=== PATIENT | female | born 1940 | race Caucasian/White ===

== ENCOUNTER 2016-08-31 11:33 | Emergency (ER) | payer MEDICARE, MEDICAID ==
--- NOTE | 2016-08-31 12:30 | RAD ---
EXAM DESCRIPTION: XR CHEST 1 VIEW CLINICAL HISTORY: SOB COMPARISON: May 19, 2016 IMPRESSION: Single AP portable upright view of the chest shows cardiac silhouette to be enlarged without pulmonary vascular congestion. Large right retrocardiac hiatal hernia is again noted. Chronic appearing increased interstitial changes to lungs are seen without acute appearing infiltrate or consolidation. Nodular densities in the periphery of the right upper lobe have a similar appearance to previous exam given differences in imaging technique and patient positioning. Secondary degenerative changes of the shoulders are seen left greater than right. Electronically signed by: Miles Blanton MD 08/31/2016 12:28
--- NOTE | 2016-08-31 12:42 | ED.PDOC ---
History of Present Illness - General Chief Complaint: Respiratory Problem Stated Complaint: wheezing, difficulty breathing Time Seen by Provider: 08/31/16 12:35 Additional Information: PT C/O CONTINUED SOB AND DIFFICULTY BREATHING. - History of Present Illness Timing/Duration: other - 3-4 WEEKS BUT WORSE PAST WEEK Severity: moderate Improving Factors: nothing Worsening Factors: nothing Associated Symptoms: other - SAW PCP. WAS STARTED ON ABX AND PO STEROIDS WITHOUT RELIEF Allergies/Adverse Reactions: Allergies Amitriptyline Allergy (Intermediate, Verified 08/31/16 11:53) Ciprofloxacin [From Cipro] Allergy (Intermediate, Verified 08/31/16 11:53) Codeine Allergy (Intermediate, Verified 08/31/16 11:53) Enalapril [From Vasotec] Allergy (Intermediate, Verified 08/31/16 11:53) Iodine Allergy (Intermediate, Verified 08/31/16 11:53) Naloxone [From Talwin Nx] Allergy (Intermediate, Verified 08/31/16 11:53) Penicillin G Allergy (Intermediate, Verified 08/31/16 11:53) Pentazocine [From Talwin Nx] Allergy (Intermediate, Verified 08/31/16 11:53) Tetanus Toxoid Allergy (Intermediate, Verified 08/31/16 11:53) Home Medications: Ambulatory Orders Acetaminophen [Tylenol] 650 mg PO Q6H PRN 08/25/15 Atorvastatin Calcium [Lipitor] 20 mg PO BEDTIME 08/25/15 Clonazepam 0.5 mg PO BID PRN 08/25/15 Furosemide [Lasix] 40 mg PO DAILY 08/25/15 Lisinopril [Prinivil] 2.5 mg PO DAILY 08/25/15 Montelukast Sodium [Singulair] 10 mg PO BEDTIME 08/25/15 Potassium Chloride [Micro-K] 10 meq PO BIDFD 08/25/15 Escitalopram Oxalate [Lexapro] 20 mg PO DAILY 12/08/15 Famotidine [Pepcid] 20 mg PO BID 12/08/15 Meclizine HCl 25 mg PO DAILY 12/08/15 Mirtazapine [Remeron] 7.5 mg PO BEDTIME 12/08/15 Tramadol HCl [Ultram] 50 mg PO Q6HRS PRN #20 tab 12/08/15 Fluticasone/Salmeterol 250/50 [Advair 250/50 Diskus] 1 puff INH DAILY 05/19/16 Albuterol Sulfate Nebs [Proventil Nebs] 2.5 mg INH TID #100 vial 05/20/16 Cefdinir [Omnicef] 300 mg PO BID #8 cap 05/20/16 Omeprazole Magnesium [Prilosec Otc] 20 mg PO BID #60 tab 05/20/16 predniSONE [Prednisone] 10 mg PO QAM #15 tab 05/20/16 Doxycycline (Monohydrate) [Doxycycline Monohydrate] 100 mg PO BID #20 cap Prednisone [Deltasone] 20 mg PO BID #10 tab 08/31/16 Review of Systems - Review of Systems Constitutional: Denies: chills, fever EENTM: Denies: blurred vision, ear pain, nose congestion, throat pain Respiratory: States: cough, orthopnea, short of breath, wheezing, other - OBSTETRICIAN Cardiology: Denies: chest pain, edema, palpitations, syncope Gastrointestinal/Abdominal: Denies: abdominal pain, nausea, vomiting Genitourinary: States: no symptoms reported Musculoskeletal: States: no symptoms reported Skin: States: no symptoms reported Neurological: Denies: headache, numbness, weakness Endocrine: States: no symptoms reported Hematologic/Lymphatic: States: no symptoms reported Past Medical History (General) - Patient Medical History Hx Seizures: Yes - per previous medical record Hx Stroke: No Hx Dementia: Yes Hx Asthma: Yes Hx of COPD: Yes Hx Cardiac Disorders: Yes Hx Congestive Heart Failure: Yes Hx Pacemaker: No Hx Hypertension: Yes Hx Thyroid Disease: No Hx Diabetes: Yes Hx Gastroesophageal Reflux: Yes Hx Cancer: No Hx of HIV: No Hx Hepatitis C: No Hx MRSA: Yes MRSA Source:: Blood Surgical History: appendectomy, cholecystectomy, tonsillectomy, Hysterectomy - Vaccination History Hx Tetanus, Diphtheria Vaccination: Yes Hx Influenza Vaccination: No Hx Pneumococcal Vaccination: Yes - 2012 (?) - Social History Hx Tobacco Use: Yes Hx Chewing Tobacco Use: No Hx Alcohol Use: No Hx Substance Use: No Hx Substance Use Treatment: No Hx Depression: No Hx Physical Abuse: No Hx Emotional Abuse: No - Female History Patient is a Female of Child Bearing Age (10 -59 yrs old): No Patient : No Family Medical History - Family History Mother Family History: Unknown Living Status: Physical Exam - Physical Exam General Appearance: Alert, No apparent distress Eye Exam: bilateral normal Ears, Nose, Throat: normal ENT inspection, normal pharynx Neck: non-tender, full range of motion, normal inspection Respiratory: other - INCREASED EXP PHASE, DIMINISHED BREATHSOUNDS, CARLA EXP WHEEZES. NO RALES, NO RHONCHI Cardiovascular/Chest: regular rate, rhythm, no edema, no murmur Gastrointestinal/Abdominal: normal bowel sounds, non tender, soft, no organomegaly Back Exam: normal inspection, no CVA tenderness Extremity: non-tender, normal inspection Neurologic: no motor/sensory deficits, normal mood/affect, oriented x 3 Skin Exam: normal color, warm/dry Lymphatic: no adenopathy Progress - Progress Progress: 08/31/16 15:55 FEELS MUCH BETTER. GETTING NEB 3 NOW. STILL WITH SOME WHEEZES BUT STATES THAT'S NL FOR HER. WANTS TO GO HOME. SATS 95% ON 2L WHICH SHE IS ON AT HOME. 08/31/16 15:58 - EKG/XRAY/CT EKG: Sinus, no ST T wave changes Comments: RATE 88, NL AXIS, NL INTERVALS, NO T WAVE ABN. XRAY: chest - DEVEN, COPD EXACERBATION Departure - Departure Clinical Impression: COPD (chronic obstructive pulmonary disease) with acute bronchitis HTN (hypertension) Qualifiers: Hypertension type: essential hypertension Qualifier Code: (I10) Essential ( primary) hypertension Diabetes Qualifiers: Diabetes mellitus type: type 2 Diabetes mellitus complication status: without complication Qualifier Code: (E11.9) Type 2 diabetes mellitus without complications Time of Disposition: 15:59 Disposition: Discharge to Home or Self Care Condition: Fair Departure Forms: ED Discharge - Pt. Copy, Patient Portal Self Enrollment Prescriptions: Prednisone [Deltasone] 20 mg PO BID #10 tab Doxycycline (Monohydrate) [Doxycycline Monohydrate] 100 mg PO BID #20 cap Home Medications: Ambulatory Orders Acetaminophen [Tylenol] 650 mg PO Q6H PRN 08/25/15 Atorvastatin Calcium [Lipitor] 20 mg PO BEDTIME 08/25/15 Clonazepam 0.5 mg PO BID PRN 08/25/15 Furosemide [Lasix] 40 mg PO DAILY 08/25/15 Lisinopril [Prinivil] 2.5 mg PO DAILY 08/25/15 Montelukast Sodium [Singulair] 10 mg PO BEDTIME 08/25/15 Potassium Chloride [Micro-K] 10 meq PO BIDFD 08/25/15 Escitalopram Oxalate [Lexapro] 20 mg PO DAILY 12/08/15 Famotidine [Pepcid] 20 mg PO BID 12/08/15 Meclizine HCl 25 mg PO DAILY 12/08/15 Mirtazapine [Remeron] 7.5 mg PO BEDTIME 12/08/15 Tramadol HCl [Ultram] 50 mg PO Q6HRS PRN #20 tab 12/08/15 Fluticasone/Salmeterol 250/50 [Advair 250/50 Diskus] 1 puff INH DAILY 05/19/16 Albuterol Sulfate Nebs [Proventil Nebs] 2.5 mg INH TID #100 vial 05/20/16 Cefdinir [Omnicef] 300 mg PO BID #8 cap 05/20/16 Omeprazole Magnesium [Prilosec Otc] 20 mg PO BID #60 tab 05/20/16 predniSONE [Prednisone] 10 mg PO QAM #15 tab 05/20/16 Doxycycline (Monohydrate) [Doxycycline Monohydrate] 100 mg PO BID #20 cap Prednisone [Deltasone] 20 mg PO BID #10 tab 08/31/16
[2016-08-31] MEDS ORDERED: IPRATROPIUM/ALBUTEROL 3 ML VIAL NEB ONE ×2 (12:53→14:58)
[2016-08-31] MEDS ORDERED: methylPREDNISolone SODIUM SUC 125 MG/2 ML VIAL IV ONE (12:55)
[2016-08-31 16:43] VITALS: BP 152/74; TEMP 99.1; O2SAT 95
== END 2016-08-31 16:07 | disposition home or self-care (01) ==
LOC: ER 11:33
DX: J44.0 Chronic obstructive pulmonary disease with (acute) lower respiratory infection (principal); J20.9 Acute bronchitis, unspecified; E11.9 Type 2 diabetes mellitus without complications; Z99.81 Dependence on supplemental oxygen; Z79.899 Other long term (current) drug therapy; Z88.6 Allergy status to analgesic agent; Z88.0 Allergy status to penicillin; Z88.7 Allergy status to serum and vaccine; Z88.8 Allergy status to other drugs, medicaments and biological substances; F03.90 Unspecified dementia, unspecified severity, without behavioral disturbance, psychotic disturbance, mood disturbance, and anxiety; I11.0 Hypertensive heart disease with heart failure; I50.9 Heart failure, unspecified; K21.9 Gastro-esophageal reflux disease without esophagitis; Z86.14 Personal history of Methicillin resistant Staphylococcus aureus infection; Z87.891 Personal history of nicotine dependence
CPT/HCPCS: 36415; 71010; 80048; 82550; 82553; 83880; 84484; 85025; 85610; 85730; 93005; 94640; J2930; J7620

== ENCOUNTER 2016-09-21 11:14 | Inpatient (IN) | payer MEDICARE, MEDICAID ==
[2016-09-21] MEDS ORDERED: IPRATROPIUM/ALBUTEROL 3 ML VIAL NEB ONE ×2 (12:09→12:10)
[2016-09-21] MEDS ORDERED: cefTRIAXone SODIUM 1 GM in SODIUM CHL 0.9% 50ML MIN-BAG+ 50 ML IVPB ONE (12:09)
[2016-09-21] MEDS ORDERED: cefTRIAXone SODIUM 1 GM VIAL ONE (12:22)
[2016-09-21] MEDS ORDERED: SODIUM CHL 0.9% 50ML MIN-BAG+ 50 ML IVPB ONE (12:22)
--- NOTE | 2016-09-21 12:38 | RAD ---
EXAM DESCRIPTION: XR CHEST 2 VIEWS CLINICAL HISTORY: sob COMPARISON: None Available. TECHNIQUE: PA/lateral FINDINGS: Moderate size hiatal hernia. Cardiomegaly. Atherosclerotic disease of the aortic arch. The lungs are clear. No pleural effusion or pneumothorax. Coronaries-. IMPRESSION: No acute findings on today's study. Electronically signed by: Theo Daniels MD 09/21/2016 12:37
--- NOTE | 2016-09-21 12:38 | RAD ---
EXAM DESCRIPTION: Abdomen radiography. CLINICAL HISTORY: Abdominal pain. COMPARISON: None. TECHNIQUE: One view. FINDINGS: Bowel gas pattern is non-obstructed. There is no obvious free intraperitoneal air. Visualized segments of the abdominal organs are unremarkable. No suspicious bone lesion or fracture is seen. Multilevel lumbar fusion and scoliosis. IMPRESSION: Nonspecific small bowel gas pattern. Possible constipation. Electronically signed by: Theo Daniels MD 09/21/2016 12:36
[2016-09-21] MEDS ORDERED: methylPREDNISolone SODIUM SUC 125 MG/2 ML VIAL IV ONE (13:43)
[2016-09-21] MEDS ORDERED: SODIUM CHL 0.9% 50ML VIAL 3 ML, ALBUTEROL SULFATE NEBS 15 MG NEB ONE ×2 (13:43)
[2016-09-21] MEDS ORDERED: AZITHROMYCIN 250 MG TAB PO ONE (13:44)
[2016-09-21] MEDS ORDERED: MONTELUKAST SODIUM 10 MG TAB PO ONE (13:44)
[2016-09-21] MEDS ORDERED: SODIUM CHLORIDE 0.9% 50 ML VIAL ONE (14:10)
[2016-09-21] MEDS ORDERED: ALBUTEROL SULFATE 2.5 MG/3 ML VIAL NEB ONE ×2 (14:10)
--- NOTE | 2016-09-21 16:41 | ED.PDOC ---
History of Present Illness - General Chief Complaint: Respiratory Problem Stated Complaint: shortness of breath Time Seen by Provider: 09/21/16 12:03 Source: patient Exam Limitations: no limitations - History of Present Illness Initial Comments: The patient is a 76-year-old female presenting to the emergency room secondary to progressive shortness of breath. She has a history of significant COPD and asthma in the past and has had multiple admissions due to this. She denies any fevers. She thinks she may have a mildly productive cough. She is having some increased pain in her right chest with the cough. Symptoms have been progressive over the last week. No syncope or near syncope. She does get very short of breath with any movement. She does have home oxygen. She reports that she has been doing her nebulizer treatments but they've apparently only been done twice daily. Timing/Duration: 1 week Severity: severe Improving Factors: nothing Worsening Factors: nothing Associated Symptoms: cough, malaise, shortness of breath, weakness Allergies/Adverse Reactions: Allergies Amitriptyline Allergy (Intermediate, Verified 08/31/16 11:53) Ciprofloxacin [From Cipro] Allergy (Intermediate, Verified 08/31/16 11:53) Codeine Allergy (Intermediate, Verified 08/31/16 11:53) Enalapril [From Vasotec] Allergy (Intermediate, Verified 08/31/16 11:53) Iodine Allergy (Intermediate, Verified 08/31/16 11:53) Naloxone [From Talwin Nx] Allergy (Intermediate, Verified 08/31/16 11:53) Penicillin G Allergy (Intermediate, Verified 08/31/16 11:53) Pentazocine [From Talwin Nx] Allergy (Intermediate, Verified 08/31/16 11:53) Tetanus Toxoid Allergy (Intermediate, Verified 08/31/16 11:53) Home Medications: Ambulatory Orders Acetaminophen [Tylenol] 650 mg PO Q6H PRN 08/25/15 Atorvastatin Calcium [Lipitor] 20 mg PO BEDTIME 08/25/15 Clonazepam 0.5 mg PO BID PRN 08/25/15 Furosemide [Lasix] 40 mg PO DAILY 08/25/15 Lisinopril [Prinivil] 2.5 mg PO DAILY 08/25/15 Montelukast Sodium [Singulair] 10 mg PO BEDTIME 08/25/15 Potassium Chloride [Micro-K] 10 meq PO BIDFD 08/25/15 Escitalopram Oxalate [Lexapro] 20 mg PO DAILY 12/08/15 Famotidine [Pepcid] 20 mg PO BID 12/08/15 Meclizine HCl 25 mg PO DAILY 12/08/15 Mirtazapine [Remeron] 7.5 mg PO BEDTIME 12/08/15 Tramadol HCl [Ultram] 50 mg PO Q6HRS PRN #20 tab 12/08/15 Fluticasone/Salmeterol 250/50 [Advair 250/50 Diskus] 1 puff INH DAILY 05/19/16 Albuterol Sulfate Nebs [Proventil Nebs] 2.5 mg INH TID #100 vial 05/20/16 Cefdinir [Omnicef] 300 mg PO BID #8 cap 05/20/16 Omeprazole Magnesium [Prilosec Otc] 20 mg PO BID #60 tab 05/20/16 predniSONE [Prednisone] 10 mg PO QAM #15 tab 05/20/16 Doxycycline (Monohydrate) [Doxycycline Monohydrate] 100 mg PO BID #20 cap Prednisone [Deltasone] 20 mg PO BID #10 tab 08/31/16 Review of Systems - Review of Systems Constitutional: States: malaise, weakness EENTM: States: nose congestion Respiratory: States: cough, short of breath, wheezing Cardiology: States: no symptoms reported, chest pain - see above Gastrointestinal/Abdominal: States: no symptoms reported Genitourinary: States: no symptoms reported Musculoskeletal: States: no symptoms reported Skin: States: no symptoms reported Neurological: States: no symptoms reported Endocrine: States: no symptoms reported All other Systems: No Change from Baseline Past Medical History (General) - Patient Medical History Hx Seizures: Yes - per previous medical record Hx Stroke: No Hx Dementia: Yes Hx Asthma: Yes Hx of COPD: Yes Hx Cardiac Disorders: Yes Hx Congestive Heart Failure: Yes Hx Pacemaker: No Hx Hypertension: Yes Hx Thyroid Disease: No Hx Diabetes: Yes Hx Gastroesophageal Reflux: Yes Hx Cancer: No Hx of HIV: No Hx Hepatitis C: No Hx MRSA: Yes MRSA Source:: Blood - Vaccination History Hx Tetanus, Diphtheria Vaccination: Yes Hx Influenza Vaccination: No Hx Pneumococcal Vaccination: Yes - 2012 (?) - Social History Hx Tobacco Use: Yes Hx Chewing Tobacco Use: No Hx Alcohol Use: No Hx Substance Use: No Hx Substance Use Treatment: No Hx Depression: No Hx Physical Abuse: No Hx Emotional Abuse: No - Female History Patient : No Family Medical History - Family History Mother Family History: Unknown Living Status: Physical Exam - Physical Exam General Appearance: Alert, Obvious distress Eye Exam: bilateral normal Ears, Nose, Throat: normal pharynx, nasal congestion Neck: full range of motion, supple Respiratory: other - the patient does have some right lower rib cage discomfort palpation. No bruising. No crepitus. She has severely decreased air movement bilaterally. Breath sounds are actually very quiet initially due to this. Mild scattered wheezes. No rhonchi and no rales are obvious. She does have significant accessory muscle use and is in some reported distress upon arrival. Cardiovascular/Chest: normal peripheral pulses, no edema Peripheral Pulses: radial,right: 2+, radial,left: 2+, dorsalis pedis,right: 2+, dorsalis pedis,left: 2+ Gastrointestinal/Abdominal: non tender, soft Rectal Exam: deferred Back Exam: normal inspection, no CVA tenderness, no vertebral tenderness Extremity: normal range of motion, non-tender, normal inspection, no pedal edema , normal capillary refill Neurologic: no motor/sensory deficits, alert, normal mood/affect, oriented x 3 - she does have some mild dementia Skin Exam: normal color Comments: Vital Signs - 24 hr 09/21/16 09/21/16 11:15 12:20 Temperature 99.3 F Pulse Rate 92 H Pulse Rate [ 88 monitor] Respiratory 22 20 Rate Blood Pressure 174/71 [Left Arm] O2 Sat by Pulse 93 L 94 L Oximetry Progress - Progress Progress: 09/21/16 16:43 the patient is a 76-year-old female presenting with an acute COPD or asthma exacerbation. She does have very little air movement initially. She does have better air movement after an hour-long nebulizer treatment. She has also received IV steroids and some oral Singulair. The patient actually sounds much worse now but that simply because she is actually moving some air. Work of breathing has decreased. The patient will be admitted for COPD exacerbation. She has received her first dose of antibiotics. No obvious pneumonia on x- ray or exam at this time. - Results/Orders Results/Orders: 09/21/16 12:10 Telemetry .CONTINUOUS 09/21/16 12:11 Oxygen Delivery Assessment: QSHIFT UA [URINALYSIS] Stat pending at this time 09/22/16 09:00 Oxygen Daily Laboratory Results - last 24 hr 09/21/16 13:00 WBC 16.0 H RBC 3.58 L Hgb 10.6 L Hct 33.3 L MCV 93.0 MCH 29.6 MCHC 31.8 L RDW 14.0 Plt Count 113 L MPV 8.3 Absolute Neuts (auto) 12.90 H Absolute Lymphs (auto) 1.90 Absolute Monos (auto) 0.90 H Absolute Eos (auto) 0.20 Absolute Basos (auto) 0.10 Neutrophils % 80.8 H Lymphocytes % 12.0 L Monocytes % 5.6 Eosinophils % 1.2 Basophils % 0.4 PT 10.7 INR 0.940 PTT (SP) 23.7 L Sodium 139 Potassium 4.1 Chloride 103 Carbon Dioxide 30 Anion Gap 10.1 L BUN 33 H Creatinine 1.23 BUN/Creatinine Ratio 26.8 H Random Glucose 178 H Serum Osmolality 289.2 Calcium 9.1 Total Bilirubin 0.6 AST 16 ALT 17 Alkaline Phosphatase 73 Creatine Kinase 29 CK-MB (CK-2) 4.0 CK-MB (CK-2) % Not Reportable Troponin I 0.02 B-Natriuretic Peptide 114.0 H Serum Total Protein 6.5 Albumin 3.6 Globulin 2.9 Albumin/Globulin Ratio 1.2 chest x-ray shows emphysematous type changes. No obvious pneumonia. Departure - Departure Clinical Impression: COPD (chronic obstructive pulmonary disease) with acute bronchitis Disposition: Admit Patient Home Medications: Ambulatory Orders Acetaminophen [Tylenol] 650 mg PO Q6H PRN 08/25/15 Atorvastatin Calcium [Lipitor] 20 mg PO BEDTIME 08/25/15 Clonazepam 0.5 mg PO BID PRN 08/25/15 Furosemide [Lasix] 40 mg PO DAILY 08/25/15 Lisinopril [Prinivil] 2.5 mg PO DAILY 08/25/15 Montelukast Sodium [Singulair] 10 mg PO BEDTIME 08/25/15 Potassium Chloride [Micro-K] 10 meq PO BIDFD 08/25/15 Escitalopram Oxalate [Lexapro] 20 mg PO DAILY 12/08/15 Famotidine [Pepcid] 20 mg PO BID 12/08/15 Meclizine HCl 25 mg PO DAILY 12/08/15 Mirtazapine [Remeron] 7.5 mg PO BEDTIME 12/08/15 Tramadol HCl [Ultram] 50 mg PO Q6HRS PRN #20 tab 12/08/15 Fluticasone/Salmeterol 250/50 [Advair 250/50 Diskus] 1 puff INH DAILY 05/19/16 Albuterol Sulfate Nebs [Proventil Nebs] 2.5 mg INH TID #100 vial 05/20/16 Cefdinir [Omnicef] 300 mg PO BID #8 cap 05/20/16 Omeprazole Magnesium [Prilosec Otc] 20 mg PO BID #60 tab 05/20/16 predniSONE [Prednisone] 10 mg PO QAM #15 tab 05/20/16 Doxycycline (Monohydrate) [Doxycycline Monohydrate] 100 mg PO BID #20 cap Prednisone [Deltasone] 20 mg PO BID #10 tab 08/31/16 Decision To Admit - Decistion To Admit Decision to Admit Reason: Medical Nature Decision to Admit Date: 09/21/16 Decision to Admit Time: 16:44
--- NOTE | 2016-09-21 17:07 | HP ---
SUPERVISING PHYSICIAN: Jarod Tapia MD CHIEF COMPLAINT: Shortness of breath. HISTORY OF PRESENT ILLNESS: Ms. Ramirez is a 76 year-old female who presented to the Emergency Department secondary to worsening shortness of breath. She does have a significant history of chronic obstructive pulmonary disease, asthma and has had multiple admissions in the past for exacerbations. Today, she denies a fever but she thinks she has a worsening cough with some noted chest discomfort with coughing spells on the right side. She notes that her symptoms have been worsening over the last 7 days and that she gets very short of breath with any exertion. She does wear oxygen at home and has been utilizing her breathing treatments but only as prescribed and not using any additional treatments for worsening of her wheezing or shortness of breath. Laboratory studies performed in the Emergency Department showed her to have a leukocytosis with a 16.0 white count with a left shift. Chemistries were fairly unremarkable except for a low magnesium of 1.3 and her BNP was 114. Radiographic studies included abdominal x-ray that showed just nonspecific bowel gas pattern with some possible constipation and chest x-ray indicated per radiology interpretation a moderate sized hiatal hernia. The lungs were essentially clear with no pleural effusions or pneumothorax noted. Initially on her presentation to the Emergency Department, she was in significant shortness of breath at 20 to 24, saturation 93% on nasal cannula at rest and was afebrile. She was given a Duoneb continuous in attempts to lessen her exacerbation of asthma as it was noted she had very little movement of air on admission. She was also given steroids and some Singulair. It was noted that after the breathing treatment, the patient was actually moving some air but her lungs sounded much worse than they did on presentation but her work of breathing had decreased. With the symptoms that she presented with, significantly dyspneic with some mild respiratory distress and having minimally responded to a continuous Duoneb treatment, the patient is now going to be admitted for exacerbation of her chronic obstructive pulmonary disease. She was started on antibiotics and steroids prior to admission. She was admitted in stable condition. PAST MEDICAL HISTORY: 1. Chronic obstructive pulmonary disease with history of asthma and reactive airways disease. 2. Diabetes mellitus, type 2, on no oral or insulin therapy. 3. Hypertension. 4. Degenerative joint disease. 5. History of osteoporosis. 6. 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 7. Rheumatoid arthritis. 8. Gastroesophageal reflux disease. 9. Chronic congestive heart failure with unknown etiology with last echocardiogram in 01/2013 with a notable ejection fraction of 65%. 10. Depression. 11. History of iron deficiency anemia. 12. History of diverticulosis by colonoscopy in [address] Lai. 13. History of restless leg syndrome. PAST SURGICAL HISTORY: 1. Bilateral hip replacement. 2. Left knee replacement. 3. Hysterectomy. 4. Bladder suspension. 5. Breast reduction. 6. Hernia repair. 7. Back surgery. 8. Tonsils and adenoids. 9. Appendectomy. 10. Cholecystectomy. 11. Right cataract removal. HOME MEDICATIONS: 1. Prednisone 10 mg daily. 2. Ultram 50 mg every 6 hours as needed for pain. 3. Prednisone 20 mg b.i.d. 4. Potassium chloride 20 mEq twice a day. 5. Prilosec 20 mg twice a day. 6. Singulair 10 mg at bedtime. 7. Remeron 7.5 mg at bedtime. 8. Meclizine 25 mg daily. 9. Lisinopril 2.5 mg daily. 10. Lasix 40 mg daily. 11. Advair 250/50 Diskus one puff inhaled daily. 12. Pepcid 20 mg twice daily. 13. Lexapro 20 mg daily. 14. Clonazepam 0.5 mg twice daily. 15. Lipitor 20 mg daily. 16. Proventil nebs 2.5 mg 3 times a day. 17. Tylenol 650 mg every 6 hours for pain. ALLERGIES: AMITRIPTYLINE, CIPROFLOXACIN, CODEINE, VASOTEC, IODINE, NALOXONE, PENICILLIN G, PENTAZOCINE, TETANUS TOXOID, MORPHINE. FAMILY HISTORY: Asthma, congestive heart failure, diabetes, coronary artery disease. SOCIAL HISTORY: The patient is . She lives at home with her 2 brothers. 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 She denies ever smoking, but has been around a significant amount of second hand smoke over her lifetime. She denies drinking any alcohol or any illicit drug use. REVIEW OF SYSTEMS: She does note some fevers and chills but no significant weight change. HEENT: No report of hearing or visual changes. CARDIOVASCULAR: Denies any chest pain other than chest pains on the right side with deep inspiration and coughing, no palpitations or syncopal episodes. RESPIRATORY: Significant shortness of breath on exertion as noted in history of present illness with a worsening productive cough. GASTROINTESTINAL: Negative for any vomiting, diarrhea, nausea but does some have some issues with constipation but denies any abdominal pain. GENITOURINARY: Denies dysuria, increased frequency or other urinary symptoms. EXTREMITIES; Reports that she does have periodic lower extremity edema that she takes Lasix for as needed. NEUROLOGICAL: Denies any significant headaches, focal weaknesses but reports that she has had some syncopal episodes in the distant past but none recently. PHYSICAL EXAMINATION: VITAL SIGNS: Temperature 99.3, pulse 88, blood pressure 174/71, respirations 22, 02 saturation 92% on nasal cannula at rest at 2 liters. GENERAL: The patient is alert, resting upon admission to the medical/surgical floor, appears to be in no acute distress. HEENT: Tympanic membranes bilaterally are clear. Oropharynx is pink and moist without any lesions. There is some notable nasal congestion but no drainage. NECK: No jugular venous distention. CHEST: Lungs are notable for severely decreased air movement bilaterally with some wheezing heard throughout, more expiratory than inspiratory. No rhonchi or rales. CARDIOVASCULAR: Regular rate and rhythm without any appreciable murmurs, rubs, or gallops. ABDOMEN: Soft, non-tender, positive bowel sounds. EXTREMITIES: No cyanosis, clubbing, or edema. NEUROLOGIC: She is alert and oriented x 3. Facial features are symmetrical. Extraocular movements are within normal limits. Cranial nerves II through XII are grossly intact. There is no notable focalizing or lateralizing neuromotor deficits. LABORATORY White count 16.0, hemoglobin 10.6, hematocrit 33.3, platelet count 113,000, differential does show a left shift. Coagulation studies show a PT of 10.7, PTT of 23.7. Chemistries show normal electrolytes with a potassium of 4.1 , BUN 32, creatinine 1.23, glucose 178, calcium 9.8, magnesium low at 1.3. Liver functions showed to be within normal limits. BNP was only slightly elevated at 114. Blood cultures pending. Influenza A and B negative. Sputum cultures pending. RADIOLOGY: Abdominal x-ray per radiology interpretation was nonspecific bowel gas pattern with possible constipation. Chest x-ray per radiology interpretation prior to admission to the medical/surgical floor 2 view chest showed no acute findings. ASSESSMENT: 1. Exacerbation of chronic obstructive pulmonary disease with concerns for pneumonia community acquired, with the patient having significant leukocytosis and history of frequent hospitalizations secondary to exacerbation of her chronic obstructive pulmonary disease with patient being in mild respiratory distress upon admission to the Emergency Department. 2. Right-sided chest wall discomfort with deep inspiration without any obvious crepitus in a patient with acute exacerbation of chronic obstructive pulmonary disease with sputum cultures pending. 3. Macrocytic hyperchromic anemia with the patient having a history of iron-deficiency anemia. 4. Gastroesophageal reflux disease. 5. Leukocytosis, moderate with concerns for a developing pneumonia in a patient with severe chronic obstructive pulmonary disease and exacerbation. 6. History of diverticulosis. 7. History of hypertension. 8. Type 2 diabetes mellitus currently on no oral or insulin regimen. 9. Chronic congestive heart failure, undetermined etiology with last echocardiogram in January 2013 with an ejection fraction of 65%. 10. Electrolyte imbalance with a moderate hypomagnesemia. 11. Mild renal insufficiency with slightly elevated BNP possibly secondary to some mild dehydration. 12. History of seizure disorder with no recent mention of any seizures. 13. 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 14. History of osteoporosis. 15. History of depression. 16. History of restless leg syndrome with the patient being on Klonopin and Remeron. 17. Chronic constipation. PLAN: The patient is admitted to the medical/surgical floor for continued treatment and evaluation secondary to her exacerbation of chronic obstructive pulmonary disease. She was given an initial continuous neb treatment in the Emergency Department showing improvements in aeration and stabilization. She was started on antibiotics to include azithromycin, Ceftriaxone which will be continued awaiting a sputum culture. She will be started on q.i.d. Duoneb treatments and albuterol p.r.n. with aggressive pulmonary hygiene and pulmonary toiletry. She will be given 2 grams of magnesium IV tonight and we will recheck the magnesium in the morning. We will plan to recheck additional laboratory to include CBC and BNP as well as a repeat chest x-ray. We will restart her medications once they have been updated and verified. Will anticipate length of stay to be 2 to 3 days. Until the, we will continue to monitor the patient closely and treat appropriately. #[id number] [facility]
[2016-09-21] MEDS ORDERED: ALBUTEROL SULFATE 2.5 MG/3 ML VIAL NEB PRN (17:32)
[2016-09-21] MEDS ORDERED: ONDANSETRON INJ 4 MG/2 ML VIAL IV PRN (17:32)
[2016-09-21] MEDS ORDERED: SODIUM CHLORIDE 0.9% (FLUSH) 10 ML SYG IV PRN (17:32)
[2016-09-21] MEDS ORDERED: ACETAMINOPHEN 325 MG TAB PO PRN (17:32)
[2016-09-21] MEDS ORDERED: IV SET AND CAP CHANGE INJ INJ SCH (18:00)
--- NOTE | 2016-09-21 18:11 | PCM.CORE ---
Physician DVT/VTE - Nurse DVT Assessment & Total Each Risk Factor Represents 3 Points: Age over 75 years, Medical PT with Hx of ND, CHF, Severe infection/sepsis Each Risk Factor is 1 Point: Obesity (BMI >25), Serious Lung disease (pnemonia < 1month, COPD, emphysema,etc) DVT Assessment Score: 8 - 5 or more Very High Risk Treatments: Early Ambulation *, Sequential Compression Device Pharmacological: Enoxaparin 40mg SQ Daily
[2016-09-21] MEDS: ENOXAPARIN SODIUM 40 MG/0.4 ML SYG SUBCU SCH (18:45)
[2016-09-21] MEDS: IPRATROPIUM/ALBUTEROL 3 ML VIAL NEB SCH ×2 (20:45→20:46)
[2016-09-21] MEDS ORDERED: SODIUM CHLORIDE 0.9% (FLUSH) 10 ML SYG IV SCH (21:00)
[2016-09-21] MEDS ORDERED: MAGNESIUM SULFATE PREMIX 2GM 2 GM in PREMIX BAG 1 BAG IVPB ONE (22:33)
[2016-09-21] MEDS ORDERED: MAGNESIUM SULFATE PREMIX 2GM 50 ML IVPB ONE (23:23)
[2016-09-22] MEDS: PANTOPRAZOLE SODIUM IV 40 MG VIAL IV SCH (06:14)
[2016-09-22] MEDS ORDERED: GLUCAGON INJ 1 MG VIAL SUBCU PRN (06:35)
[2016-09-22] MEDS ORDERED: DEXTROSE 50% 25 GM/50 ML SYG IV PRN (06:35)
[2016-09-22] MEDS: INSULIN LISPRO 100 UNITS/ML PEN SUBCU SCH ×4 (06:41→21:18)
[2016-09-22] MEDS ORDERED: AZITHROMYCIN IV 500 MG VIAL IVPB ONE (07:37)
[2016-09-22] MEDS ORDERED: SODIUM CHLORIDE 0.9% 250ML 250 ML ONE (07:37)
[2016-09-22] MEDS ORDERED: SODIUM CHL 0.9% 50ML MIN-BAG+ 50 ML IVPB ONE (07:37)
[2016-09-22] MEDS ORDERED: cefTRIAXone SODIUM 1 GM VIAL ONE (07:37)
--- NOTE | 2016-09-22 07:38 | RAD ---
EXAM DESCRIPTION: XR CHEST 2 VIEWS CLINICAL HISTORY: Pneumonia COMPARISON: 09/21/2016 and 05/19/2016 TECHNIQUE: Two-views of the chest. FINDINGS: Heart size is normal. Large hiatal hernia. No evidence of both hilar adenopathy. Irregular/linear opacity right infrahilar region may relate to perihilar atelectasis or scar. Mild chronic interstitial lung disease right upper lobe laterally. No alveolar consolidation Osteopenia. Compression fracture lower thoracic spine, stable IMPRESSION: Large hiatal hernia Right perihilar/infrahilar linear opacity likely subsegmental atelectasis or scar, not significantly changed Interstitial lung disease in the upper lobe on the right, scar unchanged No acute infiltrate Electronically signed by: Jarod Veloz MD 09/22/2016 07:36
[2016-09-22] MEDS: KCL 20MEQ/0.45% NS 1,000 ML IVS PRN ×2 (07:57→23:38)
[2016-09-22] MEDS: IPRATROPIUM/ALBUTEROL 3 ML VIAL NEB SCH ×4 (08:32→20:28)
[2016-09-22] MEDS ORDERED: CALCIUM CARBONATE-VITAMIN D 500 MG TAB ONE (11:45)
[2016-09-22] MEDS: cefTRIAXone SODIUM 1 GM in SODIUM CHL 0.9% 50ML MIN-BAG+ 50 ML IVPB SCH (12:22)
[2016-09-22] MEDS ORDERED: SODIUM CHLORIDE 0.9% 10 ML VIAL INJ PRN (12:59)
[2016-09-22] MEDS: AZITHROMYCIN IV 500 MG in SODIUM CHLORIDE 0.9% 250ML 250 ML IVPB SCH (14:11)
[2016-09-22] MEDS: ENOXAPARIN SODIUM 40 MG/0.4 ML SYG SUBCU SCH (18:05)
[2016-09-22] MEDS ORDERED: traMADol HCL 50 MG TAB PO PRN (19:38)
[2016-09-22] MEDS ORDERED: NON-FORMULARY MEDICATION 1 EA MIS (Escitalopram Oxalate [Lexapro] 20 MG) PO SCH (19:45)
[2016-09-22] MEDS ORDERED: INSULIN DETEMIR 100 UNITS/ML PEN SUBCU ONE (20:10)
[2016-09-22] MEDS ORDERED: methylPREDNISolone SODIUM SUC 40 MG/ML VIAL IV ONE (20:25)
[2016-09-22] MEDS ORDERED: ESCITALOPRAM 10 MG TAB ONE (20:36)
--- NOTE | 2016-09-22 20:56 | PN ---
DATE: 09/22/16 SUBJECTIVE: The patient is sitting up in the bed having noticeable difficulty in breathing. She is able to talk but her voice is a little hoarse and is having some difficulty in completing full sentences. In some regard, she feels a little better today than yesterday, but needs further improvement. Appetite is fair. After her arrival into the hospital, she had a significant rise in her sugars from the 180s up over 400s probable related to the glucocorticoid administration in the Emergency Room. OBJECTIVE: Afebrile, blood pressure 166/69, pulse oximetry 95% on 2 liters. Weight 77.1 kilos. The patient is fairly alert and communicative. Her voice is somewhat soft, slightly hoarse at times. She is describing some right sided lateral chest wall discomfort upon deep breathing with an occasional cough similar to what she had when she came in, though the pain is a little bit better now that she is more bedfast. Significant back pain is noted after repeat back surgeries and fusion with scoliosis. She is scheduled for Dr. Bonilla to do injections tomorrow to assist her with this back pain. LUNGS: Have diminished breath sounds though slightly improved compared to that reported upon admission. She does have some end expiratory wheezing persistent. She received Solu-Medrol 125 in the Emergency Room as a 1 time dose with a repeat to be given now at a lower dose. HEART: Tones regular. ABDOMEN: Soft. LABORATORY: White count is elevated at 16,200 with 95% neutrophils, hemoglobin 10. INR is 0.94. Chemistry is abnormal with potassium up to 5.1, BUN 38, creatinine 1.25 while sugar was this morning 457 up to 385 at noontime. Magnesium 1.3 and she received some parenteral magnesium supplements. Urinalysis pending. X-RAY: Chest x-ray reveals some evidence of COPD with some old scarring especially in the right lung infrahilar and the right upper lobe. No specific infiltrates evident. ASSESSMENT: 1. Chronic obstructive pulmonary disease, severe with an acute exacerbation requiring pulmonary hygiene, corticosteroid administration and antibiotics to assist with the significant state. 2. Right sided chest wall pain probable pleurisy related to underlying chronic obstructive pulmonary disease with sputum pending. 3. Chronic anemia with normocytic hypochromic presentation. 4. Significant leukocytosis probably aggravated by the corticosteroid administration. 5. Significant hyperglycemia probably secondary to corticosteroid administration. 6. History of gastroesophageal reflux disease. 7. History of diverticulosis. 8. History of hypertension. 9. Diabetes mellitus type 2 currently on no medication program, but having to be started on sliding scale Humalog as well as Levemir to help control. 10. Chronic congestive heart failure of undetermined etiology with the last echocardiogram in January of 2013 with an ejection fraction of 65%. 11. Hyperkalemia with reevaluation. 12. Hypomagnesemia requiring supplementation. 13. Renal insufficiency. 14. History of seizure disorder. 15. Degenerative joint disease of the knees as well as lumbar spine with pain and significant scoliosis. 16. History of osteoporosis. 17. History of depression. 18. History of restless leg syndrome. 19. Chronic constipation. PLAN: Will contact Dr. Bonilla and notify him of the patient's presence in the hospital regarding her scheduled injections for chronic pain with scoliosis and degenerative changes of the spine. This procedure is scheduled for tomorrow. In the meantime, will continue with corticosteroid administration but try to taper quickly and see if there is a way to assist her ongoing breathing. Will followup electrolytes in the morning. Ambulation studies as possible and close followup is necessary with the patient's severe condition being noted. #[id number] [facility] CENTERBrenda
[2016-09-22] MEDS: MONTELUKAST SODIUM 10 MG TAB PO SCH (21:19)
[2016-09-22] MEDS: LISINOPRIL 5 MG TAB PO SCH (21:20)
[2016-09-22] MEDS: MIRTAZAPINE 15 MG TAB PO SCH (21:21)
[2016-09-22] MEDS: predniSONE 10 MG TAB PO SCH (21:22)
[2016-09-23] MEDS: PANTOPRAZOLE SODIUM IV 40 MG VIAL IV SCH (06:15)
[2016-09-23] MEDS ORDERED: SODIUM CHL 0.9% 50ML MIN-BAG+ 50 ML IVPB ONE (07:17)
[2016-09-23] MEDS ORDERED: SODIUM CHLORIDE 0.9% 250ML 250 ML ONE (07:17)
[2016-09-23] MEDS ORDERED: FUROSEMIDE 40 MG TAB ONE (07:17)
[2016-09-23] MEDS ORDERED: AZITHROMYCIN IV 500 MG VIAL IVPB ONE (07:18)
[2016-09-23] MEDS ORDERED: cefTRIAXone SODIUM 1 GM VIAL ONE (07:18)
[2016-09-23] MEDS ORDERED: ESCITALOPRAM 10 MG TAB ONE (07:18)
[2016-09-23] MEDS ORDERED: NON-FORMULARY MEDICATION 1 EA MIS (Potassium Chloride [Micro-K] 10 MEQ) PO SCH (07:30)
[2016-09-23] MEDS: INSULIN LISPRO 100 UNITS/ML PEN SUBCU SCH ×4 (07:33→21:30)
[2016-09-23] MEDS: POTASSIUM CHLORIDE 10 MEQ TAB PO SCH ×2 (07:38→17:04)
[2016-09-23] MEDS: ESCITALOPRAM 10 MG TAB PO SCH (09:07)
[2016-09-23] MEDS: LISINOPRIL 5 MG TAB PO SCH (09:08)
[2016-09-23] MEDS: FUROSEMIDE 40 MG TAB PO SCH (09:08)
[2016-09-23] MEDS: predniSONE 10 MG TAB PO SCH (09:08)
[2016-09-23] MEDS: IPRATROPIUM/ALBUTEROL 3 ML VIAL NEB SCH ×4 (11:23→20:34)
[2016-09-23] MEDS: cefTRIAXone SODIUM 1 GM in SODIUM CHL 0.9% 50ML MIN-BAG+ 50 ML IVPB SCH (12:11)
[2016-09-23] MEDS: FLUTICASONE/SALMETEROL 250/50 14 PUFF/17 GM INH INH SCH (13:08)
[2016-09-23] MEDS: AZITHROMYCIN IV 500 MG in SODIUM CHLORIDE 0.9% 250ML 250 ML IVPB SCH (13:36)
[2016-09-23] MEDS ORDERED: SOD POLYSTYRENE SULFONATE 15 GM/60 ML BTTL PO ONE ×2 (16:39→23:00)
[2016-09-23] MEDS ORDERED: INSULIN DETEMIR 100 UNITS/ML PEN SUBCU ONE (16:39)
[2016-09-23] MEDS ORDERED: BIFIDOBACTERIUM INFANTIS 4 MG CAP ONE (16:50)
[2016-09-23] MEDS ORDERED: SODIUM CHLORIDE 0.9% 1000ML 1,000 ML IVS PRN (17:17)
[2016-09-23] MEDS ORDERED: glipiZIDE 5 MG TAB ONE (17:25)
[2016-09-23] MEDS: BIFIDOBACTERIUM INFANTIS 4 MG CAP PO SCH ×2 (17:27→20:35)
[2016-09-23] MEDS: glipiZIDE EXTENDED REL (XL) 5 MG TAB PO SCH (17:28)
[2016-09-23] MEDS: ENOXAPARIN SODIUM 40 MG/0.4 ML SYG SUBCU SCH (18:01)
--- NOTE | 2016-09-23 18:20 | PN ---
DATE: 09/23/16 SUBJECTIVE: The patient is sitting up in the bed with a much improved appetite. She has less dyspnea, less difficulty ambulating and did quite well on her ambulation study today with Respiratory Therapy. No nausea and vomiting. She states that her breathing is better today. Of note is that her diabetes is still persistent requiring sliding scale and now supplementation with Levemir insulin and the starting of oral therapy. OBJECTIVE: Afebrile, pulse 64, blood pressure 136/57, pulse oximetry 99% on room air. LUNGS: Have some diminished breath sounds bilaterally. HEART: Tones somewhat distant yet regular. ABDOMEN: Soft with no bowel movements today but she did have one yesterday. LABORATORY: White count is 14,200, hemoglobin 9.3. Chemistries show potassium is up to 5.4 with the patient being on both oral and parenteral potassium in the IV which was stopped. BUN of 35, creatinine is down to 0.96 while glucose is elevated at 319 fasting with hemoglobin A1c elevated at 9.4. Blood cultures are still negative. ASSESSMENT: 1. Chronic obstructive pulmonary disease with an acute exacerbation requiring pulmonary hygiene, corticosteroid administration and antibiotics to assist with the significant dyspnea. 2. Right sided chest wall pain showing some improvement, probable pleurisy in etiology. 3. Chronic anemia of normocytic hypochromic presentation. 4. Significant leukocytosis showing some steady improvement. 5. Significant hyperglycemia with an acute exacerbation of diabetes previously noted and currently on no treatment, and requiring sliding scale Levemir usp insulin as well as the addition of an oral antihyperglycemic to assist with ongoing control. 6. History of gastroesophageal reflux disease. 7. History of diverticulosis. 8. History of hypertension. 9. History of chronic congestive heart failure of undetermined etiology with last echocardiogram in January of 2013 with an ejection fraction of 65%. 10. Elevated potassium levels secondary to supplementation with Kayexalate initiated and holding of potassium dosing. 11. Hypomagnesemia receiving supplementation. 12. Chronic renal insufficiency. 13. History of seizure disorder. 14. History of degenerative joint disease of the knees as well as the lumbar spine with pain and significant scoliosis. 15. History of osteoporosis. 16. History of depression. 17. History of restless leg syndrome. 18. Chronic constipation because of chronic analgesics. PLAN: Dr. Bonilla was unable to perform specific injections to assist with chronic pain relief in her back and will be rescheduled with him calling her home tomorrow after her discharge if she is improved. Otherwise they will keep in touch with her until they can reschedule an appointment. Because of her elevated glucose, her corticosteroids have continued to be decreased. The patient seems to be moving air a little better than on admission and will continue with ongoing therapy interventions. Her IVs are changed from normal saline with potassium to normal saline to continue until her sugars are more normal. She was given Levemir 15 mg now today with continued sliding scale with reevaluation tomorrow whether the Glipizide 5 mg as added is enough to begin to assist with sugar control. She no doubt will probably need to go home on Levemir as well as an occasional sliding scale insulin administration. Align is added because of the antibiotic use. Will encourage a local DME to provide a small more portable oxygen delivery system for her home use. Continue with ambulation study in the morning to evaluate if any improvement in her lung functions are noted. Recheck potassium in the morning and close followup of the sugar necessary. #[id number] [facility]
[2016-09-23] MEDS: MONTELUKAST SODIUM 10 MG TAB PO SCH (20:35)
[2016-09-23] MEDS: MIRTAZAPINE 15 MG TAB PO SCH (20:35)
[2016-09-24] MEDS: PANTOPRAZOLE SODIUM IV 40 MG VIAL IV SCH (06:21)
[2016-09-24] MEDS ORDERED: glipiZIDE 5 MG TAB ONE (07:02)
[2016-09-24] MEDS: INSULIN LISPRO 100 UNITS/ML PEN SUBCU SCH ×2 (07:15→11:28)
[2016-09-24] MEDS: glipiZIDE EXTENDED REL (XL) 5 MG TAB PO SCH (07:36)
[2016-09-24] MEDS: IPRATROPIUM/ALBUTEROL 3 ML VIAL NEB SCH (08:35)
[2016-09-24] MEDS: FLUTICASONE/SALMETEROL 250/50 14 PUFF/17 GM INH INH SCH (08:35)
[2016-09-24] MEDS: predniSONE 10 MG TAB PO SCH (08:38)
[2016-09-24] MEDS: ESCITALOPRAM 10 MG TAB PO SCH (08:38)
[2016-09-24] MEDS: LISINOPRIL 5 MG TAB PO SCH (08:38)
[2016-09-24] MEDS: FUROSEMIDE 40 MG TAB PO SCH (08:39)
[2016-09-24] MEDS: BIFIDOBACTERIUM INFANTIS 4 MG CAP PO SCH (08:44)
[2016-09-24] MEDS ORDERED: SODIUM CHLORIDE 0.9% (FLUSH) 10 ML SYG IV SCH (09:00)
--- NOTE | 2016-09-24 09:21 | RAD ---
Clinical History : COPD , MAIN Exam : Portable AP view of the chest 09/24/2016 7:00 AM [facility] Comparisons : PA and lateral views of the chest September 22, 2016 Findings : There is mild diffuse peribronchial thickening throughout the lungs bilaterally.There is no focal consolidation or pleural effusion.. The heart is normal in size. The mediastinal contours are distorted by patient rotation to the right and otherwise grossly normal. There is a stable large hiatal hernia. The thoracic spine is age appropriate. The shoulders are unremarkable. Limited evaluation of the upper abdomen demonstrates no gross abnormalities. Impression: 1. Increasing mild peribronchial thickening without focal consolidation, likely representing pulmonary edema.2. Stable large hiatal hernia. Electronically signed by: Danisha August MD 09/24/2016 6:40 AM [facility]
[2016-09-24 10:21] VITALS: TEMP 97.4; O2SAT 96
[2016-09-24] MEDS: cefTRIAXone SODIUM 1 GM in SODIUM CHL 0.9% 50ML MIN-BAG+ 50 ML IVPB SCH (11:41)
[2016-09-24] MEDS: AZITHROMYCIN IV 500 MG in SODIUM CHLORIDE 0.9% 250ML 250 ML IVPB SCH (14:11)
[2016-09-24 14:27] VITALS: BP 145/74
--- NOTE | 2016-09-24 22:08 | DS ---
SUPERVISING PHYSICIAN: Scott Solorzano M.D. DISCHARGE DIAGNOSIS: 1. Chronic obstructive pulmonary disease with an acute exacerbation requiring aggressive pulmonary hygiene, corticosteroid administration and antibiotics to assist with the significant dyspnea that showed good clinical improvement at time of discharge 2. Right sided chest wall pain likely pleurisy in etiology with pain being reproducible with a cough and deep inspiration. 3. Chronic anemia of normocytic hypochromic presentation. 4. Leukocytosis likely secondary to number 1 and corticosteroid administration showing improvement. 5. Hyperglycemia with an acute exacerbation of diabetes previously noted and currently on treatment requiring sliding scale initially through admission and Levemir with the addition of oral antihyperglycemic to assist with ongoing control. 6. History of gastroesophageal reflux disease. 7. History of diverticulosis. 8. History of hypertension. 9. History of chronic congestive heart failure of undetermined etiology with last echocardiogram in January of 2013 with an ejection fraction of 65%. 10. Elevated potassium levels secondary to supplementation with Kayexalate initiated and holding of potassium dosing with the patient showing good resolution. 11. Hypomagnesemia improved with supplementation. 12. Chronic renal insufficiency. 13. History of seizure disorder. 14. History of degenerative joint disease of the knees as well as the lumbar spine with pain and significant scoliosis. 15. History of osteoporosis. 16. History of depression. 17. History of restless leg syndrome. 18. Chronic constipation because of chronic analgesics. HISTORY OF PRESENT ILLNESS: Ms. Ramirez is a 76 year-old female who presented to the Emergency Department secondary to worsening shortness of breath. She had noted a significant history of chronic obstructive pulmonary disease with asthma and has had multiple admissions in the past for exacerbations. On admission, she denied a fever but thought that she had a worsening cough with some noted chest discomfort with coughing spells on the right side. She noted that her symptoms had been worsening over the last 7 days prior to admission and that she got very short of breath with any exertional effort. She does wear oxygen at home chronically and has been utilizing her breathing treatments but only as prescribed and not using any additional treatments for worsening of her wheezing or shortness of breath. Laboratory studies on date of admission in the Emergency Department showed the patient to have a leukocytosis of 16,000 with a left shift. Radiographic studies included abdominal x-ray that showed nonspecific bowel gas pattern with some possible constipation and chest x-ray indicated per radiology interpretation a moderate sized hiatal hernia, no significant findings. The lungs were essentially clear with no pleural effusions or pneumothoraxes. Initially on her presentation to the Emergency Department, she was found to be significantly short of breath with respirations 20 to 24, saturation 93% on nasal cannula at rest and was afebrile. She was given a DuoNeb continuous treatments for an hour to lessen her exacerbation of asthma and it was noted that she had very little air movement on admission. She was given steroids and some Singulair. It was noted that after the breathing treatment, the patient was actually moving some air but her lungs sounded much worse than they did on presentation but her work of breathing had decreased. With the symptoms that she presented with, significantly dyspneic with some mild respiratory distress and having minimally responded to a continuous DuoNeb treatments, the patient was admitted to the Medical/Surgical floor for exacerbation of chronic obstructive pulmonary disease. She was started on antibiotics and steroids prior to admission. She was admitted in stable condition. LABORATORY: White count on admission was 16,000, at discharge it decreased to 12.3. Hemoglobin and history at time of discharge were 9.1 and 28.2 with platelet count 116,000. Differential did show a left shift through the entire hospitalization stay. Coagulation studies showed a PT of 10.7, PTT 23.7. Chemistries on admission, electrolytes showed potassium 4.1. Potassium did increase to 5.1 to a maximum of 5.4 and at time of discharge was down to 3.4. BUN at discharge was 31, creatinine 0.97. Glucoses had been fairly labile ranging from 61 to greater than 400. Urine showed 500 of glucose on the dipstick with microscopic being within normal limits. MICROBIOLOGY: MRSA surveillance culture showed no growth at 24 hours. Blood cultures no growth at 48 hours. Influenza A and B were negative. RADIOLOGY: Abdominal x-ray in the Emergency Department prior to admission showed nonspecific bowel gas pattern and some possible constipation. She had a chest x-ray initially and on admission per radiology interpretation there were no acute findings. Repeat chest x-ray on 09/22/16 showed a large hiatal hernia and a right perihilar/infrahilar linear opacity likely subsegmental atelectasis or scar but not significant change. Interstitial lung disease in the right upper lobe with a right lung scar was unchanged. No acute infiltrates. Final chest x-ray on date of discharge on 11/05 per radiology interpretation showed increasing mild peribronchial thickening without focal consolidations likely representing pulmonary edema and stable hiatal hernia. HOSPITAL COURSE: Ms. Ramirez is a 76 year-old female that was admitted to the hospital as noted above from the [facility]. [facility] for exacerbation of chronic obstructive pulmonary disease and asthma. She was started on breathing treatments, corticosteroids and antibiotics to include Azithromycin and Rocephin. She did well through the hospitalization. She actually had an ambulatory study prior to discharge that showed the patient satting 96% on 2 liters prior to ambulation with the distance of 214 ambulated showing 99% and 94 % after 3 minute ambulation requiring 1 minute of recovery time with the patient showing no distress or shortness of breath. Currently she does wear oxygen at home 14/03. The patient clinically improved and at discharge again was afebrile at 97.4, pulse 77, blood pressure 145/74, respirations 18. She was satting 96% on nasal cannula at 2 liters at rest. On date of discharge, she was felt clinically well enough to be discharged to continue with outpatient treatment plan. PLAN: The patient was discharged to have close clinical followup with her primary care provider, Dr. Montana. She was to call Dr. Montana's office on Tuesday after discharge to schedule a followup appointment in at least 7 to 10 days. She was instructed to resume a diet that included a diabetic diet, exercise was to increase as tolerated. She was encouraged to continue with pulmonary exercises with incentive spirometry and to monitor blood sugars closely. She was to resume all of her previous medications as instructed and to start new prescriptions on the date of discharge as directed. She was to take a probiotic of choice to help prevent any antibiotic-associated diarrhea and to wear her home O2 as instructed. She was encouraged to return to the hospital should she have failure to improve or any worsening of her symptoms. On discharge, she had new prescriptions to include: 1. Azithromycin 500 mg p.o., #3. 2. Ceftin 500 mg twice daily, #10. 3. Prednisone 20 mg tablets daily for 5 days. All other medications were resumed as previous to hospitalization. She was discharged. Condition at discharge was stable and improved, good. #[id number] [facility]
--- NOTE | 2016-10-17 23:51 | RAD ---
Clinical History : COPD , MAIN Exam : Portable AP view of the chest 09/24/2016 7:00 AM LEAD CASTER Comparisons : PA and lateral views of the chest September 22, 2016 Findings : There is mild diffuse peribronchial thickening throughout the lungs bilaterally.There is no focal consolidation or pleural effusion.. The heart is normal in size. The mediastinal contours are distorted by patient rotation to the right and otherwise grossly normal. There is a stable large hiatal hernia. The thoracic spine is age appropriate. The shoulders are unremarkable. Limited evaluation of the upper abdomen demonstrates no gross abnormalities. Impression: 1. Increasing mild peribronchial thickening without focal consolidation, likely representing pulmonary edema.2. Stable large hiatal hernia. Electronically signed by: Danisha August MD 09/24/2016 6:40 AM LEAD CASTER
== END 2016-09-24 15:30 | disposition home or self-care (01) | DRG 191 ==
LOC: ER 11:14 → MS 17:06 → OBSVTOIN 17:06
PROVIDERS: ADMIT Nurse Practitioner Family; ATTEND Nurse Practitioner Family
DX: J44.1 Chronic obstructive pulmonary disease with (acute) exacerbation (principal); I13.0 Hypertensive heart and chronic kidney disease with heart failure and stage 1 through stage 4 chronic kidney disease, or unspecified chronic kidney disease; R09.1 Pleurisy; E11.65 Type 2 diabetes mellitus with hyperglycemia; J44.0 Chronic obstructive pulmonary disease with (acute) lower respiratory infection; J20.9 Acute bronchitis, unspecified; K21.9 Gastro-esophageal reflux disease without esophagitis; D50.9 Iron deficiency anemia, unspecified; I50.9 Heart failure, unspecified; E83.42 Hypomagnesemia; E11.22 Type 2 diabetes mellitus with diabetic chronic kidney disease; N18.9 Chronic kidney disease, unspecified; E87.5 Hyperkalemia; G40.909 Epilepsy, unspecified, not intractable, without status epilepticus; M81.0 Age-related osteoporosis without current pathological fracture; F32.9 Major depressive disorder, single episode, unspecified; G25.81 Restless legs syndrome; M06.9 Rheumatoid arthritis, unspecified; M41.9 Scoliosis, unspecified; K59.03 Drug induced constipation; T39.95XA Adverse effect of unspecified nonopioid analgesic, antipyretic and antirheumatic, initial encounter; Z96.643 Presence of artificial hip joint, bilateral; Y92.9 Unspecified place or not applicable; Z99.81 Dependence on supplemental oxygen; Z96.652 Presence of left artificial knee joint; Z66 Do not resuscitate; Z79.1 Long term (current) use of non-steroidal anti-inflammatories (NSAID); Z79.52 Long term (current) use of systemic steroids; Z79.899 Other long term (current) drug therapy; Z88.1 Allergy status to other antibiotic agents; Z88.5 Allergy status to narcotic agent; Z88.0 Allergy status to penicillin; Z88.7 Allergy status to serum and vaccine

== ENCOUNTER 2016-10-09 17:10 | Inpatient (IN) | payer MEDICARE, MEDICAID ==
[2016-10-09] MEDS ORDERED: IPRATROPIUM/ALBUTEROL 3 ML VIAL NEB ONE ×2 (17:49→21:01)
--- NOTE | 2016-10-09 17:54 | ED.PDOC ---
History of Present Illness - General Chief Complaint: Respiratory Problem Stated Complaint: shortness of breath, cough Time Seen by Provider: 10/09/16 17:46 Source: patient, family Exam Limitations: no limitations - History of Present Illness Initial Comments: Ms. Cristian Ramirez 76 y/o female with long standing history of bronchial asthma brought by family with worsening sob for the last 6 weeks.Hospitalized 4 weeks ago for asthmatic attack. Timing/Duration: other - 6 weeks Severity: moderate Worsening Factors: other - weather Associated Symptoms: shortness of breath Allergies/Adverse Reactions: Allergies Amitriptyline Allergy (Intermediate, Verified 10/09/16 17:49) Ciprofloxacin [From Cipro] Allergy (Intermediate, Verified 10/09/16 17:49) Codeine Allergy (Intermediate, Verified 10/09/16 17:49) Enalapril [From Vasotec] Allergy (Intermediate, Verified 10/09/16 17:49) Iodine Allergy (Intermediate, Verified 10/09/16 17:49) Naloxone [From Talwin Nx] Allergy (Intermediate, Verified 10/09/16 17:49) Penicillin G Allergy (Intermediate, Verified 10/09/16 17:49) Pentazocine [From Talwin Nx] Allergy (Intermediate, Verified 10/09/16 17:49) Tetanus Toxoid Allergy (Intermediate, Verified 10/09/16 17:49) Home Medications: Ambulatory Orders Acetaminophen [Tylenol] 650 mg PO Q6H PRN 08/25/15 Atorvastatin Calcium [Lipitor] 20 mg PO BEDTIME 08/25/15 Clonazepam 0.5 mg PO BID PRN 08/25/15 Furosemide [Lasix] 40 mg PO DAILY 08/25/15 Lisinopril [Prinivil] 2.5 mg PO DAILY 08/25/15 Montelukast Sodium [Singulair] 10 mg PO BEDTIME 08/25/15 Potassium Chloride [Micro-K] 10 meq PO BIDFD 08/25/15 Escitalopram Oxalate [Lexapro] 20 mg PO DAILY 12/08/15 Meclizine HCl 25 mg PO DAILY 12/08/15 Mirtazapine [Remeron] 7.5 mg PO BEDTIME 12/08/15 Tramadol HCl [Ultram] 50 mg PO Q6HRS PRN #20 tab 12/08/15 Fluticasone/Salmeterol 250/50 [Advair 250/50 Diskus] 1 puff INH DAILY 05/19/16 Albuterol Sulfate Nebs [Proventil Nebs] 2.5 mg INH TID #100 vial 05/20/16 Omeprazole Magnesium [Prilosec Otc] 20 mg PO BID #60 tab 05/20/16 Azithromycin 500 mg PO DAILY #3 tab 09/24/16 Cefuroxime Axetil 500 mg PO BID #10 tab 09/24/16 predniSONE [Prednisone] 20 mg PO DAILY #5 tab 09/24/16 Benzonatate Perles [Tessalon Perles] 200 mg PO BID PRN #30 cap 10/09/16 Doxycycline Hyclate 100 mg PO BID #20 tab 10/09/16 Review of Systems - Review of Systems Constitutional: States: no symptoms reported EENTM: States: no symptoms reported Respiratory: States: see HPI, short of breath Cardiology: States: no symptoms reported Gastrointestinal/Abdominal: States: no symptoms reported Genitourinary: States: no symptoms reported Musculoskeletal: States: no symptoms reported Skin: States: no symptoms reported Neurological: States: no symptoms reported Endocrine: States: no symptoms reported Hematologic/Lymphatic: States: no symptoms reported Past Medical History (General) - Patient Medical History Hx Seizures: Yes Hx Stroke: No Hx Dementia: Yes Hx Asthma: Yes Hx of COPD: Yes Hx Cardiac Disorders: Yes Hx Congestive Heart Failure: Yes Hx Pacemaker: No Hx Hypertension: Yes Hx Thyroid Disease: No Hx Diabetes: Yes Hx Gastroesophageal Reflux: Yes Hx Cancer: No Hx of HIV: No Hx Hepatitis C: No Hx MRSA: Yes MRSA Source:: Blood Surgical History: other - knee,cardiac stent - Vaccination History Hx Tetanus, Diphtheria Vaccination: Yes Hx Influenza Vaccination: No Hx Pneumococcal Vaccination: Yes - 2012 (?) - Social History Hx Tobacco Use: Yes Hx Chewing Tobacco Use: No Hx Alcohol Use: No Hx Substance Use: No Hx Substance Use Treatment: No Hx Depression: No Hx Physical Abuse: No Hx Emotional Abuse: No - Female History Patient : No Family Medical History - Family History Mother Family History: Unknown Living Status: Hx Family Asthma: Yes Hx Cardiac Disease: Yes Hx Family Diabetes: Yes Physical Exam - Physical Exam General Appearance: Alert, Anxious, No apparent distress Eye Exam: bilateral normal Ears, Nose, Throat: hearing grossly normal, normal ENT inspection, normal pharynx Neck: non-tender, full range of motion, supple Respiratory: chest non-tender, no respiratory distress, decreased breath sounds , wheezing Cardiovascular/Chest: normal peripheral pulses, regular rate, rhythm, no edema Peripheral Pulses: radial,right: 2+, radial,left: 2+ Gastrointestinal/Abdominal: normal bowel sounds, non tender, soft, no organomegaly Back Exam: normal inspection, no CVA tenderness Extremity: normal range of motion, non-tender Neurologic: no motor/sensory deficits, alert, normal mood/affect, oriented x 3 Skin Exam: normal color, warm/dry Progress - Results/Orders Results/Orders: 10/09/16 18:03 Chest,1 View [RAD] Stat 10/09/16 18:04 IV Care:Saline Lock per Protoc QSHIFT 10/09/16 18:14 SVN/Updraft Therapy .ONCE 10/09/16 18:15 EKG STAT 10/10/16 09:00 [facility] Laboratory Results WBC 6.4 K/mm3 (4.8-10.8) 10/09/16 18:03 RBC 3.77 M/mm3 (4.20-5.40) L 10/09/16 18:03 Hgb 11.4 gm/dL (12.0-16.0) L 10/09/16 18:03 Hct 34.9 % (36.0-47.0) L 10/09/16 18:03 MCV 92.5 fl (81.0-99.0) 10/09/16 18:03 MCH 30.2 pg (27.0-31.0) 10/09/16 18:03 MCHC 32.8 g/dL (33.0-37.0) L 10/09/16 18:03 RDW 14.5 % (11.5-14.5) 10/09/16 18:03 Plt Count 203 K/mm3 (130-400) 10/09/16 18:03 MPV 8.3 fl (7.40-10.4) 10/09/16 18:03 Absolute Neuts (auto) 4.40 K/uL (1.8-6.8) 10/09/16 18:03 Absolute Lymphs (auto) 1.00 K/uL (1.0-3.4) 10/09/16 18:03 Absolute Monos (auto) 0.80 K/uL (0.2-0.8) 10/09/16 18:03 Absolute Eos (auto) 0.10 K/uL (0.0-0.4) 10/09/16 18:03 Absolute Basos (auto) 0.00 K/uL (0.0-0.1) 10/09/16 18:03 Neutrophils % 68.9 % (42.0-78.0) 10/09/16 18:03 Lymphocytes % 16.1 % (20.0-50.0) L 10/09/16 18:03 Monocytes % 12.3 % (2.0-9.0) H 10/09/16 18:03 Eosinophils % 2.0 % (1.0-5.0) 10/09/16 18:03 Basophils % 0.7 % (0.0-2.0) 10/09/16 18:03 Sodium 136 mmol/L (135-145) 10/09/16 18:03 Potassium 4.4 mmol/L (3.6-5.0) 10/09/16 18:03 Chloride 99 mmol/L (101-111) L 10/09/16 18:03 Carbon Dioxide 27 mmol/L (21-31) 10/09/16 18:03 Anion Gap 14.4 (12-18) 10/09/16 18:03 BUN 28 mg/dL (7-18) H 10/09/16 18:03 Creatinine 1.37 mg/dL (0.6-1.3) H 10/09/16 18:03 BUN/Creatinine Ratio 20.4 (10-20) H 10/09/16 18:03 Random Glucose 196 mg/dL (70-105) H 10/09/16 18:03 Serum Osmolality 282.8 mOsm/L (275-295) 10/09/16 18:03 Calcium 8.3 mg/dL (8.4-10.2) L 10/09/16 18:03 Total Bilirubin 1.2 mg/dL (0.2-1.0) H 10/09/16 18:03 AST 22 IU/L (10-42) 10/09/16 18:03 ALT 17 IU/L (10-60) 10/09/16 18:03 Alkaline Phosphatase 79 IU/L (42-121) 10/09/16 18:03 B-Natriuretic Peptide 29.5 pg/ml (0-100) 10/09/16 18:03 Serum Total Protein 7.8 gm/dL (6.4-8.2) 10/09/16 18:03 Albumin 3.5 g/dl (3.2-5.5) 10/09/16 18:03 Globulin 4.3 gm/dL (2.3-3.5) H 10/09/16 18:03 Albumin/Globulin Ratio 0.8 (1.1-1.9) L 10/09/16 18:03 - EKG/XRAY/CT XRAY: chest - no acute abnormality Departure - Departure Clinical Impression: COPD exacerbation Time of Disposition: 21:07 - D/W Maykel Lambert ANP-Hospitalist Disposition: Admit Patient Condition: Good Departure Forms: ED Discharge - Pt. Copy, Patient Portal Self Enrollment Referrals: Kai Montana MD [Primary Care Provider] - 1-2 Weeks Prescriptions: Doxycycline Hyclate 100 mg PO BID #20 tab Benzonatate Perles [Tessalon Perles] 200 mg PO BID PRN #30 cap PRN Reason: Cough Home Medications: Ambulatory Orders Acetaminophen [Tylenol] 650 mg PO Q6H PRN 08/25/15 Atorvastatin Calcium [Lipitor] 20 mg PO BEDTIME 08/25/15 Clonazepam 0.5 mg PO BID PRN 08/25/15 Furosemide [Lasix] 40 mg PO DAILY 08/25/15 Lisinopril [Prinivil] 2.5 mg PO DAILY 08/25/15 Montelukast Sodium [Singulair] 10 mg PO BEDTIME 08/25/15 Potassium Chloride [Micro-K] 10 meq PO BIDFD 08/25/15 Escitalopram Oxalate [Lexapro] 20 mg PO DAILY 12/08/15 Meclizine HCl 25 mg PO DAILY 12/08/15 Mirtazapine [Remeron] 7.5 mg PO BEDTIME 12/08/15 Tramadol HCl [Ultram] 50 mg PO Q6HRS PRN #20 tab 12/08/15 Fluticasone/Salmeterol 250/50 [Advair 250/50 Diskus] 1 puff INH DAILY 05/19/16 Albuterol Sulfate Nebs [Proventil Nebs] 2.5 mg INH TID #100 vial 05/20/16 Omeprazole Magnesium [Prilosec Otc] 20 mg PO BID #60 tab 05/20/16 Azithromycin 500 mg PO DAILY #3 tab 09/24/16 Cefuroxime Axetil 500 mg PO BID #10 tab 09/24/16 predniSONE [Prednisone] 20 mg PO DAILY #5 tab 09/24/16 Benzonatate Perles [Tessalon Perles] 200 mg PO BID PRN #30 cap 10/09/16 Doxycycline Hyclate 100 mg PO BID #20 tab 10/09/16 Additional Instructions: RETURN TO EMERGENCY ROOM NEEDED
[2016-10-09] MEDS ORDERED: methylPREDNISolone SODIUM SUC 125 MG/2 ML VIAL IV ONE (18:03)
[2016-10-09] MEDS ORDERED: cefTRIAXone SODIUM 1 GM VIAL IM ONE (19:28)
[2016-10-09] MEDS ORDERED: AZITHROMYCIN 250 MG TAB PO ONE (19:29)
--- NOTE | 2016-10-09 20:27 | RAD ---
EXAM DESCRIPTION: Chest,1 View CLINICAL HISTORY: 76 years Female sob COMPARISON: 09/24/2016. FINDINGS: The cardiomediastinal silhouette appears stable. Large hiatal hernia which was better visualized on the previous study. Changes of COPD. No consolidating infiltrates or pleural effusions. No pneumothorax. Scoliosis in the lower thoracic and lumbar spine convex right. Postsurgical changes are partially visualized in the lumbar spine. IMPRESSION: No acute abnormality is identified. Electronically signed by: Tk Cox MD 10/09/2016 7:10 PM [employer]
--- NOTE | 2016-10-09 22:15 | HP ---
SUPERVISING PHYSICIAN: Scott Solorzano MD CHIEF COMPLAINT: Shortness of breath, cough. HISTORY OF PRESENT ILLNESS: Ms. Ramirez is a 76 year-old female who has an extensive history of chronic obstructive pulmonary disease with asthma and has had multiple exacerbations and admissions in the past. Her last admission was 09/21/16. The patient notes that she had gone home from the hospital on previous admission and was doing well and was seen actually in the clinic by her primary care physician, Dr. Montana. Within the last few days she has been slowly developing worsening shortness of breath and required multiple breathing treatments and has severe dyspnea on exertion even with oxygen. She does wear oxygen at home 14/03 and has been wearing the oxygen as directed. In the Emergency Department today, initially the patient presented in mild respiratory distress and was given breathing treatments. Initial vital signs showed her to have respirations of 30, saturation 93% on nasal cannula at rest. Heart rate 114. She was given 2 albuterol treatments with minimal improvement and started on Solu-Medrol. After a short time in the Emergency Room, the patient was showing little improvement. Therefore, the patient will be placed in observation tonight for continued treatment and evaluation exacerbation of chronic obstructive pulmonary disease. She was given Rocephin and azithromycin prior to admission. She will be admitted to the medical/ surgical floor. Condition at time of admission was stable. There was an ABG completed as well indicating some mild hypoxemia even with oxygen showing a PA02 of 81, saturations were 99%, pH 7.3, PC02 was 42. PAST MEDICAL HISTORY: 1. Chronic obstructive pulmonary disease with history of asthma and reactive airways disease. 2. Diabetes mellitus, type 2, on no current throughout. . 3. Hypertension. 4. Degenerative joint disease. 5. History of osteoporosis. 6. 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 7. Rheumatoid arthritis. 8. Gastroesophageal reflux disease. 9. Chronic congestive heart failure with unknown etiology with last echocardiogram in 01/2013 with a notable ejection fraction of 65% with current admission BNP being within normal limits. 10. Depression. 11. History of iron deficiency anemia. 12. History of diverticulosis by colonoscopy [place] [address] Lai. 13. History of restless leg syndrome. PAST SURGICAL HISTORY: 1. Bilateral hip replacement. 2. Left knee replacement. 3. Hysterectomy. 4. Bladder suspension. 5. Breast reduction. 6. Hernia repair. 7. Back surgery. 8. Tonsils and adenoids. 9. Appendectomy. 10. Cholecystectomy. 11. Right cataract removal. HOME MEDICATIONS: 1. Lipitor 20 mg at bedtime. 2. Clonazepam 0.5 mg at bedtime p.r.n. 3. Lasix 40 mg daily. 4. Advair 250/50 Diskus one puff inhaled daily. 5. Meclizine 25 mg daily. 6. Lisinopril 2.5 mg daily. 7. Singulair 10 mg at bedtime. 8. Prilosec [id number] 20 mg twice a day. 9. Remeron 7.5 mg at bedtime. 10. Lexapro 20 mg daily. 11. Tyrone 5/325, one at bedtime. 12. Proventil nebs 2.5 mg 3 times a day. 13. Tylenol 650 mg every 6 hours as needed for pain. ALLERGIES: AMITRIPTYLINE, CIPROFLOXACIN, CODEINE, VASOTEC, IODINE, NALOXONE, PENICILLIN G, PENTAZOCINE, TETANUS TOXOID, MORPHINE. FAMILY HISTORY: Asthma, congestive heart failure, diabetes, coronary artery disease. SOCIAL HISTORY: The patient is . She lives at home with her 2 brothers. 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 She denies ever smoking, but has been around a significant amount of second hand smoke over her lifetime. She denies drinking any alcohol or any illicit drug use. REVIEW OF SYSTEMS: GENERAL: She denies any fever, chills or intentional weight loss. HEENT: Denies visual changes, decreased hearing or nasal congestion or sinus pressure. CARDIOVASCULAR: Denies any chest pain, palpitations or syncopal episodes. RESPIRATORY: As noted in history of present illness with shortness of breath on exertion as noted both in the Emergency Room and on admission with a worsening productive cough. GASTROINTESTINAL: Negative for any vomiting, nausea but she has had some diarrhea that [id number] today but does not have any issues with constipation or abdominal pains. GENITOURINARY: Denies dysuria, increased frequency or other urinary symptoms. EXTREMITIES: Does have periodic lower extremity edema that she takes Lasix for as needed. NEUROLOGICAL: Denies any significant headaches, focal weaknesses but reports that she has had some syncopal episodes in the distant past but none recently. PHYSICAL EXAMINATION: VITAL SIGNS: In the Emergency Department: Temperature 99.3, pulse 114, blood pressure 141/86, respirations 32, short-labored and use of accessory muscles. Saturation 93% on nasal cannula at rest. Admission to the surgical floor, pulse was 98, blood pressure 130/75, respirations 18, saturation 96% on nasal cannula at rest. Admission weight 72.3 kg. GENERAL: The patient upon admission to the medical/surgical floor, appears to be in mild respiratory distress. Not able to completely speak without pauses but she does appear comfortable. She denies any chest pains and is in need of a breathing treatment. HEENT: Tympanic membranes bilaterally are clear. Oropharynx is pink and moist without any lesions. There is no notable nasal congestion or drainage. NECK: No jugular venous distention noted. CHEST: Lungs are notable, diffuse wheezing throughout with inspiratory and expiratory wheezing with some mild rhonchi heard towards the posterior aspect bilaterally with significantly decreased breath sounds throughout. CARDIOVASCULAR: Regular rate and rhythm without any appreciable murmurs, rubs, or gallops. ABDOMEN: Soft, non-tender, positive bowel sounds. EXTREMITIES: No cyanosis, clubbing, or edema. NEUROLOGIC: She is alert and oriented x 3. Facial features are symmetrical. Extraocular movements are within normal limits. Cranial nerves II through XII are grossly intact. There is no notable focalizing or lateralizing neuromotor deficits. LABORATORY White count on admission 6.4, hemoglobin 11.4, hematocrit 34.9, platelet count 203,000, differential shows to be without a left shift. Blood gas analysis on 2 liter nasal cannula showed a pH of 7.39 with PC02 of 42, PO2 of 81, bicarb 24.6. Carboxyhemoglobin was 0.7. Chemistries show normal electrolytes with a potassium of 4.4, BUN 28, creatinine 1.37, glucose 196, calcium 8.3, total bilirubin 1.2. Liver functions showed to be within normal limits. BNP was 29. Sputum cultures pending. Influenza pending. Troponin, CPK pending, magnesium pending. Urinalysis pending. Influenza A and B pending by PCR. RADIOLOGY: Chest x-ray single view in the Emergency Department per radiology interpretation showed no acute abnormalities. ASSESSMENT: 1. Exacerbation of chronic obstructive pulmonary disease with a history of reactive airway disease having recently been in the hospital for an exacerbation of her chronic obstructive pulmonary disease presenting on admission with mild hypoxemia as demonstrated by a low SP02 on blood gas analysis and mild respiratory insufficiency with respirations in the 30s, saturation 92% on 2 liters nasal cannula oxygen at rest. 2. Normocytic normochromic anemia with patient having a past history of iron-deficiency anemia. 3. Gastroesophageal reflux disease. 4. Mild hypoxemia and chronic obstructive pulmonary disease with exacerbation as noted on ABG with SP02 of 81. 5. Mild dehydration. 6. History of diverticulosis. 7. History of hypertension. 8. Type 2 diabetes mellitus by history currently on no oral or insulin regimen. 9. Chronic congestive heart failure with undetermined etiology with last echocardiogram in January 2013 with an ejection fraction of 66% with current BNP being within normal limits upon admission. No signs for exacerbation. 10. Mild renal insufficiency likely secondary to some mild dehydration. 12. History of seizure disorders with no recent mention of any seizures. 13. 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 14. History of osteoporosis. 15. History of depression. 16. History of restless leg syndrome with the patient being on Remeron, Klonopin. 17. Chronic constipation. PLAN: The patient will be placed in observation with concerns for worsening respiratory effort and with acute exacerbation of her chronic obstructive pulmonary disease. The patient, given that she has just been on antibiotics within the last month and recent exacerbation certainly is at risk for further complications secondary to early pneumonia. Therefore, she was started on antibiotics once again in the Emergency Department initially with Rocephin and azithromycin. We will reassess in the morning with repeat chest x-ray, 2-view, to further evaluate for possible pneumonia. Currently, the patient's white count is normal. She does not have a left shift. She will be provided pulmonary hygiene to include q.i.d. breathing treatments and albuterol treatments as needed along with incentive spirometry and chest physiotherapy. Sputum culture will be collected and will await final culture results. We will replace magnesium if needed once magnesium level is available. She will be provided BiPAP for respiratory assistance if needed with initial settings of 8/ 3 and to titrate to patient's clinical condition and comfort. Will anticipate length of stay to be 1 to 2 days. She will be started on Solu-Medrol. Once again, she was loaded initially with 125 mg in the Emergency Room, this will be continued with 60 mg every 6 hours x3 with a taper anticipation of discharging home. I plan to repeat CBC and BMP in the morning as well as try to get a 2- view chest x-ray as noted above. Once the patient is clinical stable, she will need close followup as this is her second exacerbation within the last 30 days, with her primary care physician, Dr. Montana. Until then, we will continue to monitor the patient closely and treat appropriately. #[id number] [facility]
[2016-10-09] MEDS ORDERED: ALBUTEROL SULFATE 2.5 MG/3 ML VIAL NEB PRN (23:06)
[2016-10-09] MEDS ORDERED: IBUPROFEN 400 MG TAB PO PRN (23:06)
[2016-10-09] MEDS ORDERED: ACETAMINOPHEN 325 MG TAB PO PRN (23:06)
--- NOTE | 2016-10-09 23:18 | PCM.CORE ---
Physician DVT/VTE - Nurse DVT Assessment & Total Each Risk Factor Represents 3 Points: Age over 75 years, Medical PT with Hx of PA, CHF, Severe infection/sepsis Each Risk Factor Represents 1 Point: Medical PT at Bed Rest Each Risk Factor is 1 Point: Varicose Veins/Edema Legs, Obesity (BMI >25) DVT Assessment Score: 9 - 5 or more Very High Risk Treatments: Early Ambulation *, Sequential Compression Device Pharmacological: Enoxaparin 40mg SQ Daily
[2016-10-09] MEDS ORDERED: IPRATROPIUM/ALBUTEROL 3 ML VIAL INH SCH (23:30)
[2016-10-09] MEDS ORDERED: ENOXAPARIN SODIUM 40 MG/0.4 ML SYG SUBCU SCH (23:30)
[2016-10-09] MEDS: IV SET AND CAP CHANGE INJ INJ SCH (23:39)
[2016-10-09] MEDS: methylPREDNISolone SODIUM SUC 125 MG/2 ML VIAL IV SCH (23:40)
[2016-10-09] MEDS: SODIUM CHLORIDE 0.9% (FLUSH) 10 ML SYG IV SCH (23:40)
[2016-10-09] MEDS: SODIUM CHLORIDE 0.9% (FLUSH) 10 ML SYG IV PRN (23:40)
[2016-10-10] MEDS ORDERED: MAGNESIUM SULFATE PREMIX 2GM 2 GM in PREMIX BAG 1 BAG IVPB ONE (00:10)
[2016-10-10] MEDS ORDERED: MAGNESIUM SULFATE PREMIX 2GM 50 ML IVPB ONE (00:16)
[2016-10-10] MEDS: SODIUM CHLORIDE 0.9% (FLUSH) 10 ML SYG IV PRN ×3 (00:19→22:43)
[2016-10-10] MEDS: KCL 20 MEQ/NS 1,000 ML IVS PRN ×2 (00:20→20:08)
[2016-10-10] MEDS ORDERED: PANTOPRAZOLE SODIUM TAB 40 MG PO ONE (05:32)
[2016-10-10] MEDS ORDERED: SODIUM CHLORIDE 0.9% 10 ML VIAL ONE (05:35)
[2016-10-10] MEDS: methylPREDNISolone SODIUM SUC 125 MG/2 ML VIAL IV SCH ×4 (05:44→22:45)
[2016-10-10] MEDS: PANTOPRAZOLE SODIUM IV 40 MG VIAL IV SCH (06:00)
[2016-10-10] MEDS ORDERED: IPRATROPIUM/ALBUTEROL 3 ML VIAL NEB SCH (08:00)
[2016-10-10] MEDS: SODIUM CHLORIDE 0.9% (FLUSH) 10 ML SYG IV SCH ×2 (08:47→22:25)
[2016-10-10] MEDS ORDERED: GLUCAGON INJ 1 MG VIAL SUBCU PRN (09:38)
[2016-10-10] MEDS ORDERED: DEXTROSE 50% 25 GM/50 ML SYG IV PRN (09:38)
[2016-10-10] MEDS: LEVALBUTEROL NEBS 1.25 MG/3 ML VIAL NEB SCH ×3 (12:00→19:50)
[2016-10-10] MEDS: INSULIN LISPRO 100 UNITS/ML PEN SUBCU SCH ×3 (12:11→21:32)
[2016-10-10] MEDS ORDERED: INSULIN LISPRO 100 UNITS/ML PEN SUBCU ONE ×2 (17:04→21:18)
[2016-10-10] MEDS ORDERED: INSULIN DETEMIR 100 UNITS/ML PEN SUBCU ONE (17:05)
[2016-10-10] MEDS ORDERED: SODIUM CHLORIDE 0.9% 250ML 250 ML ONE (21:00)
[2016-10-10] MEDS ORDERED: SODIUM CHL 0.9% 50ML MIN-BAG+ 50 ML IVPB ONE (21:00)
[2016-10-10] MEDS ORDERED: cefTRIAXone SODIUM 1 GM VIAL ONE (21:01)
[2016-10-10] MEDS ORDERED: AZITHROMYCIN IV 500 MG VIAL IVPB ONE (21:02)
[2016-10-10] MEDS: MONTELUKAST SODIUM 10 MG TAB PO SCH (21:26)
[2016-10-10] MEDS: HYDROcodone 5MG/APAP 325MG 1 EA TAB PO SCH (21:26)
[2016-10-10] MEDS: ATORVASTATIN 20 MG TAB PO SCH (21:27)
[2016-10-10] MEDS: cefTRIAXone SODIUM 1 GM in SODIUM CHL 0.9% 50ML MIN-BAG+ 50 ML IVPB SCH (21:27)
[2016-10-10] MEDS: ENOXAPARIN SODIUM 40 MG/0.4 ML SYG SUBCU SCH (21:30)
[2016-10-10] MEDS: INSULIN DETEMIR 100 UNITS/ML PEN SUBCU SCH (21:34)
--- NOTE | 2016-10-10 21:48 | PN ---
DATE: 10/10/16 SUPERVISING PHYSICIAN: Scott Solorzano M.D. SUBJECTIVE: The patient feels like she is doing much better this morning. On observation, she appears to be less distressed. She is able to talk in full sentences at this point. She does remain afebrile. The patient reports that Albuterol breathings, although do work well, are giving her undesirable side effects with number 1 being a headaches, therefore we discussed switching her to Xopenex with p.r.n. Albuterol. OBJECTIVE: VITAL SIGNS: Temperature 97.1, blood pressure 148/68, respirations 20, O2 sat 95% on nasal cannula at rest. I's and O's have not been recorded as of yet. Weight 62.1 kg. GENERAL: The patient appears much less distressed this morning. She is very conversive without having to stop to catch her breath. She is alert. CHEST: Lungs are slightly better in regards to aeration throughout but she continues with inspiratory and expiratory wheezing, but not as prominent as previous days. ABDOMEN: Soft, non-tender. Positive bowel sounds. EXTREMITIES: No clubbing, cyanosis or edema. NEUROLOGIC: She is alert and oriented times three. LABORATORY: White count 2.8 today with hemoglobin 9.2 and hematocrit 20.1, platelet count 173,000. Differential does show a mild left shift now. Chemistries show normal electrolytes with potassium 4.9, BUN 30, creatinine 1.27 , calcium 7.8, magnesium 2.5. MICROBIOLOGY: Sputum culture is pending. RADIOLOGY: Chest x-ray per radiology interpretation today shows no acute pleural parenchymal process is seen. There is also again note of a large hiatal hernia with generalized osteopenia of the bones of the thoracic spine with age-indeterminate compressive deformities likely old with at least 2 contiguous lower thoracic vertebrae. ASSESSMENT: 1. Exacerbation of chronic obstructive pulmonary disease with a history of reactive airway disease having recently been in the hospital for an exacerbation of her chronic obstructive pulmonary disease presenting on admission with mild hypoxemia as demonstrated by a low SPO2 on blood gas analysis and mild respiratory insufficiency with respirations in the 30s, saturation 92% on 2 liters nasal cannula at rest. 2. Normocytic normochromic anemia with the patient having a history of iron deficiency anemia. 3. Neutropenia, unknown etiology, possibly secondary to underlying exacerbation of chronic obstructive pulmonary disease. Continue to closely monitor. 4. Gastroesophageal reflux disease. The patient is currently on Protonix IV as she was started on corticosteroids on admission. 5. Hyperglycemia with a history of type 2 diabetes without any mention of previous medications showing elevation in blood sugar secondary to corticosteroid administration requiring ongoing monitoring and adjustment of both sliding scale and Levemir for long-acting basal. 6. Mild hypoxemia and chronic obstructive pulmonary disease with exacerbation as noted on ABG initially with pO2 of 81. 7. Mild dehydration showing improvement after IV therapy. 8. History of hypertension. 9. Type 2 diabetes mellitus by history and again currently requiring adjustment of regimen of insulin for corticosteroids. 10. Chronic congestive heart failure with undetermined etiology with last echocardiogram being in January 2013 with ejection fraction of 66% with a current BNP on admission to show within normal limits with no signs of exacerbation. 11. Mild renal insufficiency showing improvement felt to be likely secondary to mild dehydration. 12. History of seizure disorder with no mention of any seizures. 13. Degenerative joint disease of primarily the knees and lumbar spine with evidence of old thoracic compression deformities with the patient being asymptomatic. 14. depression. 15. History of diverticulosis as diagnosed on colonoscopy [place] [address] Lai. 16. History of depression. 17. History of osteoporosis. 18. History of restless leg syndrome with the patient being on Remeron and Klonopin, and [place] at bedtime. 19. Chronic constipation. PLAN: Will continue to follow the patient closely. Given that her white count had dropped today, will go ahead and start her on antibiotic coverage for concerns for possible superinfection as she has been on Prednisone in the past. She does have an allergy to Ciprofloxacin, therefore we will start her on some Rocephin and Azithromycin and monitor closely with concerns for possible complications such as Clostridium Difficile. Will continue with aggressive pulmonary hygiene and start her on a sliding scale today as she is showing some increase in her blood sugar secondary to the corticosteroid administration and also consider adding Levemir for basal coverage. Will go ahead and check a CBC and BMP in the morning, and again monitor closely. At this point, will not repeat a chest x-ray as it has shown to be stable. Anticipate discharge in the next 2 to 3 days for close clinical followup with Dr. Montana, her primary care physician. Until then, will continue to monitor the patient closely and treat appropriately. #[id number] [facility]
[2016-10-10] MEDS: AZITHROMYCIN IV 500 MG in SODIUM CHLORIDE 0.9% 250ML 250 ML IVPB SCH (22:44)
[2016-10-11] MEDS: KCL 20 MEQ/NS 1,000 ML IVS PRN (01:01)
[2016-10-11] MEDS: SODIUM CHLORIDE 0.9% (FLUSH) 10 ML SYG IV PRN ×5 (05:49→23:38)
[2016-10-11] MEDS: methylPREDNISolone SODIUM SUC 125 MG/2 ML VIAL IV SCH ×4 (05:51→23:01)
[2016-10-11] MEDS: PANTOPRAZOLE SODIUM IV 40 MG VIAL IV SCH (06:37)
--- NOTE | 2016-10-11 07:21 | RAD ---
EXAM DESCRIPTION: XR CHEST 1 VIEW CLINICAL HISTORY: COPD COMPARISON: 10/10/2016 TECHNIQUE: Single-view chest. FINDINGS: Heart size normal. Large hiatal hernia unchanged. Hyperinflation consistent with COPD. No edema, acute infiltrate or large effusion IMPRESSION: COPD. No acute infiltrate Electronically signed by: Jarod Veloz MD 10/11/2016 07:20
[2016-10-11] MEDS: INSULIN LISPRO 100 UNITS/ML PEN SUBCU SCH ×5 (08:14→21:20)
[2016-10-11] MEDS: LEVALBUTEROL NEBS 1.25 MG/3 ML VIAL NEB SCH ×4 (08:20→20:17)
[2016-10-11] MEDS: FLUTICASONE/SALMETEROL 250/50 14 PUFF/17 GM INH INH SCH (08:24)
[2016-10-11] MEDS: FUROSEMIDE 40 MG TAB PO SCH (09:45)
[2016-10-11] MEDS: MECLIZINE HCL 12.5 MG TAB PO SCH (09:45)
[2016-10-11] MEDS ORDERED: INSULIN LISPRO 100 UNITS/ML PEN SUBCU ONE (12:12)
[2016-10-11] MEDS: INSULIN DETEMIR 100 UNITS/ML PEN SUBCU SCH ×2 (14:04→21:20)
[2016-10-11] MEDS ORDERED: FUROSEMIDE INJ 20 MG/2 ML VIAL IV ONE (15:26)
[2016-10-11] MEDS ORDERED: FUROSEMIDE INJ 20 MG/2 ML VIAL ONE (16:28)
[2016-10-11] MEDS: IPRATROPIUM BROMIDE NEBS 0.5 MG/2.5 ML VIAL NEB PRN ×2 (17:49→20:17)
[2016-10-11] MEDS ORDERED: cefTRIAXone SODIUM 1 GM VIAL ONE (19:18)
[2016-10-11] MEDS ORDERED: SODIUM CHL 0.9% 50ML MIN-BAG+ 50 ML IVPB ONE (19:18)
[2016-10-11] MEDS: cefTRIAXone SODIUM 1 GM in SODIUM CHL 0.9% 50ML MIN-BAG+ 50 ML IVPB SCH (19:37)
[2016-10-11] MEDS: HYDROcodone 5MG/APAP 325MG 1 EA TAB PO SCH (19:38)
[2016-10-11] MEDS: ATORVASTATIN 20 MG TAB PO SCH (19:39)
[2016-10-11] MEDS: MONTELUKAST SODIUM 10 MG TAB PO SCH (19:40)
--- NOTE | 2016-10-11 20:44 | PN ---
DATE: 10/11/16 SUPERVISING PHYSICIAN: Jarod Tapia M.D. SUBJECTIVE: The patient reports she is not feeling quite as well as she was the previous mornings. She has had some increase in shortness of breath requiring a little more breathing treatments in frequency. She does remain afebrile. OBJECTIVE: VITAL SIGNS: T max 98.4, pulse 90, blood pressure 150/75, respirations 20, O2 sat showing 93% on nasal cannula at rest. I's and O's are not measured due to the patient being incontinent at times. GENERAL: The patient today is a little bit more winded and again is back to being unable to fully speak in full sentences at times, and does have some wet-sounding cough. CHEST: Lungs are notably decreased today compared to previous with some slight rhonchi heard to the upper apices with just very mild inspiratory and expiratory wheezing that continues. ABDOMEN: Soft, non-tender. Positive bowel sounds. EXTREMITIES: No clubbing, cyanosis or edema. NEUROLOGIC: She is alert and oriented times three. LABORATORY: Did increase on the white count today from 2.8 to 10.8 with hemoglobin being 9, hematocrit being 27.3 with is decreased from admission of 11 and 34. She does show a left shift today. Chemistries show normal electrolytes with potassium 4.6, BUN 38, creatinine 1.3. Glucoses remain elevated since started on corticosteroids anywhere from 217 up to a maximum last night of 429. MICROBIOLOGY: Sputum cultures remain pending. RADIOLOGY: Single view chest x-ray this morning shows no acute infiltrative processes. No edema or large effusion with chronic obstructive pulmonary disease appearance per radiology interpretation. ASSESSMENT: 1. Acute exacerbation of chronic obstructive pulmonary disease having a history of reactive airway disease and with being hospitalized for a similar acute exacerbation of COPD presenting on admission this time with mild hypoxemia as demonstrated by SpO2 on blood gas analysis and mild respiratory insufficiency with respirations in the 30s. Saturation on 2 liters was 92% at rest. 2. Normocytic normochromic anemia with the patient having a history of iron deficiency anemia. 3. Neutropenia, unknown etiology, possibly secondary to underlying exacerbation of her chronic obstructive pulmonary disease, but shows improvement after starting on steroids. 4. Gastroesophageal reflux disease currently on Protonix IV for corticosteroid administration protection. 5. Hyperglycemia with a history of type 2 diabetes without any mention of previous medications now showing elevation of blood sugars secondary to corticosteroid administration requiring ongoing monitoring and adjustment of both sliding scale and Levemir for long acting basal control. 6. Mild hypoxemia and chronic obstructive pulmonary disease with exacerbation as noted and ABG initially with an pO2 of 81. 7. Mild dehydration, improved after IV therapy. 8. History of hypertension. 9. Type 2 diabetes mellitus by history with no history of medication either insulin or oral, now requiring an initiation of insulin regimen secondary to corticosteroid administration. 10. Chronic congestive heart failure with undetermined etiology likely cor pulmonale with last echocardiogram being in 05/2013 showing ejection fraction of 66 % with a current BNP on admission that was shown to be within normal limits and with no signs of exacerbation initially now with concerns with mild exacerbation secondary to possibly excessive IV fluid and the patient showing again some mild respiratory insufficiency. 11. Mild renal insufficiency showing improvement felt to be likely secondary to mild dehydration. 12. History of seizure disorder with no mention of any seizures recently. 13. Degenerative joint disease primarily of the knees and lumbar spine with evidence of thoracic compression fractures with the patient being asymptomatic. 14. Depression and anxiety. 15. History of diverticulosis diagnosed on colonoscopy [place] [address] Lai. 16. History of osteoporosis. 17. History of restless leg syndrome with the patient being on Remeron and Klonopin, and [place] at bedtime. 18. Chronic constipation. PLAN: Given the patient had a mild setback today, the patient will be changed from Observation to inpatient status. I will go ahead and give her a low dose of Lasix IV to see if possibly she has some mild fluid overload, and continue with prednisone. She was started on Rocephin and Azithromycin with concerns for superinfection secondary to neutropenia. This will be continued with close monitoring for complications such as Clostridium Difficile. Will continue with aggressive pulmonary hygiene including CPT and utilize sliding scale along with additional coverage a.c. and Levemir to help control blood sugars better. Will plan to repeat a CBC and BMP in the morning as well as a chest x-ray. Anticipate discharge hopefully within the next 2 days pending clinical resolution of symptoms at which time she will need close followup in the outpatient setting with her primary care physician, Dr. Monatna. Until then, will continue to monitor the patient closely and treat appropriately. #[id number] [facility]
[2016-10-11] MEDS: SODIUM CHLORIDE 0.9% (FLUSH) 10 ML SYG IV SCH (21:19)
[2016-10-11] MEDS: ENOXAPARIN SODIUM 40 MG/0.4 ML SYG SUBCU SCH (21:20)
[2016-10-11] MEDS ORDERED: SODIUM CHLORIDE 0.9% 250ML 250 ML ONE (22:05)
[2016-10-11] MEDS ORDERED: AZITHROMYCIN IV 500 MG VIAL IVPB ONE (22:06)
[2016-10-11] MEDS: SODIUM CHLORIDE 0.9% 10 ML VIAL IV PRN (22:15)
[2016-10-11] MEDS: AZITHROMYCIN IV 500 MG in SODIUM CHLORIDE 0.9% 250ML 250 ML IVPB SCH (22:16)
[2016-10-12] MEDS ORDERED: ALUM & MAG HYDROX-SIMETHICONE 30 ML UD PO PRN (01:05)
[2016-10-12] MEDS: TEMAZEPAM 15 MG CAP PO PRN (01:11)
[2016-10-12] MEDS: SODIUM CHLORIDE 0.9% 10 ML VIAL IV PRN (05:59)
[2016-10-12] MEDS: SODIUM CHLORIDE 0.9% (FLUSH) 10 ML SYG IV PRN ×2 (05:59→21:36)
[2016-10-12] MEDS: methylPREDNISolone SODIUM SUC 125 MG/2 ML VIAL IV SCH ×2 (06:00→12:01)
[2016-10-12] MEDS: PANTOPRAZOLE SODIUM IV 40 MG VIAL IV SCH (06:04)
--- NOTE | 2016-10-12 07:27 | RAD ---
EXAM DESCRIPTION: XR CHEST 2 VIEWS CLINICAL HISTORY: pneumonia COMPARISON: October 11, 2016 FINDINGS: Two-view chest x-ray shows enlargement of the cardiac silhouette without pulmonary vascular congestion. Lungs are normally aerated with chronic appearing increased interstitial markings. No acute appearing infiltrate or consolidation is seen. Large right retrocardiac hiatal hernia with air-fluid level is seen. Coronary stent is noted. Degenerative changes of the spine and shoulders are seen. IMPRESSION: No radiographic evidence of acute cardiopulmonary disease in this emphysematous chest. Electronically signed by: Miles Blanton MD 10/12/2016 07:25
[2016-10-12] MEDS: INSULIN LISPRO 100 UNITS/ML PEN SUBCU SCH ×7 (08:05→20:57)
[2016-10-12] MEDS: IPRATROPIUM BROMIDE NEBS 0.5 MG/2.5 ML VIAL NEB PRN ×3 (08:24→20:28)
[2016-10-12] MEDS: LEVALBUTEROL NEBS 1.25 MG/3 ML VIAL NEB SCH ×4 (08:25→20:28)
[2016-10-12] MEDS: FLUTICASONE/SALMETEROL 250/50 14 PUFF/17 GM INH INH SCH (08:32)
[2016-10-12] MEDS: FUROSEMIDE 40 MG TAB PO SCH (09:30)
[2016-10-12] MEDS: MECLIZINE HCL 12.5 MG TAB PO SCH (09:30)
[2016-10-12] MEDS: SODIUM CHLORIDE 0.9% (FLUSH) 10 ML SYG IV SCH ×2 (09:43→20:27)
[2016-10-12] MEDS ORDERED: INSULIN DETEMIR 100 UNITS/ML PEN SUBCU ONE (10:10)
[2016-10-12] MEDS: methylPREDNISolone SODIUM SUC 40 MG/ML VIAL IV SCH ×2 (17:39→23:32)
[2016-10-12] MEDS: INSULIN DETEMIR 100 UNITS/ML PEN SUBCU SCH ×2 (17:41→20:58)
--- NOTE | 2016-10-12 19:09 | PN ---
DATE: 10/12/16 SUPERVISING PHYSICIAN: Jarod Tapia M.D. SUBJECTIVE: The patient is sitting up in bed. She complains of some shortness of breath. She said she did not sleep very well last night. Other than that, she has no complaints of nausea or vomiting or chest pain. OBJECTIVE: VITAL SIGNS: She is afebrile, heart rate 103, respiratory rate 24, O2 sats are 96%. GENERAL: This is a 76 year-old female patient who is sitting in her hospital bed. She is moderately dyspneic. She can only say a few phrases at a time without getting short of breath. RESPIRATORY: Bilateral diffuse rhonchi. CARDIAC: Regular rate and rhythm. ABDOMEN: Soft, nondistended , non-tender. Bowel sounds are positive. EXTREMITIES: No cyanosis, clubbing or edema. NEUROLOGIC: She is awake, alert and oriented times three. LABORATORY: WBC 14.2, hemoglobin 8.8, hematocrit 26.9. BUN 40, creatinine 1.24 , glucose 187, calcium 8. Chest x-ray shows no radiographic evidence of acute cardiopulmonary disease with an emphysematous chest. All other labs and films have been reviewed via the EMR. ASSESSMENT: 1. Acute exacerbation of chronic obstructive pulmonary disease having a history of reactive airway disease with being hospitalized for similar acute exacerbations of chronic obstructive pulmonary disease. She has mild hypoxemia as demonstrated by SpO2 on blood gas analysis with mild respiratory distress and respirations in the 30s, saturation on 2 liters on admission was 92% at rest. 2. Normocytic normochromic anemia with a history of iron deficiency anemia. 3. Neutropenia, unknown etiology. Most likely secondary to her chronic obstructive pulmonary disease. 4. Gastroesophageal reflux disease. 5. Mild dehydration that has improved. 6. History of hypertension. 7. Type 2 diabetes mellitus presently on sliding scale insulin protocol. 8. Congestive heart failure with undetermined etiology. Her last echocardiogram was in 05/2013 that showed an ejection fraction of 66% and current BNP that is within normal limits. 9. Mild renal insufficiency that continues to show improvement. 10. History of seizure disorder with no mention of any seizures recently. 11. Degenerative joint disease primarily in the knees and lumbar spine. 12. Depression and anxiety. 13. History of diverticulosis. 14. History of osteoporosis. 15. History of restless leg syndrome currently on Remeron, Klonopin and [place]. 16. Chronic constipation. PLAN: We will continue present antibiotic therapy as well as aggressive pulmonary toilet and breathing treatments I will do an ambulation study to make sure she is safe to go home. I will repeat routine labs, including a magnesium as well as a chest x-ray in the morning. I have tapered down her steroids and she will most likely need to have steroid taper on discharge. Dr. Tapia is the collaborating physician and available for consultation. #[id number] [facility]
[2016-10-12] MEDS ORDERED: SODIUM CHLORIDE 0.9% 250ML 250 ML ONE (20:07)
[2016-10-12] MEDS ORDERED: SODIUM CHL 0.9% 50ML MIN-BAG+ 50 ML IVPB ONE (20:07)
[2016-10-12] MEDS ORDERED: cefTRIAXone SODIUM 1 GM VIAL ONE (20:08)
[2016-10-12] MEDS ORDERED: AZITHROMYCIN IV 500 MG VIAL IVPB ONE (20:09)
[2016-10-12] MEDS: cefTRIAXone SODIUM 1 GM in SODIUM CHL 0.9% 50ML MIN-BAG+ 50 ML IVPB SCH (20:26)
[2016-10-12] MEDS: ENOXAPARIN SODIUM 40 MG/0.4 ML SYG SUBCU SCH (20:57)
[2016-10-12] MEDS: MONTELUKAST SODIUM 10 MG TAB PO SCH (20:57)
[2016-10-12] MEDS: HYDROcodone 5MG/APAP 325MG 1 EA TAB PO SCH (20:57)
[2016-10-12] MEDS: ATORVASTATIN 20 MG TAB PO SCH (20:57)
[2016-10-12] MEDS: AZITHROMYCIN IV 500 MG in SODIUM CHLORIDE 0.9% 250ML 250 ML IVPB SCH (21:35)
[2016-10-12] MEDS: IV SET AND CAP CHANGE INJ INJ SCH (23:32)
[2016-10-13] MEDS ORDERED: PANTOPRAZOLE SODIUM IV 40 MG VIAL ONE (04:58)
[2016-10-13] MEDS: SODIUM CHLORIDE 0.9% (FLUSH) 10 ML SYG IV PRN ×2 (06:11→20:04)
[2016-10-13] MEDS: methylPREDNISolone SODIUM SUC 40 MG/ML VIAL IV SCH (06:11)
--- NOTE | 2016-10-13 07:11 | RAD ---
EXAM: Two view chest. INDICATION: Chest pain. COMPARISON: Chest x-ray: 10/12/2016. FINDINGS: Cardiac silhouette: Unremarkable. Radha: Unremarkable. Lobar consolidation: None. Pleural effusion: None. Pneumothorax: None. Other: The lungs are emphysematous. Large hiatal hernia Bones: Unremarkable. Other: None. IMPRESSION: Emphysematous appearing lungs. Large hiatal hernia Electronically signed by: Dl Elizabeth MD 10/13/2016 7:10 AM LAWN TECHNICIAN
[2016-10-13] MEDS: PANTOPRAZOLE SODIUM TAB 40 MG PO SCH (07:43)
[2016-10-13] MEDS: INSULIN LISPRO 100 UNITS/ML PEN SUBCU SCH ×7 (07:50→21:34)
[2016-10-13] MEDS: LEVALBUTEROL NEBS 1.25 MG/3 ML VIAL NEB SCH ×4 (08:22→19:55)
[2016-10-13] MEDS: FLUTICASONE/SALMETEROL 250/50 14 PUFF/17 GM INH INH SCH (08:22)
[2016-10-13] MEDS: MECLIZINE HCL 12.5 MG TAB PO SCH (08:30)
[2016-10-13] MEDS: FUROSEMIDE 40 MG TAB PO SCH (08:30)
[2016-10-13] MEDS: SODIUM CHLORIDE 0.9% (FLUSH) 10 ML SYG IV SCH ×2 (08:31→20:53)
[2016-10-13] MEDS: INSULIN DETEMIR 100 UNITS/ML PEN SUBCU SCH ×2 (08:34→21:35)
[2016-10-13] MEDS: guaiFENesin ER TAB 600 MG TAB PO SCH ×2 (12:55→20:53)
--- NOTE | 2016-10-13 13:47 | PN ---
SUPERVISING PHYSICIAN: Scott Solorzano MD DATE: 10/13/16 SUBJECTIVE: The patient is sitting up in her bed. She is in no acute distress. She denies any chest pain, nausea or vomiting. She does complain of shortness of breath, but she did say she slept very well with BiPAP last night. OBJECTIVE: VITAL SIGNS: Afebrile. Heart rate 84. Blood pressure 161/68. Respiratory rate 18. O2 saturation 97%. She does use BiPAP at night. GENERAL : This is a 76-year-old, female patient lying in her hospital bed. She is in no acute distress. LUNGS: A few scattered rhonchi throughout, somewhat diminished at the bases. CARDIAC: Regular rate and rhythm. ABDOMEN: Soft, nontender, nondistended. Bowel sounds are positive. EXTREMITIES: No cyanosis, clubbing or edema. NEUROLOGIC: Awake, alert and oriented times three. LABORATORY: WBC dropped to 11.5, 14.2 yesterday. Hemoglobin and hematocrit are stabilized at 8.9 and 27.3. Neutrophils 89.6. Sodium 141, potassium 3.4, chloride 104, BUN 42, creatinine 1.02, glucose 194, serum osmolality 297, calcium 8.2. Chest x-ray shows emphysematous appearing lungs with a large hiatal hernia. All other labs and films have been reviewed via the EMR. ASSESSMENT: 1. Acute exacerbation of chronic obstructive pulmonary disease having a history of reactive airway disease and having multiple hospitalizations for similar acute exacerbations. 2. Normocytic/normochromic anemia with a history of iron deficiency anemia with stable hemoglobin and hematocrit at this time. 3. Neutropenia, unknown etiology, stable at this point. 4. Gastroesophageal reflux disease. 5. Mild dehydration, resolved. 6. History of hypertension. 7. Type 2 diabetes mellitus, presently on sliding scale insulin protocol. 8. Congestive heart failure with undetermined etiology. Her last echocardiogram was in 05/2013 that showed an ejection fraction of 66% and current BNP on admission that is within normal limits. 9. Mild renal insufficiency, continues to improve. 10. History of seizure disorder. 11. Degenerative joint disease, primarily in the knees and lumbar spine. 12. Depression and anxiety. 13. History of diverticulosis. 14. History of osteoporosis. 15. History of restless leg syndrome currently on Remeron, Klonopin and [place]. 16. Chronic constipation. PLAN: We will continue supportive care. Hopefully she can be discharged tomorrow. I have ordered an ambulatory study to make sure she is safe to go home. She does have O2 at home and she will need to use supplemental oxygen at home. I have ordered Mucinex scheduled as well as I have decreased her IV steroids and we will change her to p.o. prednisone tomorrow. I spoke with Dr. Montana's office and she will need a close followup with pulmonology. In the past , she has seen Dr. Schwartz, but they will set her up with one of the pulmonologists from [place]. Before discharge, she will need a PFT. I will also set her up for a sleep study. I will also get her up and ambulate in the hallways. We will encourage good pulmonary toilet. Continue present support care. Dr. Solorzano is the collaborating physician and available for consultation. #[id number] [facility]
[2016-10-13] MEDS ORDERED: methylPREDNISolone SODIUM SUC 40 MG/ML VIAL IV ONE (18:00)
[2016-10-13] MEDS ORDERED: cefTRIAXone SODIUM 1 GM VIAL ONE (19:57)
[2016-10-13] MEDS ORDERED: SODIUM CHL 0.9% 50ML MIN-BAG+ 50 ML IVPB ONE (19:57)
[2016-10-13] MEDS: cefTRIAXone SODIUM 1 GM in SODIUM CHL 0.9% 50ML MIN-BAG+ 50 ML IVPB SCH (20:02)
[2016-10-13] MEDS ORDERED: SODIUM CHLORIDE 0.9% 250ML 250 ML ONE (20:48)
[2016-10-13] MEDS ORDERED: AZITHROMYCIN IV 500 MG VIAL IVPB ONE (20:49)
[2016-10-13] MEDS: ATORVASTATIN 20 MG TAB PO SCH (20:53)
[2016-10-13] MEDS: HYDROcodone 5MG/APAP 325MG 1 EA TAB PO SCH (20:53)
[2016-10-13] MEDS: ENOXAPARIN SODIUM 40 MG/0.4 ML SYG SUBCU SCH (20:53)
[2016-10-13] MEDS: MONTELUKAST SODIUM 10 MG TAB PO SCH (20:53)
[2016-10-13] MEDS: AZITHROMYCIN IV 500 MG in SODIUM CHLORIDE 0.9% 250ML 250 ML IVPB SCH (21:37)
[2016-10-14] MEDS: PANTOPRAZOLE SODIUM TAB 40 MG PO SCH (05:57)
[2016-10-14] MEDS: INSULIN LISPRO 100 UNITS/ML PEN SUBCU SCH ×7 (07:19→21:10)
[2016-10-14] MEDS: POTASSIUM CHLORIDE 10 MEQ TAB PO SCH (07:55)
[2016-10-14] MEDS: INSULIN DETEMIR 100 UNITS/ML PEN SUBCU SCH ×2 (08:34→21:11)
[2016-10-14] MEDS: LEVALBUTEROL NEBS 1.25 MG/3 ML VIAL NEB SCH ×4 (08:42→20:09)
[2016-10-14] MEDS: FLUTICASONE/SALMETEROL 250/50 14 PUFF/17 GM INH INH SCH (08:42)
[2016-10-14] MEDS: MECLIZINE HCL 12.5 MG TAB PO SCH (09:07)
[2016-10-14] MEDS: guaiFENesin ER TAB 600 MG TAB PO SCH ×2 (09:08→20:35)
[2016-10-14] MEDS: SODIUM CHLORIDE 0.9% (FLUSH) 10 ML SYG IV SCH ×2 (09:08→22:00)
[2016-10-14] MEDS: FUROSEMIDE 40 MG TAB PO SCH (09:08)
[2016-10-14] MEDS: predniSONE 20 MG TAB PO SCH (09:12)
[2016-10-14] MEDS: SITagliptin 50 MG TAB PO SCH (14:43)
--- NOTE | 2016-10-14 19:32 | PN ---
DATE: 10/14/16 SUPERVISING PHYSICIAN: Scott Solorzano M.D. SUBJECTIVE: The patient is walking in the hallway with Respiratory. She is somewhat short of breath on supplemental oxygen. She does state she is feeling much better and she has had no chest pain, abdominal pain, nausea or vomiting. We discussed at length her diabetic medications and she has been on and off several different medications over the last few months. She was unsure of what oral diabetic medication she is on, but she is on one and I will check with Dr. Montana. OBJECTIVE: VITAL SIGNS: She is afebrile, heart rate 96, blood pressure 152/72, respiratory rate 20, O2 sat 97. GENERAL: This is a 76 year-old female patient who is now lying in her hospital bed. She is in no acute distress, although after ambulation she was somewhat dyspneic. RESPIRATORY: Bilateral rhonchi but improved since yesterday. CARDIAC: Regular rate and rhythm. ABDOMEN: Soft, nondistended, non-tender. Bowel sounds are positive. EXTREMITIES: No cyanosis , clubbing or edema. NEUROLOGIC: She is awake, alert and oriented times three. LABORATORY: WBC 10, hemoglobin has improved to 9.4, hematocrit 28.3. BUN 45. Blood sugar 149 although prior to lunch it was 346. All other labs and films have been reviewed via the EMR. ASSESSMENT: 1. Acute exacerbation of chronic obstructive pulmonary disease having a history of reactive airway disease and having multiple hospitalizations for similar acute exacerbation. She does have home oxygen. 2. Normocytic normochromic anemia with a history of iron deficiency anemia with stable hemoglobin and hematocrit at this time. 3. Neutropenia of unknown etiology, stable at this time. 4. Gastroesophageal reflux disease. 5. History of hypertension. 6. Type 2 diabetes mellitus presently on hospital sliding scale insulin protocol. She is on no oral diabetic medications during this hospital stay but was recently placed on Januvia [address] Montana's office. 7. Congestive heart failure with undetermined etiology. Last echocardiogram was in May 2013 and showed an ejection fraction of 66% and current BNP on admission was within normal limits. 8. Mild renal insufficiency. 9. History of seizure disorder. 10. Degenerative joint disease primarily in the knees and lumbar spine. 11. Depression and anxiety. 12. History of diverticulosis. 13. History of osteoporosis. 14. History of restless leg syndrome currently on Remeron, Klonopin and [place]. 15. Chronic constipation. PLAN: I have restarted her Januvia, as well as continue her Levemir. We will continue to monitor her blood glucoses closely. Her ambulatory studies showed 86% on 2 liters nasal cannula and after ambulating it came up to 92%. At this point I do not believe that she is safe to go home as well as we need to regulate her blood sugars. Her sleep study is on 10/19/16 and she has a followup with Dr. Montana next week. He is also going to set her up with a automotive technology instructor and her PFTs were completed today. She is on p.o. prednisone at this time. She does continue to improve but it is very, very slowly. We will continue to encourage good pulmonary toilet and to increase her walking in the hallways as she can tolerate. Dr. Solorzano is the collaborating physician available for consultation. #[id number] [facility]
[2016-10-14] MEDS ORDERED: SODIUM CHLORIDE 0.9% 250ML 250 ML ONE ×2 (19:37→21:42)
[2016-10-14] MEDS ORDERED: SODIUM CHL 0.9% 50ML MIN-BAG+ 50 ML IVPB ONE (19:37)
[2016-10-14] MEDS ORDERED: cefTRIAXone SODIUM 1 GM VIAL ONE (19:38)
[2016-10-14] MEDS ORDERED: AZITHROMYCIN IV 500 MG VIAL IVPB ONE (19:39)
[2016-10-14] MEDS: SODIUM CHLORIDE 0.9% (FLUSH) 10 ML SYG IV PRN (19:55)
[2016-10-14] MEDS: cefTRIAXone SODIUM 1 GM in SODIUM CHL 0.9% 50ML MIN-BAG+ 50 ML IVPB SCH (19:56)
[2016-10-14] MEDS: MONTELUKAST SODIUM 10 MG TAB PO SCH (20:35)
[2016-10-14] MEDS: HYDROcodone 5MG/APAP 325MG 1 EA TAB PO SCH (20:35)
[2016-10-14] MEDS: ATORVASTATIN 20 MG TAB PO SCH (20:35)
[2016-10-14] MEDS: ENOXAPARIN SODIUM 40 MG/0.4 ML SYG SUBCU SCH (20:35)
[2016-10-14] MEDS: AZITHROMYCIN IV 500 MG in SODIUM CHLORIDE 0.9% 250ML 250 ML IVPB SCH (22:13)
[2016-10-15] MEDS: TEMAZEPAM 15 MG CAP PO PRN (02:08)
[2016-10-15] MEDS: PANTOPRAZOLE SODIUM TAB 40 MG PO SCH (06:00)
[2016-10-15 06:18] VITALS: O2SAT 98
[2016-10-15] MEDS: INSULIN LISPRO 100 UNITS/ML PEN SUBCU SCH ×5 (07:39→16:51)
[2016-10-15] MEDS: POTASSIUM CHLORIDE 10 MEQ TAB PO SCH (08:00)
[2016-10-15] MEDS: FLUTICASONE/SALMETEROL 250/50 14 PUFF/17 GM INH INH SCH (08:23)
[2016-10-15] MEDS: LEVALBUTEROL NEBS 1.25 MG/3 ML VIAL NEB SCH ×3 (08:23→18:20)
[2016-10-15] MEDS: MECLIZINE HCL 12.5 MG TAB PO SCH (08:52)
[2016-10-15] MEDS: FUROSEMIDE 40 MG TAB PO SCH (08:52)
[2016-10-15] MEDS: guaiFENesin ER TAB 600 MG TAB PO SCH (08:52)
[2016-10-15] MEDS: predniSONE 20 MG TAB PO SCH (08:52)
[2016-10-15] MEDS: SITagliptin 50 MG TAB PO SCH (08:52)
[2016-10-15] MEDS: SODIUM CHLORIDE 0.9% (FLUSH) 10 ML SYG IV SCH (08:53)
[2016-10-15] MEDS: INSULIN DETEMIR 100 UNITS/ML PEN SUBCU SCH (08:57)
[2016-10-15 14:46] VITALS: BP 151/71; TEMP 97
--- NOTE | 2016-10-15 19:55 | DS ---
SUPERVISING PHYSICIAN: Jarod Tapia M.D. DISCHARGE DIAGNOSIS: 1. Acute exacerbation of chronic obstructive pulmonary disease having a history of reactive airway disease and having multiple hospitalizations for similar acute exacerbations. She is presently on home oxygen. 2. Normocytic normochromic anemia with a history of iron deficiency anemia and a stable H&H at this time. 3. Neutropenia of unknown etiology that is stable at this time. 4. Gastroesophageal reflux disease. 5. Hypertension. 6. Type 2 diabetes mellitus. She is on Januvia as well as Levemir plus she has been on sliding scale NovoLog insulin while in the hospital. 7. Congestive heart failure with undetermined etiology. Last echocardiogram was in May 2013 that showed an ejection fraction of 66% and current BNP on admission was within normal limits. 8. Mild renal insufficiency. 9. History of seizure disorder. 10. Degenerative joint disease primarily in the knees and lumbar spine. 11. Depression and anxiety. 12. History of diverticulosis. 13. History of osteoporosis. 14. History of restless leg syndrome currently on Remeron, Klonopin and [place]. 15. Chronic constipation. HISTORY OF PRESENT ILLNESS: This is a 76 year-old female patient who has an extensive history of chronic obstructive pulmonary disease with asthma with multiple exacerbations and admissions in the past. Her last admission was on . Several days before she was admitted she was slowly developing shortness of breath and required multiple breathing treatments, and had severe dyspnea on exertion even with oxygen. She does have supplemental home oxygen that she wears 24/7. The patient presented in mild respiratory distress. She was given breathing treatments initially and her respiratory rate was 30. Her O2 sats were 93% on nasal cannula at rest and her heart rate was 114. She was given Solu-Medrol and Albuterol treatments. She showed little improvement in the Emergency Room and was initially placed in observation in the hospital, but due to her progressively worsening condition she was changed to an inpatient status. She was given Azithromycin and Rocephin while in the hospital. She also had an ABG completed in the Emergency Room that showed some mild hypoxemia with her ABG showing a pO2 of 81, pH of 7.3 and pCO2 of 42. HOSPITAL COURSE: The patient continued on antibiotics of Azithromycin and Rocephin. She was also given steroids that were slowly tapered down. At one point she actually had to use the BiPAP during the night on several different nights. She became hypoxic with any kind of exertion. She was also placed on sliding scale insulin due to her elevated blood sugars most likely that were worsened by the steroids. She did slowly improve over the next several days. Yesterday, there were some questions about her diabetic medications and I clarified with Dr. Montana that she was on Januvia 50 mg which we continued. She is also on Levemir 10 units twice a day. Today, her blood sugars have stabilized. Her ambulatory study with O2 at 2 liters maintained an O2 saturation of 91% or better. She will be discharged home today. DISCHARGE PLAN: the patient will be discharged home in stable condition. She is to resume her diabetic diet. She is to continue the Xopenex treatments as previously ordered. She will take Levemir 10 units in the morning and 10 units in the evening. I discussed her case with Dr. Montana and he will set her up with one of the pulmonologists that come to [facility]. I have completed a PFT here at the hospital. She also has a sleep study scheduled for next week. If she has any further complications or problems, she is to call Dr. Montana's office or return to the hospital. She has been placed on a steroid taper. She is to continue her oxygen at home. She has completed her Rocephin and her Azithromycin, so she will not be discharged home on any antibiotics at this time. DISCHARGE MEDICATIONS: 1. Singulair. 2. Prinivil. 3. Lisinopril. 4. Clonazepam. 5. Lipitor. 6. Remeron. 7. Meclizine. 8. Lexapro. 9. Advair. 10. Prilosec. 11. Ibuprofen. 12. Hydrocodone. 13. Levemir. 14. Januvia. 15. Prednisone taper. 16. Xopenex. Dr. Tapia is the collaborating physician available for consultation. #[id number] [facility]
--- NOTE | 2016-10-18 00:20 | RAD ---
EXAM DESCRIPTION: Chest,1 View CLINICAL HISTORY: 76 years Female sob COMPARISON: 09/24/2016. FINDINGS: The cardiomediastinal silhouette appears stable. Large hiatal hernia which was better visualized on the previous study. Changes of COPD. No consolidating infiltrates or pleural effusions. No pneumothorax. Scoliosis in the lower thoracic and lumbar spine convex right. Postsurgical changes are partially visualized in the lumbar spine. IMPRESSION: No acute abnormality is identified. Electronically signed by: Tk Cox MD 10/09/2016 7:10 PM HOT DIE PRESS FEEDER
--- NOTE | 2016-10-18 00:21 | RAD ---
EXAM DESCRIPTION: Chest,1 View CLINICAL HISTORY: 76 years Female sob COMPARISON: 09/24/2016. FINDINGS: The cardiomediastinal silhouette appears stable. Large hiatal hernia which was better visualized on the previous study. Changes of COPD. No consolidating infiltrates or pleural effusions. No pneumothorax. Scoliosis in the lower thoracic and lumbar spine convex right. Postsurgical changes are partially visualized in the lumbar spine. IMPRESSION: No acute abnormality is identified. Electronically signed by: Tk Cox MD 10/09/2016 7:10 PM CAN FILLING ROOM SWEEPER
--- NOTE | 2016-10-18 00:26 | RAD ---
PROCEDURE: Chest,2 Views CLINICAL HISTORY: COPD Exacerbation INDICATION: Same as above COMPARISON: 10/09/2016 TECHNIQUE: PA and and lateral chest radiographs were obtained. FINDINGS: There is presence of a large hiatal hernia There are no discrete airspace infiltrates, pneumothoraces or pleural effusions. The pulmonary vascularity is normal The cardiomediastinal silhouette is stable. There is generalized osteopenia of the bones of the thoracic spine with age indeterminate, most likely old compressive deformities involving at least two contiguous lower thoracic vertebrae IMPRESSION: There is no acute pleural-parenchymal process seen in the imaged lung khan. Large hiatal hernia noted There is generalized osteopenia of the bones of the thoracic spine with age indeterminate, most likely old compressive deformities involving at least two contiguous lower thoracic vertebrae Place of interpretation: Teleradiology. Electronically signed by: Scott Luque MD 10/10/2016 11:46 AM RECORDS AND TAPE RECORDINGS ENGINEER
--- NOTE | 2016-10-18 00:35 | RAD ---
EXAM: Two view chest. INDICATION: Chest pain. COMPARISON: Chest x-ray: 10/12/2016. FINDINGS: Cardiac silhouette: Unremarkable. Radha: Unremarkable. Lobar consolidation: None. Pleural effusion: None. Pneumothorax: None. Other: The lungs are emphysematous. Large hiatal hernia Bones: Unremarkable. Other: None. IMPRESSION: Emphysematous appearing lungs. Large hiatal hernia Electronically signed by: Dl Elizabeth MD 10/13/2016 7:10 AM FOREST FIRE LOOKOUT
== END 2016-10-15 18:10 | disposition home health service (06) | DRG 192 ==
LOC: ER 17:10 → OBSVTOIN 22:14 → INTOOBSV 22:14 → MS 22:14 → OBSVTOIN 10-11 19:49
PROVIDERS: ADMIT Nurse Practitioner Family; ATTEND Nurse Practitioner Acute Care
DX: J44.1 Chronic obstructive pulmonary disease with (acute) exacerbation (principal); J45.909 Unspecified asthma, uncomplicated; R09.02 Hypoxemia; D50.9 Iron deficiency anemia, unspecified; D70.9 Neutropenia, unspecified; E86.0 Dehydration; E11.65 Type 2 diabetes mellitus with hyperglycemia; K21.9 Gastro-esophageal reflux disease without esophagitis; I11.0 Hypertensive heart disease with heart failure; I50.9 Heart failure, unspecified; N28.9 Disorder of kidney and ureter, unspecified; G40.909 Epilepsy, unspecified, not intractable, without status epilepticus; M17.0 Bilateral primary osteoarthritis of knee; M47.816 Spondylosis without myelopathy or radiculopathy, lumbar region; F32.9 Major depressive disorder, single episode, unspecified; F41.9 Anxiety disorder, unspecified; K57.30 Diverticulosis of large intestine without perforation or abscess without bleeding; M81.0 Age-related osteoporosis without current pathological fracture; G25.81 Restless legs syndrome; K59.09 Other constipation; M06.9 Rheumatoid arthritis, unspecified; K44.9 Diaphragmatic hernia without obstruction or gangrene; Z66 Do not resuscitate; Z99.81 Dependence on supplemental oxygen; Z79.51 Long term (current) use of inhaled steroids; Z79.52 Long term (current) use of systemic steroids; Z79.899 Other long term (current) drug therapy; Z88.0 Allergy status to penicillin; Z88.1 Allergy status to other antibiotic agents; Z88.3 Allergy status to other anti-infective agents; Z88.6 Allergy status to analgesic agent; Z88.7 Allergy status to serum and vaccine; Z91.048 Other nonmedicinal substance allergy status; Z96.643 Presence of artificial hip joint, bilateral; Z96.652 Presence of left artificial knee joint; Z98.41 Cataract extraction status, right eye; Z90.49 Acquired absence of other specified parts of digestive tract; Z90.710 Acquired absence of both cervix and uterus; Z82.5 Family history of asthma and other chronic lower respiratory diseases; Z82.49 Family history of ischemic heart disease and other diseases of the circulatory system; Z83.3 Family history of diabetes mellitus; Z88.5 Allergy status to narcotic agent

== ENCOUNTER → 2016-10-19 | Outpatient (CLI) | payer MEDICARE, MEDICAID | LOC: SL 20:38 | PROVIDERS: ATTEND Nurse Practitioner Acute Care | DX: G47.10 Hypersomnia, unspecified (principal); G25.81 Restless legs syndrome; G47.9 Sleep disorder, unspecified; I10 Essential (primary) hypertension; E11.9 Type 2 diabetes mellitus without complications; I50.9 Heart failure, unspecified; I27.9 Pulmonary heart disease, unspecified ==

== ENCOUNTER 2017-04-02 00:19 | Emergency (ER) | payer MEDICARE, MEDICAID ==
--- NOTE | 2017-04-02 00:29 | ED.PDOC ---
History of Present Illness - General Chief Complaint: Trauma Stated Complaint: pain left/ elbow right leg Time Seen by Provider: 04/02/17 00:28 Source: patient - History of Present Illness Initial Comments: Cristian Ramirez 76 y/o female stated that she fell on her foot stool tonight landed on her left elbow on the floor stated that no head neck injury but sahrp pain left elbow and right leg.Remembers incident. Occurred: just prior to arrival Severity: moderate Injuries/Pain Location: upper extremity - left elbow, lower extremity - right leg Allergies/Adverse Reactions: Allergies Amitriptyline Allergy (Intermediate, Verified 04/02/17 00:47) Ciprofloxacin [From Cipro] Allergy (Intermediate, Verified 04/02/17 00:47) Codeine Allergy (Intermediate, Verified 04/02/17 00:47) Enalapril [From Vasotec] Allergy (Intermediate, Verified 04/02/17 00:47) Iodine Allergy (Intermediate, Verified 04/02/17 00:47) Naloxone [From Talwin Nx] Allergy (Intermediate, Verified 04/02/17 00:47) Penicillin G Allergy (Intermediate, Verified 04/02/17 00:47) Pentazocine [From Talwin Nx] Allergy (Intermediate, Verified 04/02/17 00:47) Tetanus Toxoid Allergy (Intermediate, Verified 04/02/17 00:47) Home Medications: Ambulatory Orders Atorvastatin Calcium [Lipitor] 20 mg PO BEDTIME 08/25/15 Clonazepam 0.5 mg PO BEDTIME PRN 08/25/15 Furosemide [Lasix] 40 mg PO DAILY 08/25/15 Lisinopril [Prinivil] 2.5 mg PO DAILY 08/25/15 Montelukast [Singulair] 10 mg PO BEDTIME 08/25/15 Escitalopram Oxalate [Lexapro] 20 mg PO DAILY 12/08/15 Meclizine HCl 25 mg PO DAILY 12/08/15 Mirtazapine [Remeron] 7.5 mg PO BEDTIME 12/08/15 Fluticasone/Salmeterol 250/50 [Advair 250/50 Diskus] 1 puff INH DAILY 05/19/16 Omeprazole Magnesium [Prilosec Otc] 20 mg PO BID #60 tab 05/20/16 HYDROcodone 5MG/APAP 325MG 1 ea PO BEDTIME PRN 10/09/16 Ibuprofen [Advil] 400 mg PO QAM PRN 10/09/16 Insulin Detemir [Levemir Pen] 10 units SUBCU BID #1 pen 10/15/16 Levalbuterol Nebs [Xopenex NEBS] 1.25 mg NEB RTQID #0 vial 10/15/16 Prednisone 10 mg PO DAILY #30 scott 10/15/16 SITagliptin [Januvia] 50 mg PO DAILY #30 tab 10/15/16 Tramadol HCl 50 mg PO TID PRN #20 tab 04/02/17 Review of Systems - Review of Systems Constitutional: States: no symptoms reported EENTM: States: no symptoms reported Respiratory: States: no symptoms reported Cardiology: States: no symptoms reported Gastrointestinal/Abdominal: States: no symptoms reported Genitourinary: States: no symptoms reported Musculoskeletal: States: see HPI Skin: States: no symptoms reported Past Medical History (General) - Patient Medical History Hx Seizures: Yes Hx Stroke: No Hx Dementia: Yes Hx Asthma: Yes Hx of COPD: Yes Hx Cardiac Disorders: Yes Hx Congestive Heart Failure: Yes Hx Pacemaker: No Hx Hypertension: Yes Hx Thyroid Disease: No Hx Diabetes: Yes Hx Gastroesophageal Reflux: Yes Hx Cancer: No Hx of HIV: No Hx Hepatitis C: No Hx MRSA: Yes Hx Other PMH: Yes - rheumatoid arthritis MRSA Source:: Blood Surgical History: other - lumbar spine,knee - Vaccination History Hx Tetanus, Diphtheria Vaccination: Yes Hx Influenza Vaccination: No Hx Pneumococcal Vaccination: Yes - 2012 (?) - Social History Hx Tobacco Use: Yes Hx Chewing Tobacco Use: No Hx Alcohol Use: No Hx Substance Use: No Hx Substance Use Treatment: No Hx Depression: No Hx Physical Abuse: No Hx Emotional Abuse: No - Activities of Daily Living Patient Lives Alone: No - brother Grooming Ability: Independent Eating (Feeding) Ability: Independent Toileting Ability: Independent - Female History Patient : No Physical Exam - Physical Exam General Appearance: Alert, Comfortable, No apparent distress Head Injury: no evidence of injury Eye Exam: bilateral normal ENT Exam: hearing grossly normal, no evidence of ENT injury, no dental injury Peripheral Pulses: radial,right: 1+, radial,left: 1+ Cardiovascular/Respiratory: regular rate, rhythm, no M/R/G Gastrointestinal/Abdominal: normal bowel sounds, non tender, soft Back Exam: normal inspection, no CVA tenderness Extremity Exam: no pedal edema, bony-point tenderness - left elbow, pain with movement - left elbow, other - right ankle tenderness lateral malleolus Neurologic: no motor/sensory deficits, alert, oriented x 3 Skin Exam: normal color, warm/dry - [place]ita Coma Score Best Eye Response (Gilbert): (4) open spontaneously Best Verbal Response (Gilbert): (5) oriented Best Motor Response (Gilbert): (6) obeys commands Blanquita Total: 15 Progress - EKG/XRAY/CT XRAY: elbow - left fracture distal humerus Departure - Departure Clinical Impression: Fall at home Qualifiers: Encounter type: initial encounter Qualified Code(s): W19.XXXA - Unspecified fall, initial encounter; Y92.099 - Unspecified place in other non-institutional residence as the place of occurrence of the external cause Fracture of humerus, distal, left, closed Qualifiers: Encounter type: initial encounter Fracture morphology: unspecified fracture morphology Qualified Code(s): S42.402A - Unspecified fracture of lower end of left humerus, initial encounter for closed fracture Ankle pain, right Qualifiers: Chronicity: acute Qualified Code(s): M25.571 - Pain in right ankle and joints of right foot Time of Disposition: 01:32 Disposition: Discharge to Home or Self Care Condition: Good Instructions: DI for Elbow Fracture, Elbow Fracture Referrals: Kai Montana MD [Primary Care Provider] - 1-2 Weeks Prescriptions: Tramadol HCl 50 mg PO TID PRN #20 tab PRN Reason: Pain Home Medications: Ambulatory Orders Atorvastatin Calcium [Lipitor] 20 mg PO BEDTIME 08/25/15 Clonazepam 0.5 mg PO BEDTIME PRN 08/25/15 Furosemide [Lasix] 40 mg PO DAILY 08/25/15 Lisinopril [Prinivil] 2.5 mg PO DAILY 08/25/15 Montelukast [Singulair] 10 mg PO BEDTIME 08/25/15 Escitalopram Oxalate [Lexapro] 20 mg PO DAILY 12/08/15 Meclizine HCl 25 mg PO DAILY 12/08/15 Mirtazapine [Remeron] 7.5 mg PO BEDTIME 12/08/15 Fluticasone/Salmeterol 250/50 [Advair 250/50 Diskus] 1 puff INH DAILY 05/19/16 Omeprazole Magnesium [Prilosec Otc] 20 mg PO BID #60 tab 05/20/16 HYDROcodone 5MG/APAP 325MG 1 ea PO BEDTIME PRN 10/09/16 Ibuprofen [Advil] 400 mg PO QAM PRN 10/09/16 Insulin Detemir [Levemir Pen] 10 units SUBCU BID #1 pen 10/15/16 Levalbuterol Nebs [Xopenex NEBS] 1.25 mg NEB RTQID #0 vial 10/15/16 Prednisone 10 mg PO DAILY #30 scott 10/15/16 SITagliptin [Januvia] 50 mg PO DAILY #30 tab 10/15/16 Tramadol HCl 50 mg PO TID PRN #20 tab 04/02/17 Additional Instructions: Follow up with orthopedist Dr. Barboza 04/04/2017 call for appointment
[2017-04-02 00:46] VITALS: BP 126/83; TEMP 97.9; O2SAT 96
--- NOTE | 2017-04-02 00:53 | RAD ---
EXAM DESCRIPTION: Elbow,Left 2 Views CLINICAL HISTORY: 76 years ,Female fall COMPARISON: None. TECHNIQUE: LEFT elbow, two view FINDINGS: There is a joint effusion with anterior and posterior fat pads. There are degenerative changes surrounding the elbow. There is a lucency that appears to extend longitudinally along the distal humerus concerning for fracture. Fracture may extend through the lateral epicondyle. Recommend further evaluation with CT. Irregularity along the radial head likely reflecting osteophytosis. There is chronic appearing fragmentation along the medial and lateral epicondyles. Vascular calcification is present. IMPRESSION: Joint effusion with longitudinal lucency along the distal humerus concerning for fracture. Fracture may extend through the lateral epicondyle. Recommend correlation with CT Irregularity along the radial head which appears to represent osteophytosis rather than fracture Electronically signed by: Smita Cox 04/02/2017 12:52 AM CDT
--- NOTE | 2017-04-02 00:54 | RAD ---
EXAM DESCRIPTION: Tibia/Fibula,Right CLINICAL HISTORY: 76 years Female fall COMPARISON: None. TECHNIQUE: RIGHT tibia fibula, two views FINDINGS: No acute fractures or dislocations are identified. No osseous destructive lesions. Total knee prosthesis with anatomic alignment. Bony demineralization. Vascular calcification. IMPRESSION: No acute fracture is identified. Electronically signed by: Smita Cox 04/02/2017 12:53 AM CDT
[2017-04-02] MEDS ORDERED: HYDROCOD/APAP 10/325 (ER DISP) # 3 tablets PO ONE (01:29)
== END 2017-04-02 01:29 | disposition home or self-care (01) ==
LOC: ER 00:19
DX: S42.402A Unspecified fracture of lower end of left humerus, initial encounter for closed fracture (principal); M25.571 Pain in right ankle and joints of right foot; J44.9 Chronic obstructive pulmonary disease, unspecified; F03.90 Unspecified dementia, unspecified severity, without behavioral disturbance, psychotic disturbance, mood disturbance, and anxiety; I11.0 Hypertensive heart disease with heart failure; I50.9 Heart failure, unspecified; M06.9 Rheumatoid arthritis, unspecified; Z87.891 Personal history of nicotine dependence; Z88.8 Allergy status to other drugs, medicaments and biological substances; Z88.0 Allergy status to penicillin; W18.09XA Striking against other object with subsequent fall, initial encounter; Y92.9 Unspecified place or not applicable

== ENCOUNTER → 2017-04-04 | Outpatient (CLI) | payer MEDICARE, OTHER ==
--- NOTE | 2017-04-05 07:52 | CT ---
Study: CT of the Left Elbow. Indication: HUMERUS FX Technique: Axial CT of the left elbow was performed without contrast. Coronal and sagittal reformats performed. This exam was performed according to our departmental dose-optimization program, which includes automated exposure control, adjustment of the mA and/or kV according to patient size and/or use of iterative reconstruction technique. Comparison: Radiographs April 02, 2017. FINDINGS: Comminuted distal humeral fracture noted with a sagittal/oblique component through the lateral humeral metaphysis immediately proximal to the lateral humeral condyle. The fracture extends in the ulnar/distal direction with a sagittal component disrupting the radial margin of the trochlea. The fracture is relatively nondisplaced. Large elbow effusion. Moderate osteoarthritis of both elbow compartments. 10 mm loose body within the anterior joint space. Enthesophyte formation triceps tendon insertion. Enthesophyte formation/ossification of the common extensor tendon origin. Vascular calcifications noted. IMPRESSION: Nondisplaced distal humeral fracture as above. Additional findings as above. Electronically signed by: Mike Nazario MD 04/05/2017 7:51 AM CDT
== END | disposition home or self-care (01) ==
LOC: CT 10:03
PROVIDERS: ATTEND Orthopaedic Surgery
DX: S42.402A Unspecified fracture of lower end of left humerus, initial encounter for closed fracture (principal)

== ENCOUNTER → 2017-04-07 | Outpatient (CLI) | payer MEDICARE, MEDICAID ==
--- NOTE | 2017-04-07 17:09 | RAD ---
EXAM DESCRIPTION: Humerus,Left CLINICAL HISTORY: FX COMPARISON: CT dated 04 April 2017 TECHNIQUE: AP and lateral FINDINGS: Degenerative changes are observed in the glenohumeral joint. The exam reveals a probable calcified loose body immediately below the joint. There is uprising the humeral head suggesting rotator cuff tear. A nondisplaced fracture of the lateral humeral condyle is observed. It remains unchanged from the prior CT. Soft tissue swelling is observed about the elbow. IMPRESSION: 1. Moderately severe degenerative changes are observed in the shoulder. 2. A nondisplaced lateral condyle fracture is observed in the distal humerus. Electronically signed by: Levy Enriquez MD 04/07/2017 5:08 PM CDT
== END | disposition home or self-care (01) ==
LOC: RAD 09:54
PROVIDERS: ATTEND Orthopaedic Surgery
DX: M79.602 Pain in left arm (principal)

== ENCOUNTER 2017-04-10 12:50 | Emergency (ER) | payer MEDICARE, MEDICAID ==
--- NOTE | 2017-04-10 13:24 | ED.PDOC ---
History of Present Illness - General Chief Complaint: Upper Extremity Injury Time Seen by Provider: 04/10/17 13:16 Source: patient Exam Limitations: no limitations - History of Present Illness Initial Comments: Patient has a left elbow fracture and ran out of hydrocodone today. She was taking one tablet in the morning and one at night. She has an appointment with Dr. Barboza in the morning. She would like pain control that will last her until the morning. Pain is in the left elbow, non-radiating, is splinted, and has been hurting worse since last night. No other complaints. Timing/Duration: 24 hours Severity: moderate Improving Factors: nothing Worsening Factors: nothing Associated Symptoms: denies symptoms Allergies/Adverse Reactions: Allergies Amitriptyline Allergy (Intermediate, Verified 04/02/17 00:47) Ciprofloxacin [From Cipro] Allergy (Intermediate, Verified 04/02/17 00:47) Codeine Allergy (Intermediate, Verified 04/02/17 00:47) Enalapril [From Vasotec] Allergy (Intermediate, Verified 04/02/17 00:47) Iodine Allergy (Intermediate, Verified 04/02/17 00:47) Naloxone [From Talwin Nx] Allergy (Intermediate, Verified 04/02/17 00:47) Penicillin G Allergy (Intermediate, Verified 04/02/17 00:47) Pentazocine [From Talwin Nx] Allergy (Intermediate, Verified 04/02/17 00:47) Tetanus Toxoid Allergy (Intermediate, Verified 04/02/17 00:47) Home Medications: Ambulatory Orders Atorvastatin Calcium [Lipitor] 20 mg PO BEDTIME 08/25/15 Clonazepam 0.5 mg PO BEDTIME PRN 08/25/15 Furosemide [Lasix] 40 mg PO DAILY 08/25/15 Lisinopril [Prinivil] 2.5 mg PO DAILY 08/25/15 Montelukast [Singulair] 10 mg PO BEDTIME 08/25/15 Escitalopram Oxalate [Lexapro] 20 mg PO DAILY 12/08/15 Meclizine HCl 25 mg PO DAILY 12/08/15 Mirtazapine [Remeron] 7.5 mg PO BEDTIME 12/08/15 Fluticasone/Salmeterol 250/50 [Advair 250/50 Diskus] 1 puff INH DAILY 05/19/16 Omeprazole Magnesium [Prilosec Otc] 20 mg PO BID #60 tab 05/20/16 HYDROcodone 5MG/APAP 325MG 1 ea PO BEDTIME PRN 10/09/16 Ibuprofen [Advil] 400 mg PO QAM PRN 10/09/16 Insulin Detemir [Levemir Pen] 10 units SUBCU BID #1 pen 10/15/16 Levalbuterol Nebs [Xopenex NEBS] 1.25 mg NEB RTQID #0 vial 10/15/16 Prednisone 10 mg PO DAILY #30 scott 10/15/16 SITagliptin [Januvia] 50 mg PO DAILY #30 tab 10/15/16 Tramadol HCl 50 mg PO TID PRN #20 tab 04/02/17 HYDROcodone 10MG/APAP 325MG [[place] 10/325] 1 ea PO Q12HR PRN #5 tab 04/10/17 Review of Systems - Review of Systems Constitutional: States: no symptoms reported EENTM: States: no symptoms reported Respiratory: States: no symptoms reported Cardiology: States: no symptoms reported Gastrointestinal/Abdominal: States: no symptoms reported Genitourinary: States: no symptoms reported Musculoskeletal: States: see HPI Skin: States: no symptoms reported Neurological: States: no symptoms reported Endocrine: States: no symptoms reported Hematologic/Lymphatic: States: no symptoms reported Past Medical History (General) - Patient Medical History Hx Seizures: Yes Hx Stroke: No Hx Dementia: Yes Hx Asthma: Yes Hx of COPD: Yes Hx Cardiac Disorders: Yes Hx Congestive Heart Failure: Yes Hx Pacemaker: No Hx Hypertension: Yes Hx Thyroid Disease: No Hx Diabetes: Yes Hx Gastroesophageal Reflux: Yes Hx Renal Disease: No Hx Cancer: No Hx of HIV: No Hx Hepatitis C: No Hx MRSA: Yes MRSA Source:: Blood - Vaccination History Hx Tetanus, Diphtheria Vaccination: Yes Hx Influenza Vaccination: No Hx Pneumococcal Vaccination: Yes - 2012 (?) - Social History Hx Tobacco Use: Yes Hx Chewing Tobacco Use: No Hx Alcohol Use: No Hx Substance Use: No Hx Substance Use Treatment: No Hx Depression: No Hx Physical Abuse: No Hx Emotional Abuse: No Hx Suspected Abuse: No - Female History Patient : No Family Medical History - Family History Mother Family History: Unknown Living Status: Hx Family Asthma: Yes Hx Cardiac Disease: Yes Hx Family Diabetes: Yes Physical Exam - Physical Exam General Appearance: Alert Respiratory: lungs clear Cardiovascular/Chest: regular rate, rhythm Gastrointestinal/Abdominal: normal bowel sounds, non tender, soft Extremity: other - unable to examen due to splinting Departure - Departure Clinical Impression: Fractured elbow Disposition: Discharge to Home or Self Care Condition: Good Departure Forms: ED Discharge - Pt. Copy, Patient Portal Self Enrollment Diet: resume usual diet Activity: other - as per your regular doctor Referrals: Kai Montana MD [Primary Care Provider] - 1-2 Weeks Prescriptions: HYDROcodone 10MG/APAP 325MG [[place] 10/325] 1 ea PO Q12HR PRN #5 tab PRN Reason: Pain Home Medications: Ambulatory Orders Atorvastatin Calcium [Lipitor] 20 mg PO BEDTIME 08/25/15 Clonazepam 0.5 mg PO BEDTIME PRN 08/25/15 Furosemide [Lasix] 40 mg PO DAILY 08/25/15 Lisinopril [Prinivil] 2.5 mg PO DAILY 08/25/15 Montelukast [Singulair] 10 mg PO BEDTIME 08/25/15 Escitalopram Oxalate [Lexapro] 20 mg PO DAILY 12/08/15 Meclizine HCl 25 mg PO DAILY 12/08/15 Mirtazapine [Remeron] 7.5 mg PO BEDTIME 12/08/15 Fluticasone/Salmeterol 250/50 [Advair 250/50 Diskus] 1 puff INH DAILY 05/19/16 Omeprazole Magnesium [Prilosec Otc] 20 mg PO BID #60 tab 05/20/16 HYDROcodone 5MG/APAP 325MG 1 ea PO BEDTIME PRN 10/09/16 Ibuprofen [Advil] 400 mg PO QAM PRN 10/09/16 Insulin Detemir [Levemir Pen] 10 units SUBCU BID #1 pen 10/15/16 Levalbuterol Nebs [Xopenex NEBS] 1.25 mg NEB RTQID #0 vial 10/15/16 Prednisone 10 mg PO DAILY #30 scott 10/15/16 SITagliptin [Januvia] 50 mg PO DAILY #30 tab 10/15/16 Tramadol HCl 50 mg PO TID PRN #20 tab 04/02/17 HYDROcodone 10MG/APAP 325MG [[place] 10/325] 1 ea PO Q12HR PRN #5 tab 04/10/17
[2017-04-10] MEDS ORDERED: HYDROmorphone HCL INJ 2 MG/ML VIAL IM ONE (13:27)
[2017-04-10] MEDS ORDERED: HYDROCOD/APAP 10/325 (ER DISP) # 3 tablets PO ONE (14:03)
[2017-04-10 14:42] VITALS: BP 131/84; O2SAT 97
== END 2017-04-10 14:41 | disposition home or self-care (01) ==
LOC: ER 12:50
DX: S42.402D Unspecified fracture of lower end of left humerus, subsequent encounter for fracture with routine healing (principal); J44.9 Chronic obstructive pulmonary disease, unspecified; I11.0 Hypertensive heart disease with heart failure; I50.9 Heart failure, unspecified; E11.9 Type 2 diabetes mellitus without complications; K21.9 Gastro-esophageal reflux disease without esophagitis; Z86.14 Personal history of Methicillin resistant Staphylococcus aureus infection; Z88.6 Allergy status to analgesic agent; Z88.0 Allergy status to penicillin; Z88.8 Allergy status to other drugs, medicaments and biological substances; Z88.7 Allergy status to serum and vaccine; Z87.891 Personal history of nicotine dependence; Z79.899 Other long term (current) drug therapy; Z88.3 Allergy status to other anti-infective agents; X58.XXXD Exposure to other specified factors, subsequent encounter

== ENCOUNTER → 2017-04-11 | Outpatient (CLI) | payer MEDICARE, MEDICAID ==
--- NOTE | 2017-04-11 12:50 | RAD ---
EXAM DESCRIPTION: Humerus,Left CLINICAL HISTORY: PAIN IN LEFT ARM COMPARISON: April 07, 2017 IMPRESSION: 2 views of the left humerus again show nondisplaced fracture of the lateral condyle of the distal humerus with indistinctness of the fracture margin suggesting interval healing. Osseous structures are diffusely osteopenic. Severe advanced osteoarthritic changes of the left glenohumeral joint are seen. Stable large calcification in the soft tissue or inferior glenohumeral joint is again seen. Electronically signed by: Miles Blanton MD 04/11/2017 12:49 PM CDT
== END | disposition home or self-care (01) ==
LOC: RAD 08:08
PROVIDERS: ATTEND Orthopaedic Surgery
DX: M79.602 Pain in left arm (principal)

== ENCOUNTER 2017-04-12 20:10 | Inpatient (IN) | payer MEDICARE, MEDICAID ==
--- NOTE | 2017-04-12 20:34 | ED.PDOC ---
History of Present Illness - General Chief Complaint: General Stated Complaint: weakness, slid out of bed Time Seen by Provider: 04/12/17 20:26 Source: patient, family Exam Limitations: no limitations - History of Present Illness Initial Comments: Patient presents by EMS after her son found her lying on the floor about one hour before presentation. He said he tried to call her several times but she was too weak to get up and answer the phone. She says she feels weak. She has no other complaints. Denies chest pain or dyspnea. Timing/Duration: 1-3 hours Severity: moderate Improving Factors: nothing Worsening Factors: nothing Associated Symptoms: denies symptoms Allergies/Adverse Reactions: Allergies Amitriptyline Allergy (Intermediate, Verified 04/02/17 00:47) Ciprofloxacin [From Cipro] Allergy (Intermediate, Verified 04/02/17 00:47) Codeine Allergy (Intermediate, Verified 04/02/17 00:47) Enalapril [From Vasotec] Allergy (Intermediate, Verified 04/02/17 00:47) Iodine Allergy (Intermediate, Verified 04/02/17 00:47) Naloxone [From Talwin Nx] Allergy (Intermediate, Verified 04/02/17 00:47) Penicillin G Allergy (Intermediate, Verified 04/02/17 00:47) Pentazocine [From Talwin Nx] Allergy (Intermediate, Verified 04/02/17 00:47) Tetanus Toxoid Allergy (Intermediate, Verified 04/02/17 00:47) Home Medications: Ambulatory Orders Atorvastatin Calcium [Lipitor] 20 mg PO BEDTIME 08/25/15 Clonazepam 0.5 mg PO BEDTIME PRN 08/25/15 Furosemide [Lasix] 40 mg PO DAILY 08/25/15 Lisinopril [Prinivil] 2.5 mg PO DAILY 08/25/15 Montelukast [Singulair] 10 mg PO BEDTIME 08/25/15 Escitalopram Oxalate [Lexapro] 20 mg PO DAILY 12/08/15 Meclizine HCl 25 mg PO DAILY 12/08/15 Mirtazapine [Remeron] 7.5 mg PO BEDTIME 12/08/15 Fluticasone/Salmeterol 250/50 [Advair 250/50 Diskus] 1 puff INH DAILY 05/19/16 Omeprazole Magnesium [Prilosec Otc] 20 mg PO BID #60 tab 05/20/16 HYDROcodone 5MG/APAP 325MG 1 ea PO BEDTIME PRN 10/09/16 Ibuprofen [Advil] 400 mg PO QAM PRN 10/09/16 Insulin Detemir [Levemir Pen] 10 units SUBCU BID #1 pen 10/15/16 Levalbuterol Nebs [Xopenex NEBS] 1.25 mg NEB RTQID #0 vial 10/15/16 Prednisone 10 mg PO DAILY #30 scott 10/15/16 SITagliptin [Januvia] 50 mg PO DAILY #30 tab 10/15/16 Tramadol HCl 50 mg PO TID PRN #20 tab 04/02/17 HYDROcodone 10MG/APAP 325MG [[place] 10/325] 1 ea PO Q12HR PRN #5 tab 04/10/17 Review of Systems - Review of Systems Constitutional: States: weakness EENTM: States: no symptoms reported Respiratory: States: no symptoms reported Cardiology: States: no symptoms reported Gastrointestinal/Abdominal: States: no symptoms reported Genitourinary: States: no symptoms reported Musculoskeletal: States: no symptoms reported Skin: States: no symptoms reported Neurological: States: no symptoms reported Endocrine: States: no symptoms reported Hematologic/Lymphatic: States: no symptoms reported Past Medical History (General) - Patient Medical History Hx Seizures: Yes Hx Stroke: No Hx Dementia: Yes Hx Asthma: Yes Hx of COPD: Yes Hx Cardiac Disorders: Yes Hx Congestive Heart Failure: Yes Hx Pacemaker: No Hx Hypertension: Yes Hx Thyroid Disease: No Hx Diabetes: Yes Hx Gastroesophageal Reflux: Yes Hx Renal Disease: No Hx Cancer: No Hx of HIV: No Hx Hepatitis C: No Hx MRSA: Yes MRSA Source:: Blood Surgical History: appendectomy, cholecystectomy, Hysterectomy - Vaccination History Hx Tetanus, Diphtheria Vaccination: Yes Hx Influenza Vaccination: Yes Hx Pneumococcal Vaccination: Yes - Social History Hx Tobacco Use: Yes Hx Chewing Tobacco Use: No Hx Alcohol Use: No Hx Substance Use: No Hx Substance Use Treatment: No Hx Depression: No Hx Physical Abuse: No Hx Emotional Abuse: No Hx Suspected Abuse: No - Female History Patient : No Family Medical History - Family History Mother Family History: Unknown Living Status: Hx Family Asthma: Yes Hx Cardiac Disease: Yes Hx Family Diabetes: Yes Physical Exam - Physical Exam General Appearance: Alert Ears, Nose, Throat: normal ENT inspection Neck: non-tender Respiratory: lungs clear, normal breath sounds Cardiovascular/Chest: normal peripheral pulses, regular rate, rhythm Gastrointestinal/Abdominal: normal bowel sounds, non tender, soft Neurologic: no motor/sensory deficits Progress - Progress Progress: 04/12/17 22:05 Leukocytosis. UA negative. No evidence of pneumonia on CXR. One liter IV NS started and 1 gram Rocephin IV. Patient admitted for weakness and leukocytosis. Laboratory Tests 04/12/17 04/12/17 04/12/17 20:55 20:55 20:55 WBC 19.1 H RBC 3.78 L Hgb 11.6 L Hct 34.9 L MCV 92.2 MCH 30.6 MCHC 33.2 RDW 15.6 H Plt Count 261 MPV 7.6 Absolute Neuts (auto) 15.90 H Absolute Lymphs (auto) 1.60 Absolute Monos (auto) 1.40 H Absolute Eos (auto) 0.10 Absolute Basos (auto) 0.10 Neutrophils % 83.2 H Lymphocytes % 8.5 L Monocytes % 7.4 Eosinophils % 0.5 L Basophils % 0.4 PT 12.8 H INR 1.130 PTT (SP) 31.0 Sodium 140 Potassium 4.4 Chloride 104 Carbon Dioxide 25 Anion Gap 15.4 BUN 13 Creatinine 0.88 BUN/Creatinine Ratio 14.8 Random Glucose 133 H Serum Osmolality 281.4 Calcium 9.4 Total Bilirubin 1.2 H AST 16 ALT 11 Alkaline Phosphatase 86 Creatine Kinase CK-MB (CK-2) CK-MB (CK-2) % Troponin I B-Natriuretic Peptide Serum Total Protein 7.3 Albumin 3.8 Globulin 3.5 Albumin/Globulin Ratio 1.1 Thyroxine (T4) Urine Color Urine Appearance Urine pH Ur Specific [place] Urine Protein Urine Glucose (UA) Urine Ketones Urine Blood Urine Nitrite Urine Bilirubin Urine Urobilinogen Ur Leukocyte Esterase Urine RBC Urine WBC Ur Epithelial Cells Urine Bacteria 04/12/17 04/12/17 04/12/17 20:55 20:55 21:00 WBC RBC Hgb Hct MCV MCH MCHC RDW Plt Count MPV Absolute Neuts (auto) Absolute Lymphs (auto) Absolute Monos (auto) Absolute Eos (auto) Absolute Basos (auto) Neutrophils % Lymphocytes % Monocytes % Eosinophils % Basophils % PT INR PTT (SP) Sodium Potassium Chloride Carbon Dioxide Anion Gap BUN Creatinine BUN/Creatinine Ratio Random Glucose Serum Osmolality Calcium Total Bilirubin AST ALT Alkaline Phosphatase Creatine Kinase 59 CK-MB (CK-2) 1.8 CK-MB (CK-2) % Not Reportable Troponin I < 0.02 B-Natriuretic Peptide 154.0 H Serum Total Protein Albumin Globulin Albumin/Globulin Ratio Thyroxine (T4) 9.09 Urine Color Yellow Urine Appearance Clear Urine pH 6.0 Ur Specific [place] 1.020 Urine Protein Negative Urine Glucose (UA) Negative Urine Ketones 15 H Urine Blood Negative Urine Nitrite Negative Urine Bilirubin Small H Urine Urobilinogen 1.0 Ur Leukocyte Esterase Negative Urine RBC 0 Urine WBC 0 Ur Epithelial Cells 0-1 Urine Bacteria Rare Departure - Departure Clinical Impression: Leukocytosis, unspecified, Weakness Disposition: Admit Patient Condition: Fair Departure Forms: ED Discharge - Pt. Copy, Patient Portal Self Enrollment Diet: other - as per hospitalist Activity: increase activity as tolerated Referrals: Kai Montana MD [Primary Care Provider] - 1-2 Weeks Home Medications: Ambulatory Orders Atorvastatin Calcium [Lipitor] 20 mg PO BEDTIME 08/25/15 Clonazepam 0.5 mg PO BEDTIME PRN 08/25/15 Furosemide [Lasix] 40 mg PO DAILY 08/25/15 Lisinopril [Prinivil] 2.5 mg PO DAILY 08/25/15 Montelukast [Singulair] 10 mg PO BEDTIME 08/25/15 Escitalopram Oxalate [Lexapro] 20 mg PO DAILY 12/08/15 Meclizine HCl 25 mg PO DAILY 12/08/15 Mirtazapine [Remeron] 7.5 mg PO BEDTIME 12/08/15 Fluticasone/Salmeterol 250/50 [Advair 250/50 Diskus] 1 puff INH DAILY 05/19/16 Omeprazole Magnesium [Prilosec Otc] 20 mg PO BID #60 tab 05/20/16 HYDROcodone 5MG/APAP 325MG 1 ea PO BEDTIME PRN 10/09/16 Ibuprofen [Advil] 400 mg PO QAM PRN 10/09/16 Insulin Detemir [Levemir Pen] 10 units SUBCU BID #1 pen 10/15/16 Levalbuterol Nebs [Xopenex NEBS] 1.25 mg NEB RTQID #0 vial 10/15/16 Prednisone 10 mg PO DAILY #30 scott 10/15/16 SITagliptin [Januvia] 50 mg PO DAILY #30 tab 10/15/16 Tramadol HCl 50 mg PO TID PRN #20 tab 04/02/17 HYDROcodone 10MG/APAP 325MG [[place] ] 1 ea PO Q12HR PRN #5 tab 04/10/17
--- NOTE | 2017-04-12 20:49 | RAD ---
EXAM DESCRIPTION: Chest,1 View CLINICAL HISTORY: 76 years Female weakness COMPARISON: October 13, 2016 FINDINGS: Prominent heart size and hilar regions bilaterally which appear unchanged. Chronic appearing infiltrate or scarring in the apices. Some blunting of both costophrenic angles which appears similar to the previous study. No acute consolidation. IMPRESSION: Interval appearance of the chest Areas of scarring in the lung apices bilaterally Blunting of the costophrenic angles also likely related to scarring. Small effusions are not excluded Scoliosis and postsurgical changes in the spine Electronically signed by: Smita Cox 04/12/2017 8:48 PM CDT
[2017-04-12] MEDS ORDERED: SODIUM CHLORIDE 0.9% 1000ML 1,000 ML IVS ONE (21:22)
[2017-04-12] MEDS ORDERED: cefTRIAXone SODIUM 1 GM in SODIUM CHL 0.9% 50ML MIN-BAG+ 50 ML IVPB ONE (22:01)
[2017-04-12] MEDS ORDERED: cefTRIAXone SODIUM 1 GM VIAL ONE (22:34)
[2017-04-12] MEDS ORDERED: SODIUM CHL 0.9% 50ML MIN-BAG+ 50 ML IVPB ONE (22:34)
--- NOTE | 2017-04-12 22:53 | HP ---
SUPERVISING PHYSICIAN: Scott Solorzano MD CHIEF COMPLAINT: Extreme weakness and some confusion. HISTORY OF PRESENT ILLNESS: This is a 76-year-old female patient who presented to the Emergency Room after her son found her lying on the floor about one hour before she came to the Emergency Room. He had tried to call her several times during the evening, but she was too weak to get up and answer the phone. She complained of feeling very weak and she had some confusion as she does not know how long she was down. She denied any traumatic fall or loss of consciousness. She did break her left arm a couple of weeks ago and she has been seeing Dr. Barboza for that. In the Emergency Room, she was found to have leukocytosis with WBC 19.1 and a left shift, neutrophils 83.2%, hemoglobin 11.6, hematocrit 34.9. PT 12.8, INR 1.13. Chemistries were basically within normal limits with the exception of her glucose was 133. Liver enzymes were basically within normal limits, but her bilirubin was 1.2. Cardiac enzymes were negative. BNP was 154. Urine was positive for urine ketones at 15 and urine bilirubin was small. Chest x-ray per radiologic interpretation showed interval appearance of the chest, areas of scarring in the lung apices bilaterally, and blunting of the costophrenic angles also likely related to scarring. Small effusions are not excluded. Scoliosis and post surgical changes in the spine. I was called to place the patient in observation. PAST MEDICAL HISTORY: 1. Chronic obstructive pulmonary disease with a history of asthma and reactive airways disease. 2. Diabetes mellitus, type 2. 3. Hypertension. 4. Degenerative joint disease. 5. Osteoporosis. 6. History of seizure disorder with questionable pseudoseizures. 7. Rheumatoid arthritis. 8. Gastroesophageal reflux disease. 9. Congestive heart failure with unknown etiology. Last echocardiogram with a notable ejection fraction of 65% and current admission showing a BNP just slightly elevated. 10. History of iron deficiency anemia. 11. History of diverticulosis. 12. History of restless leg syndrome. PAST SURGICAL HISTORY: 1. Bilateral hip replacements. 2. Left knee replacement. 3. Hysterectomy. 4. Bladder suspension. 5. Breast reduction. 6. Hernia repair. 7. Back surgery. 8. Tonsillectomy and adenoidectomy. 9. Appendectomy. 10. Cholecystectomy. 11. Right cataract removal. HOME MEDICATIONS: Per the EMR and awaiting verification. ALLERGIES: AMITRIPTYLINE, CIPRO, CODEINE, VASOTEC, IODINE, NALOXONE, PENICILLIN , PENTAZOCINE, TETANUS TOXOID, MORPHINE. SOCIAL HISTORY: The patient is . She lives at home with her two brothers. She denies smoking, but has been around secondary smoke for most of her life. She denies any ETOH or illicit drug use. REVIEW OF SYSTEMS: GENERAL: Denies fever, fatigue or weight changes. HEENT: Denies sinus symptoms, hearing problems, vision changes or sore throat. RESPIRATORY: Complains of some mild shortness of breath, but that is not unusual for her. Denies wheezing or coughing. CARDIAC: Denies chest pain, palpitations or tachycardia. GASTROINTESTINAL: Denies nausea, vomiting, diarrhea, constipation or abdominal pain. GENITOURINARY: Denies hematuria, dysuria or polyuria. EXTREMITIES: Denies edema or extremity pain with the exception of her left arm that she has broken recently. She says it hurts on and off. NEUROLOGIC: Denies headache or dizziness. Positive for weakness. PHYSICAL EXAMINATION: VITAL SIGNS: Low grade fever at 99.7. Pulse 102. Blood pressure 141/72. Respiratory rate 20. O2 saturation 97% on 2 liters. GENERAL: This is a 76-year-old female patient who is lying in her hospital bed. She is in no acute distress. HEENT: Normocephalic, atraumatic. Pupils are equal and reactive. Oropharynx is clear. Oral mucous membranes are slightly dry. NECK: Supple without mass. RESPIRATORY: Clear to auscultation bilaterally. CHEST: There is equal rise and fall of the chest with inspiration and expiration. CARDIOVASCULAR: Regular rate and rhythm. ABDOMEN: Soft, nondistended, nontender. Bowel sounds are positive. EXTREMITIES: No cyanosis, clubbing or edema. She does have an Ray wrap on her left arm. Her radial pulses are +2 with no edema noted to the fingers on her left hand. NEUROLOGIC: Awake, alert and oriented times three. LABORATORY: Labs and films are as per the history of present illness. ASSESSMENT: 1. Leukocytosis with left shift, unknown etiology. 2. Same level fall at home with no loss of consciousness or traumatic injuries. 3. Altered mental status with mild confusion, most likely due to the fall. 4. Recent left arm fracture. 5. History of chronic obstructive pulmonary disease. 6. Diabetes mellitus, type 2. 7. Gastroesophageal reflux disease. 8. Mild dehydration with chronic renal insufficiency. 9. History of iron deficiency anemia. PLAN: We will place the patient in observation. I have restarted her home medications. Blood cultures were ordered in the Emergency Room and I have ordered a sputum culture and a urine culture. We will monitor the culture results as they become available. She had received Rocephin in the Emergency Room and due to her allergy to fluoroquinolones, I will continue the Rocephin until the cultures become available. I started sliding scale insulin as well as gave her Protonix for ulcer prophylaxis and Lovenox for DVT prophylaxis. Lab has been ordered for the morning. We will continue to monitor the patient closely and follow as needed. Dr. Solorzano is the collaborating physician and available for consultation. #[id number] [facility]
[2017-04-12] MEDS ORDERED: SODIUM CHLORIDE 0.9% (FLUSH) 10 ML SYG IV PRN (23:42)
[2017-04-12] MEDS ORDERED: ENOXAPARIN SODIUM 40 MG/0.4 ML SYG SUBCU SCH (23:45)
[2017-04-12] MEDS ORDERED: ALBUTEROL SULFATE 2.5 MG/3 ML VIAL NEB PRN (23:45)
[2017-04-12] MEDS ORDERED: PANTOPRAZOLE SODIUM IV 40 MG VIAL IV SCH (23:45)
[2017-04-12] MEDS: IV SET AND CAP CHANGE INJ INJ SCH (23:55)
--- NOTE | 2017-04-13 07:18 | RAD ---
Procedure: XR CHEST 1 VIEW Exam Date: 04/13/2017 Ordering Provider: DORIE DINH Clinical Indication: copd Comparison: 04/12/2017 Findings: Cardiac silhouette: Enlarged Pulmonary vasculature : Unremarkable Mediastinal contour: Normal Aortic contour: Tortuous Focal lung consolidation: Subtle right upper lobe opacities may represent developing pneumonia. Chronic interstitial prominence. Changes of COPD/emphysema. Pleural effusion: No large pleural effusions. Pneumothorax: None Acute bony or soft tissue abnormality: No acute osseous abnormalities. Hiatal hernia. Impression: 1. Subtle opacities in the right upper lobe may represent developing pneumonia. Electronically signed by: Frank Bates MD 04/13/2017 7:16 AM CDT
[2017-04-13] MEDS: IPRATROPIUM/ALBUTEROL 3 ML VIAL NEB SCH ×4 (08:25→20:25)
[2017-04-13] MEDS ORDERED: GLUCAGON INJ 1 MG VIAL SUBCU PRN (08:59)
[2017-04-13] MEDS ORDERED: DEXTROSE 50% 25 GM/50 ML SYG IV PRN (08:59)
[2017-04-13] MEDS ORDERED: levoFLOXacin 500MG IV 0 ML IVPB ONE (09:10)
[2017-04-13] MEDS ORDERED: SODIUM CHL 0.9% 50ML MIN-BAG+ 50 ML IVPB ONE ×2 (09:28→21:15)
[2017-04-13] MEDS ORDERED: cefTRIAXone SODIUM 1 GM VIAL ONE ×2 (09:28→21:15)
[2017-04-13] MEDS ORDERED: levoFLOXacin 500MG IV 500 MG in PREMIX BAG 1 BAG IVPB SCH (09:30)
[2017-04-13] MEDS: cefTRIAXone SODIUM 1 GM in SODIUM CHL 0.9% 50ML MIN-BAG+ 50 ML IVPB SCH ×2 (09:31→21:47)
--- NOTE | 2017-04-13 11:52 | PN ---
SUPERVISING PHYSICIAN: Scott Solorzano MD DATE: 04/13/17 SUBJECTIVE: The patient is sitting up in bed. She has no complaints of shortness of breath, coughing, or chest pain. OBJECTIVE: VITAL SIGNS: Afebrile. Heart rate 86, but has gone up as high as 96. Blood pressure 126/61. Respiratory rate 16. O2 saturation 96% on 2 liters nasal cannula. LUNGS: Essentially clear to auscultation bilaterally. She is somewhat diminished at the bases. CARDIAC: Regular rate and rhythm. ABDOMEN: Soft, nontender, nondistended. Bowel sounds are positive. EXTREMITIES: No cyanosis, clubbing or edema. NEUROLOGIC: Awake, alert and oriented times three. She continues to have mild episodes of confusion. LABORATORY: WBC have improved to 14.6. She still has a left shift with neutrophils 79.2%. Hemoglobin and hematocrit are stable at 10.5 and 31.8. Chemistries are basically within normal limits with the exception that her blood glucose is slightly elevated at 131 and serum total protein is 63 and albumin 3.1. TSH is normal at 2.2 and T4 is 9.09. Preliminary blood cultures are negative to date and there is urine culture pending as well as sputum culture pending. Chest x-ray this morning per radiologic interpretation shows subtle opacities in the right upper lobe which may represent developing pneumonia. All other labs and films have been reviewed via the EMR. ASSESSMENT: 1. Right upper lobe pneumonia, community acquired. Awaiting sputum culture results. 2. Leukocytosis with left shift, slightly improved, most likely etiology is community acquired pneumonia. 3. Same level fall at home with no loss of consciousness or traumatic injuries. 4. Altered mental status with mild confusion, with some improvement. 5. History of chronic obstructive pulmonary disease. 6. Diabetes mellitus, type 2. 7. Gastroesophageal reflux disease. 8. Mild dehydration with chronic renal insufficiency. 9. History of iron deficiency anemia. 10. Recent left arm fracture. PLAN: We will continue present supportive care. I will add azithromycin to her antibiotics for now and we will await her culture results. At this point, her lab values are improving. Clinically, she is improving, but we will watch her closely. Followup as needed. I will repeat some labs in the morning. Dr. Solorzano is the collaborating physician and available for consultation. #[id number] [facility]
[2017-04-13] MEDS: INSULIN LISPRO 100 UNITS/ML PEN SUBCU SCH ×3 (12:10→23:01)
[2017-04-13] MEDS ORDERED: SODIUM CHLORIDE 0.9% 250ML 250 ML ONE (12:11)
[2017-04-13] MEDS ORDERED: AZITHROMYCIN IV 500 MG VIAL IVPB ONE (12:11)
[2017-04-13] MEDS: AZITHROMYCIN IV 500 MG in SODIUM CHLORIDE 0.9% 250ML 250 ML IVPB SCH (12:17)
[2017-04-13] MEDS: HYDROcodone 5MG/APAP 325MG 1 EA TAB PO PRN (16:41)
[2017-04-13] MEDS ORDERED: MECLIZINE HCL 50 MG PO SCH (21:00)
[2017-04-13] MEDS ORDERED: MECLIZINE HCL 12.5 MG TAB ONE (21:15)
[2017-04-13] MEDS: MIRTAZAPINE 15 MG TAB PO SCH (21:48)
[2017-04-13] MEDS: ATORVASTATIN 20 MG TAB PO SCH (21:48)
[2017-04-13] MEDS: ENOXAPARIN SODIUM 40 MG/0.4 ML SYG SUBCU SCH (21:48)
[2017-04-13] MEDS: guaiFENesin ER TAB 600 MG TAB PO SCH (21:48)
[2017-04-13] MEDS: MONTELUKAST 10 MG TAB PO SCH (21:49)
[2017-04-13] MEDS: PANTOPRAZOLE SODIUM IV 40 MG VIAL IV SCH (21:49)
[2017-04-14] MEDS ORDERED: POTASSIUM CHLORIDE 10 MEQ TAB PO ONE ×2 (04:59→19:49)
[2017-04-14] MEDS ORDERED: NON-FORMULARY MEDICATION 1 EA MIS (Potassium Chloride [Micro-K] 10 MEQ) PO SCH (07:00)
--- NOTE | 2017-04-14 07:14 | RAD ---
Procedure: XR CHEST 1 VIEW Exam Date: 04/14/2017 Ordering Provider: DORIE DINH Clinical Indication: Pneumonia Comparison: 04/13/2017 Findings: Cardiomediastinal silhouette is stable. Focal lung consolidation: [Stable right upper lobe opacities which may represent pneumonia. Chronic interstitial prominence. Changes of COPD/emphysema. Pleural effusion: No large pleural effusions. Pneumothorax: None Acute bony or soft tissue abnormality: No acute osseous abnormalities. Hiatal hernia. Impression: 1. Stable opacities in the right upper lobe which may represent pneumonia. Electronically signed by: Frank Bates MD 04/14/2017 7:12 AM CDT
[2017-04-14] MEDS: INSULIN LISPRO 100 UNITS/ML PEN SUBCU SCH ×4 (07:24→21:00)
[2017-04-14] MEDS: IPRATROPIUM/ALBUTEROL 3 ML VIAL NEB SCH ×4 (08:40→19:30)
[2017-04-14] MEDS ORDERED: FLUTICASONE/SALMETEROL 250/50 14 PUFF/17 GM INH INH SCH (09:00)
[2017-04-14] MEDS ORDERED: SODIUM CHL 0.9% 50ML MIN-BAG+ 50 ML IVPB ONE ×2 (09:21→19:48)
[2017-04-14] MEDS ORDERED: cefTRIAXone SODIUM 1 GM VIAL ONE ×2 (09:22→19:49)
[2017-04-14] MEDS: LISINOPRIL 5 MG TAB PO SCH (09:29)
[2017-04-14] MEDS: FUROSEMIDE 40 MG TAB PO SCH (09:30)
[2017-04-14] MEDS: SITagliptin 50 MG TAB PO SCH (09:30)
[2017-04-14] MEDS: guaiFENesin ER TAB 600 MG TAB PO SCH ×2 (09:30→20:53)
[2017-04-14] MEDS: cefTRIAXone SODIUM 1 GM in SODIUM CHL 0.9% 50ML MIN-BAG+ 50 ML IVPB SCH ×2 (09:32→21:05)
[2017-04-14] MEDS ORDERED: SODIUM CHLORIDE 0.9% 250ML 250 ML ONE (12:28)
[2017-04-14] MEDS ORDERED: AZITHROMYCIN IV 500 MG VIAL IVPB ONE (12:29)
[2017-04-14] MEDS: AZITHROMYCIN IV 500 MG in SODIUM CHLORIDE 0.9% 250ML 250 ML IVPB SCH (12:34)
--- NOTE | 2017-04-14 13:34 | PN ---
SUPERVISING PHYSICIAN: Scott Solorzano MD DATE: 04/14/17 SUBJECTIVE: The patient is sitting up in her bed. She is talking to family members. She denies any shortness of breath, chest pain, nausea, vomiting or diarrhea. She says she is feeling much better than she did when she was admitted. OBJECTIVE: VITAL SIGNS: Afebrile. Heart rate 90. Blood pressure 148/71. Respiratory rate 20. O2 saturation 94% on 1 liter nasal cannula. LUNGS: Essentially clear to auscultation bilaterally, although the are somewhat diminished at the bases and there are occasional scattered rhonchi through the right middle and upper lobe. CARDIAC: Regular rate and rhythm. ABDOMEN: Soft, nondistended, nontender. Bowel sounds are positive. EXTREMITIES: She has a cast in place to her left arm. Bilateral lower extremities have no cyanosis, clubbing or edema. NEUROLOGIC: Awake, alert and oriented times three. LABORATORY: White count is normalized to 10.4. She still has a slight left shift with neutrophils at 79.5%. Hemoglobin and hematocrit have dropped to 8.8 and 26.6 from 10.5 and 31.8 yesterday. Blood sugars have run between 112 and 222. Her metabolic panel is basically within normal limits with the exception of calcium is 8. Preliminary sputum culture shows gram negative rods. Urine and blood cultures show no growth after 24 hours. Chest x-ray per radiologic interpretation shows stable opacities in the right upper lobe that may represent pneumonia. All other labs and films have been reviewed via the EMR. ASSESSMENT: 1. Right upper lobe pneumonia, most likely community acquired. Sputum cultures are pending with gram negative rods, presently on zithromax and rocephin. 2. Leukocytosis with left shift, now normalized white count to 10.4. 3. Altered mental status with mild confusion, mostly resolved. 4. Recent left arm fracture. 5. History of chronic obstructive pulmonary disease on chronic oxygen at home. 6. Diabetes mellitus, type 2. 7. Gastroesophageal reflux disease. 8. Mild dehydration with chronic renal insufficiency. 9. History of iron deficiency anemia. PLAN: We will continue present supportive care. We will monitor her cultures as they become available. Her mental status has improved greatly. The plan for right now is that we discharge her to [facility] in the next several days. I will repeat her lab in the morning. We will continue to monitor the patient closely and follow as needed. Dr. Solorzano is the collaborating physician and available for consultation. #[id number] [facility]
[2017-04-14] MEDS: INSULIN GLARGINE 20 UNIT SC SCH (16:55)
[2017-04-14] MEDS: HYDROcodone 5MG/APAP 325MG 1 EA TAB PO PRN (19:29)
[2017-04-14] MEDS ORDERED: MECLIZINE HCL 12.5 MG TAB ONE (19:48)
[2017-04-14] MEDS ORDERED: BIFIDOBACTERIUM INFANTIS 4 MG CAP ONE (19:49)
[2017-04-14] MEDS: BIFIDOBACTERIUM INFANTIS 4 MG CAP PO SCH (20:52)
[2017-04-14] MEDS: MECLIZINE HCL 12.5 MG TAB PO SCH (20:52)
[2017-04-14] MEDS: ATORVASTATIN 20 MG TAB PO SCH (20:52)
[2017-04-14] MEDS: MONTELUKAST 10 MG TAB PO SCH (20:53)
[2017-04-14] MEDS: ENOXAPARIN SODIUM 40 MG/0.4 ML SYG SUBCU SCH (20:53)
[2017-04-14] MEDS: MIRTAZAPINE 15 MG TAB PO SCH (20:53)
[2017-04-14] MEDS: PANTOPRAZOLE SODIUM IV 40 MG VIAL IV SCH (20:53)
[2017-04-15] MEDS: POTASSIUM CHLORIDE 10 MEQ TAB PO SCH (06:33)
[2017-04-15] MEDS ORDERED: SODIUM CHL 0.9% 50ML MIN-BAG+ 50 ML IVPB ONE ×2 (07:20→19:26)
[2017-04-15] MEDS ORDERED: cefTRIAXone SODIUM 1 GM VIAL ONE ×2 (07:20→19:27)
[2017-04-15] MEDS: FLUTICASONE/SALMETEROL 250/50 14 PUFF/17 GM INH INH SCH (07:27)
[2017-04-15] MEDS: IPRATROPIUM/ALBUTEROL 3 ML VIAL NEB SCH ×4 (07:27→20:18)
[2017-04-15] MEDS: INSULIN LISPRO 100 UNITS/ML PEN SUBCU SCH ×4 (08:24→21:08)
[2017-04-15] MEDS: INSULIN GLARGINE 20 UNIT SC SCH (08:26)
[2017-04-15] MEDS: LISINOPRIL 5 MG TAB PO SCH (08:26)
[2017-04-15] MEDS: guaiFENesin ER TAB 600 MG TAB PO SCH ×2 (08:27→20:32)
[2017-04-15] MEDS: SITagliptin 50 MG TAB PO SCH (08:27)
[2017-04-15] MEDS: FUROSEMIDE 40 MG TAB PO SCH (08:27)
[2017-04-15] MEDS: cefTRIAXone SODIUM 1 GM in SODIUM CHL 0.9% 50ML MIN-BAG+ 50 ML IVPB SCH ×2 (09:01→21:08)
--- NOTE | 2017-04-15 09:47 | PN ---
DATE: 04/15/17 SUBJECTIVE: The patient is sitting up in the bed. She states the Rocephin is burning in her right arm, but was dramatically improved by reducing the rate from 100 to 25 mL per hour infusion rate. She is still coughing, but less sputum production noted. Appetite is fairly good. She is able to talk in complete sentences. In many ways, she says she is better. She has not been walking since being in the hospital and this will need to be changed with increased activity starting immediately. OBJECTIVE: VITAL SIGNS: Afebrile. Blood pressure 134/76. Pulse oximetry 96% on room air. Weight 73.6 kg. GENERAL: The patient is awake and alert. Coloration is good. HEART: Regular, about 70 beats per minute. LUNGS: Diminished breath sounds, especially on the right lateral lung field. Otherwise, clearer today. ABDOMEN: Soft. EXTREMITIES: Left arm is in a splint and a sling to assist with its ongoing healing. LABORATORY: White count down to 8,900 with 79% neutrophils. Hemoglobin 8.7. Chemistries show potassium 4.2, CO2 26, BUN 16, creatinine 0.98, glucose 97 fasting, calcium 7.9. Culture of the sputum is now growing Klebsiella pneumoniae which showed pansensitivity except to ampicillin resistance. She is currently on Rocephin plus azithromycin for adequate coverage. Blood and urine cultures are negative. Chest x-ray yesterday showed persistence of the right upper lobe opacity suggesting a pneumonia with followup tomorrow. ASSESSMENT: 1. Acute right upper lobe pneumonia, probable community acquired with sputum cultures showing Klebsiella species, being treated with ceftriaxone and azithromycin. Today is day #2 of IV therapy with one additional day suggested before continuing with oral therapy. 2. Leukocytosis, showing improvement. 3. Altered mental status with mild confusion, resolved. 4. Recent lateral condyle fracture of the left humerus after falling from an elevated location at her home, now showing some healing. 5. History of chronic obstructive pulmonary disease, on chronic oxygen at home. 6. History of diabetes mellitus, type 2. 7. History of gastroesophageal reflux disease. 8. Mild chronic renal insufficiency, probably secondary to mild dehydration, showing improvement. 9. History of iron deficiency anemia. PLAN: Continue IV therapy at least until tomorrow to complete at least three days of IV parenteral therapy for underlying right upper lobe pneumonia. Recheck chest x-ray and lab in the morning. Physical therapy to consult to increase activity level and to see if we can strengthen her to the point that she will be less likely to fall in the future. Anticipate [facility] continued rehabilitation by tomorrow. Reevaluation at that time. #[id number] [facility]
--- NOTE | 2017-04-15 10:02 | PCM.CORE ---
Physician DVT/VTE - Nurse DVT Assessment & Total Each Risk Factor Represents 3 Points: Age over 75 years, Family Hx thrombosis, Medical PT with Hx of [place], CHF, Severe infection/sepsis DVT Assessment Score: 9 - 5 or more Very High Risk Treatments: Early Ambulation *, Sequential Compression Device Pharmacological: Enoxaparin 40mg SQ Daily
[2017-04-15] MEDS ORDERED: SODIUM CHLORIDE 0.9% 250ML 250 ML ONE (13:12)
[2017-04-15] MEDS ORDERED: AZITHROMYCIN IV 500 MG VIAL IVPB ONE (13:13)
[2017-04-15] MEDS: AZITHROMYCIN IV 500 MG in SODIUM CHLORIDE 0.9% 250ML 250 ML IVPB SCH (13:21)
[2017-04-15] MEDS: HYDROcodone 5MG/APAP 325MG 1 EA TAB PO PRN (20:07)
[2017-04-15] MEDS: ATORVASTATIN 20 MG TAB PO SCH (20:31)
[2017-04-15] MEDS: BIFIDOBACTERIUM INFANTIS 4 MG CAP PO SCH (20:31)
[2017-04-15] MEDS: MECLIZINE HCL 12.5 MG TAB PO SCH (20:31)
[2017-04-15] MEDS: MIRTAZAPINE 15 MG TAB PO SCH (20:32)
[2017-04-15] MEDS: MONTELUKAST 10 MG TAB PO SCH (20:32)
[2017-04-15] MEDS: PANTOPRAZOLE SODIUM IV 40 MG VIAL IV SCH (20:32)
[2017-04-15] MEDS: ENOXAPARIN SODIUM 40 MG/0.4 ML SYG SUBCU SCH (20:32)
[2017-04-15] MEDS: IV SET AND CAP CHANGE INJ INJ SCH (23:42)
[2017-04-16] MEDS: POTASSIUM CHLORIDE 10 MEQ TAB PO SCH (06:37)
--- NOTE | 2017-04-16 06:47 | RAD ---
Clinical History : RUL pneumonia , MAIN Exam : Portable AP view of the chest 04/16/2017 7:00 AM CDT Comparisons : none Findings : There is right lower lobe airspace disease with a small right pleural effusion. There is mild peribronchial thickening diffusely There is stable patchy right upper lobe and retrocardiac airspace disease. The heart is enlarged. The mediastinal contours are distorted by patient rotation to the left . The thoracic spine is age appropriate. The shoulders are unremarkable. Limited evaluation of the upper abdomen demonstrates no gross abnormalities. Impression: 1. Stable right pleural effusion with right basilar airspace disease. 2. Stable mild pulmonary edema with patchy right upper lobe airspace disease. Electronically signed by: Danisha August MD 04/16/2017 6:45 AM CDT
[2017-04-16] MEDS ORDERED: SODIUM CHL 0.9% 50ML MIN-BAG+ 50 ML IVPB ONE (08:01)
[2017-04-16] MEDS ORDERED: cefTRIAXone SODIUM 1 GM VIAL ONE (08:02)
[2017-04-16] MEDS: INSULIN LISPRO 100 UNITS/ML PEN SUBCU SCH (08:15)
[2017-04-16] MEDS: guaiFENesin ER TAB 600 MG TAB PO SCH (08:16)
[2017-04-16] MEDS: LISINOPRIL 5 MG TAB PO SCH (08:16)
[2017-04-16] MEDS: SITagliptin 50 MG TAB PO SCH (08:16)
[2017-04-16] MEDS: FUROSEMIDE 40 MG TAB PO SCH (08:17)
[2017-04-16] MEDS: INSULIN GLARGINE 20 UNIT SC SCH (08:17)
[2017-04-16] MEDS: IPRATROPIUM/ALBUTEROL 3 ML VIAL NEB SCH ×2 (08:28→11:30)
[2017-04-16] MEDS: FLUTICASONE/SALMETEROL 250/50 14 PUFF/17 GM INH INH SCH (08:28)
[2017-04-16] MEDS: cefTRIAXone SODIUM 1 GM in SODIUM CHL 0.9% 50ML MIN-BAG+ 50 ML IVPB SCH (09:50)
[2017-04-16 11:51] VITALS: BP 121/65; TEMP 97.8
[2017-04-16 13:57] VITALS: O2SAT 95
--- NOTE | 2017-04-17 16:46 | DS ---
DISCHARGE DIAGNOSES: 1. Acute right upper lobe pneumonia, probable community acquired with sputum cultures revealing Klebsiella species, being treated with ceftriaxone and azithromycin having completed 3 days of parenteral therapy and continued on oral therapy with Ceftin and Zithromycin. 2. Leukocytosis, showing significant steady improvement. 3. Altered mental status on admission with confusion showing resolution. 4. Recent fall with fracture of the lateral condyle of the left humerus occurring at home, showing radiographic improvement. 5. History of chronic obstructive pulmonary disease, on chronic oxygen at home. 6. History of diabetes mellitus, type 2. 7. History of gastroesophageal reflux disease. 8. Mild chronic renal insufficiency aggravated by dehydration, showing some improvement. 9. History of iron deficiency anemia with current blood count showing some diminishment as hydration is continued yet with a normocytic normochromic presentation. HISTORY OF PRESENT ILLNESS: This 76-year-old white female is admitted to the hospital from the Emergency Room being brought from home when she was found lying on the floor by her son. A level of confusion was evident. She was very weak and was acutely ill. She had broken her left arm a couple of weeks before from a fall and is being followed by orthopedic clinic, Dr. Barboza. In the Emergency Room, she had an elevated white count of 19,000 with left shift, hemoglobin 11.6. Her urine was positive for ketones and a sputum was collected and sent to the lab for culture. Radiographic findings of the chest did reveal evidence of right upper lobe pneumonia with chronic obstructive pulmonary disease evident. The patient was admitted to the hospital because of the seriousness of the underlying condition with confusion, falling, patient living at home part of the day by herself and requiring stabilization before worsening conditions could be evident. The patient will require ongoing rehabilitation and strengthening as well. LABORATORY: Initial white count was 19,100 with 83% neutrophils decreasing as therapy continued and her showing continued feeling better with white count down to 6,800 and 72% neutrophils at discharge. Hemoglobin dropped from 11.6 to 8.6 with a normocytic normochromic presentation. INR of 1.13. Chemistries showed sugars initially to be 133 and 96 fasting on discharge. Her potassium was 4.9, BUN 20 and creatinine 1.05. Calcium was 8.1. Liver enzymes were within normal limits. Beta natriuretic peptide 154, troponin 0, albumin 3.1, TSH of 2.2, T4 of 9. Urinalysis showed some ketonuria and some bilirubinuria. Blood cultures and urine cultures showed no growth while sputum culture did grown Klebsiella pneumonia expressing sensitivity across the spectrum except resistant to ampicillin. She was treated successfully initially with ceftriaxone and Zithromycin and changed over to a second generation cephalosporin, Ceftin, at the time of discharge. Chest x-rays did show a right upper lobe persistent infiltrative airspace disease with some right pleural effusion and basilar airspace disease evident as well. Chronic obstructive pulmonary disease noted. HOSPITAL COURSE: The patient's condition showed steady improvement with patient being fully alert and was very much ready to continue with outpatient therapy on the day of discharge. PLAN: The patient will participate with continued rehabilitation at [facility] over the next days so she can get stronger so she will be able to safely return home. Her sone who lives in [place] is willing to come and be with her in the evening while her caregiver would be with her during the day at the time that she gets strong enough to safely return home. She will continue with her regular diabetic diet. She will have followup with Dr. Montana in about 2 weeks or 10 days. Suggest at repeat chest x-ray with CBC and BNP by next Tuesday with results to Dr. Montana to ascertain further improvement clinically, radiographically and by lab parameters. Please refer to home medication list. Try physical therapy to help strengthen and help prevent falls while at [facility] until she can safely return home. Continue with oxygen and pulmonary hygiene with bronchodilator therapy to maintain pulse oximetry 91 to 93% by adjusting of the FI02. She will continue with her diabetic diet and return if not improving. #[id number] [facility]
== END 2017-04-16 13:09 | DRG 190 ==
LOC: ER 20:10 → MS 22:52 → OBSVTOIN 04-13 16:32
PROVIDERS: ADMIT Nurse Practitioner Acute Care; ATTEND Emergency Medicine
DX: J44.0 Chronic obstructive pulmonary disease with (acute) lower respiratory infection (principal); J15.0 Pneumonia due to Klebsiella pneumoniae; I13.0 Hypertensive heart and chronic kidney disease with heart failure and stage 1 through stage 4 chronic kidney disease, or unspecified chronic kidney disease; K21.9 Gastro-esophageal reflux disease without esophagitis; E11.22 Type 2 diabetes mellitus with diabetic chronic kidney disease; N18.9 Chronic kidney disease, unspecified; E86.0 Dehydration; D50.9 Iron deficiency anemia, unspecified; M19.90 Unspecified osteoarthritis, unspecified site; M81.0 Age-related osteoporosis without current pathological fracture; G40.909 Epilepsy, unspecified, not intractable, without status epilepticus; M06.9 Rheumatoid arthritis, unspecified; G25.81 Restless legs syndrome; I50.9 Heart failure, unspecified; S42.452D Displaced fracture of lateral condyle of left humerus, subsequent encounter for fracture with routine healing; Z16.11 Resistance to penicillins; Z96.643 Presence of artificial hip joint, bilateral; Z96.652 Presence of left artificial knee joint; Z88.8 Allergy status to other drugs, medicaments and biological substances; Z88.1 Allergy status to other antibiotic agents; Z88.5 Allergy status to narcotic agent; Z88.0 Allergy status to penicillin; Z88.7 Allergy status to serum and vaccine; Z91.048 Other nonmedicinal substance allergy status; Z99.81 Dependence on supplemental oxygen; Z79.51 Long term (current) use of inhaled steroids; Z79.891 Long term (current) use of opiate analgesic; Z79.52 Long term (current) use of systemic steroids; Z79.4 Long term (current) use of insulin; Z79.1 Long term (current) use of non-steroidal anti-inflammatories (NSAID); Z79.899 Other long term (current) drug therapy; Z66 Do not resuscitate

== ENCOUNTER → 2017-05-27 | Outpatient (CLI) | payer MEDICARE, MEDICAID ==
--- NOTE | 2017-05-29 15:37 | RAD ---
EXAM DESCRIPTION: Elbow,Left 3 Views CLINICAL HISTORY: 76 years Female, CLOSED FX OF LEFT HUMERUS COMPARISON: May 13, 2017 TECHNIQUE: 3 views FINDINGS: Partial interval healing distal humerus fracture involving the intercondylar and lateral supracondylar region. No other significant changes. Vascular calcifications are again noted. IMPRESSION: Partial interval healing intercondylar and supracondylar fracture distal humerus as noted above Electronically signed by: Zoran Celeste 05/29/2017 3:35 PM CDT
--- NOTE | 2017-05-29 15:39 | RAD ---
EXAM DESCRIPTION: Humerus,Left CLINICAL HISTORY: 76 years Female, CLOSED FX OF LEFT HUMERUS COMPARISON: May 13, 2017 TECHNIQUE: AP and lateral views FINDINGS: Significant glenohumeral osteoarthritis is again seen. The loose body within the region of the axillary pouch again noted. Once again, there is a fracture involving the distal humerus intercondylar and lateral supracondylar region with partial interval healing. Vascular calcifications. IMPRESSION: Partial interval healing distal humerus fracture as referenced above. No other significant changes. Electronically signed by: Zoran Cleeste 05/29/2017 3:38 PM CDT
== END | disposition home or self-care (01) ==
LOC: RAD 07:52
PROVIDERS: ATTEND Orthopaedic Surgery
DX: S42.302D Unspecified fracture of shaft of humerus, left arm, subsequent encounter for fracture with routine healing (principal)

== ENCOUNTER → 2017-07-06 | Outpatient (CLI) | payer MEDICARE, MEDICAID | END | disposition home or self-care (01) | LOC: NC 11:47 | PROVIDERS: ATTEND Family Medicine | DX: E11.9 Type 2 diabetes mellitus without complications (principal) ==

== ENCOUNTER 2017-07-21 17:16 | Observation (INO) | payer MEDICARE, MEDICAID ==
[2017-07-21] MEDS ORDERED: IPRATROPIUM/ALBUTEROL 3 ML VIAL NEB ONE (17:32)
[2017-07-21] MEDS ORDERED: CEFEPIME 1 GM in SODIUM CHLORIDE 0.9% 50ML 50 ML IVPB ONE (18:28)
[2017-07-21] MEDS ORDERED: AZITHROMYCIN IV 500 MG in SODIUM CHLORIDE 0.9% 250ML 250 ML IVPB ONE (18:28)
[2017-07-21] MEDS ORDERED: CEFEPIME 2 GM VIAL IVPB ONE (18:40)
[2017-07-21] MEDS ORDERED: SODIUM CHLORIDE 0.9% 50ML 50 ML ONE (18:41)
--- NOTE | 2017-07-21 19:08 | CT ---
EXAM DESCRIPTION: Head CLINICAL HISTORY: drowsy, fall, neck pain COMPARISON: None Available TECHNIQUE: Contiguous axial CT images of the head were obtained. Coronal and sagittal reconstructions were created from the axial data. This exam was performed according to our departmental dose-optimization program, which includes automated exposure control, adjustment of the mA and/or kV according to patient size and/or use of iterative reconstruction technique. FINDINGS: Poorly defined foci of decreased attenuation do not exert significant mass effect on surrounding structures and are likely sequela of prior insult, most likely on the basis of small vessel disease. There is no evidence of acute mass, mass effect, midline shift or hemorrhage. The ventricles and extra-axial CSF spaces are unremarkable. No acute abnormalities of the bones is seen. IMPRESSION: No acute intracranial abnormality. Electronically signed by: Luis Wahl 07/21/2017 7:07 PM [facility]
--- NOTE | 2017-07-21 19:11 | RAD ---
EXAM DESCRIPTION: Abdomen Series CLINICAL HISTORY: rigth lung rales, weakness COMPARISON: 09/21/2016 FINDINGS: Supine and upright images of the abdomen were submitted. Heart size is enlarged. There is no free air in the abdomen. There is no evidence of bowel obstruction. Surgical hardware appears intact. There is moderate rightward scoliosis. IMPRESSION: No acute abnormalities. Electronically signed by: Luis Wahl 07/21/2017 7:10 PM [facility]
[2017-07-21] MEDS ORDERED: AZITHROMYCIN IV 500 MG VIAL IVPB ONE (19:14)
[2017-07-21] MEDS ORDERED: SODIUM CHLORIDE 0.9% 250ML 250 ML ONE (19:15)
--- NOTE | 2017-07-21 19:16 | CT ---
EXAM DESCRIPTION: CT CERVICAL SPINE CLINICAL HISTORY: drowsy, fall, neck pain COMPARISON: None Available. TECHNIQUE: Contiguous axial images of the cervical spine were obtained followed by reconstruction images.This exam was performed according to our departmental dose-optimization program, which includes automated exposure control, adjustment of the mA and/or kV according to patient size and/or use of iterative reconstruction technique. FINDINGS: There are mildly enlarged mediastinal lymph nodes. Soft tissue attenuation in the trachea could be secretions but is nonspecific. There are degenerative changes of the right mandibular condylar head. There is significant osteophytic formation. More mild degenerative change involves the left TMJ. There is flattening of the right mandibular condylar fossa. Loss of height of C7 is of indeterminate acuity. It may be chronic. If more definitive imaging evaluation is desired, MRI is recommended. There is atelectasis at the pulmonary apices. There is no acute fracture or subluxation. The prevertebral soft tissues are within normal limits. IMPRESSION: Loss of height of C7 is of indeterminate acuity. No other evidence of acute fracture or subluxation. Electronically signed by: Luis Wahl 07/21/2017 7:15 PM [facility]
[2017-07-21] MEDS ORDERED: SODIUM CHLORIDE 0.9% 1000ML 500 ML IVS ONE (19:29)
[2017-07-21] MEDS ORDERED: methylPREDNISolone SODIUM SUC 40 MG/ML VIAL IV ONE (19:34)
--- NOTE | 2017-07-21 19:39 | ED.PDOC ---
History of Present Illness - General Chief Complaint: GI Problem Stated Complaint: vomiting,weakness Time Seen by Provider: 07/21/17 17:20 Source: patient Exam Limitations: no limitations - History of Present Illness Initial Comments: the patient is a 77-year-old female presenting to the emergency room secondary to several symptoms progressive over the last 3-4 days. The patient apparently went on a cruise and just got back yesterday. During the cruise she did not feel good. She also did not wear her oxygen when she is supposed to wear. Today she threw up a and got weak and fell on the concrete. She fell on her right side. She is not complaining of any new pain just weakness. She does have some what appears to be chronic neck pain to the right lateral neck. She also has chronic back pain. She does appear somewhat drowsy but she is oriented 4. She does take chronic pain medications. No definite fevers. She is having increasing cough and increasing shortness of breath for the last couple of days. Her last breathing treatment was yesterday. She does have a productive sputum. Timing/Duration: unsure Severity: moderate Improving Factors: nothing Worsening Factors: nothing Associated Symptoms: cough, loss of appetite, malaise, nausea/vomiting, shortness of breath, weakness Allergies/Adverse Reactions: Allergies Amitriptyline Allergy (Intermediate, Verified 04/02/17 00:47) Ciprofloxacin [From Cipro] Allergy (Intermediate, Verified 04/02/17 00:47) Codeine Allergy (Intermediate, Verified 04/02/17 00:47) Enalapril [From Vasotec] Allergy (Intermediate, Verified 04/02/17 00:47) Iodine Allergy (Intermediate, Verified 04/02/17 00:47) Naloxone [From Talwin Nx] Allergy (Intermediate, Verified 04/02/17 00:47) Penicillin G Allergy (Intermediate, Verified 04/02/17 00:47) Pentazocine [From Talwin Nx] Allergy (Intermediate, Verified 04/02/17 00:47) Tetanus Toxoid Allergy (Intermediate, Verified 04/02/17 00:47) Home Medications: Ambulatory Orders Atorvastatin Calcium [Lipitor] 20 mg PO BEDTIME 08/25/15 Clonazepam 0.5 mg PO BEDTIME PRN 08/25/15 Furosemide [Lasix] 40 mg PO DAILY 08/25/15 Lisinopril [Prinivil] 2.5 mg PO DAILY 08/25/15 Montelukast [Singulair] 10 mg PO BEDTIME 08/25/15 Mirtazapine [Remeron] 7.5 mg PO BEDTIME 12/08/15 Fluticasone/Salmeterol 250/50 [Advair 250/50 Diskus] 1 puff INH DAILY 05/19/16 Omeprazole Magnesium [Prilosec Otc] 20 mg PO BID #60 tab 05/20/16 Ibuprofen [Advil] 400 mg PO QAM PRN 10/09/16 SITagliptin [Januvia] 50 mg PO DAILY #30 tab 10/15/16 Benzonatate Perles [Tessalon Perles] 100 mg PO Q6H PRN 04/13/17 Guaifenesin [Mucinex] 600 mg PO BID 04/13/17 HYDROcodone 5MG/APAP 325MG [Cambridge 5/325] 1 ea PO Q6H PRN 04/13/17 Insulin Glargine [Toujeo Solostar] 20 unit SC DAILY 04/13/17 Ipratropium/Albuterol [Duoneb] 3 ml NEB Q6H PRN 04/13/17 Nitroglycerin [Nitrostat] 0.4 mg SL DAILY PRN 04/13/17 Potassium Chloride [Micro-K] 10 meq PO DAILY@0700 04/13/17 Promethazine HCl 25 mg PO Q6H PRN 04/13/17 Azithromycin Tab [Zithromax] 500 mg PO QD #10 tab 04/16/17 Bifidobacterium Infantis [Align] 4 mg PO DAILY #30 cap 04/16/17 Cefuroxime Axetil [Ceftin] 500 mg PO BID #14 tab 04/16/17 Meclizine HCl 25 mg PO BEDTIME #0 04/16/17 Review of Systems - Review of Systems Constitutional: States: malaise, weakness EENTM: States: no symptoms reported Respiratory: States: cough, short of breath, wheezing Cardiology: States: no symptoms reported, other - ear syncope Gastrointestinal/Abdominal: States: nausea, vomiting - no blood and no bile Genitourinary: States: no symptoms reported Musculoskeletal: States: see HPI - chronicmultiple neck and back complaints Skin: States: no symptoms reported Neurological: States: other - she is drowsy but she is oriented 4. She is able to answer questions appropriately. Past Medical History (General) - Patient Medical History Hx Seizures: No Hx Stroke: No Hx Dementia: Yes Hx Asthma: Yes Hx of COPD: Yes Hx Cardiac Disorders: Yes Hx Congestive Heart Failure: Yes Hx Pacemaker: No Hx Hypertension: Yes Hx Thyroid Disease: No Hx Diabetes: Yes Hx Gastroesophageal Reflux: Yes Hx Renal Disease: No Hx Cancer: No Hx of HIV: No Hx Hepatitis C: No Hx MRSA: Yes MRSA Source:: Blood Surgical History: appendectomy, cholecystectomy, Hysterectomy - Vaccination History Hx Tetanus, Diphtheria Vaccination: Yes Hx Influenza Vaccination: Yes Hx Pneumococcal Vaccination: Yes - Social History Hx Tobacco Use: Yes Hx Chewing Tobacco Use: No Hx Alcohol Use: No Hx Substance Use: No Hx Substance Use Treatment: No Hx Depression: No Hx Physical Abuse: No Hx Emotional Abuse: No Hx Suspected Abuse: No - Female History Patient : No Family Medical History - Family History Father Hx Family Asthma: Yes Hx Family Congestive Heart Failure: Yes Hx Family Hypertension: Yes Hx Family Stroke: Yes Hx Cardiac Disease: Yes Hx Family Diabetes: No Hx Family Cancer: No Mother Family History: Unknown Living Status: Hx Family Asthma: Yes Hx Family Congestive Heart Failure: Yes Hx Family Hypertension: Yes Hx Family Stroke: No Hx Cardiac Disease: Yes Hx Family Diabetes: Yes Hx Family Cancer: No Physical Exam - Physical Exam General Appearance: Comfortable, No apparent distress, Other - rowsy Eye Exam: bilateral normal - pupils are 3 mm bilaterally and mildly reactive. Ears, Nose, Throat: hearing grossly normal, normal ENT inspection, normal pharynx Neck: other - the patient has tenderness to the right lateral aspect of her neck adjacent to C3-C5. No obviously palpable deformity. No bruising. No pain over the spinous processes. Respiratory: chest non-tender, respiratory distress - mild, accessory muscle use - ild to moderate, rales - ight upper lobe, rhonchi - right upper lobe, wheezing - ight upper lobe Cardiovascular/Chest: normal peripheral pulses, no edema, tachycardia - borderline sinus Peripheral Pulses: radial,right: 2+, radial,left: 2+, dorsalis pedis,right: 2+, dorsalis pedis,left: 2+ Gastrointestinal/Abdominal: non tender, soft Rectal Exam: deferred Back Exam: no vertebral tenderness, other - unable to locate her fentanyl patch Extremity: normal range of motion, non-tender, no calf tenderness, normal capillary refill, pedal edema - trace bilaterally Neurologic: anatomy professor II-XII nml as tested, alert - drowsy, oriented x 3 Skin Exam: normal color Comments: Vital Signs - 24 hr 07/21/17 07/21/17 07/21/17 17:26 18:07 18:53 Temperature 99 F Pulse Rate 88 Pulse Rate [ 105 H 88 Left Brachial] Respiratory 20 20 20 Rate Blood Pressure 162/77 154/81 [Left Arm] O2 Sat by Pulse 94 L 96 97 Oximetry Progress - Progress Progress: 07/21/17 19:45 the patient is a 77-year-old female presenting to the emergency room secondary to several days of progressive symptoms. The patient does appear to be having a COPD exacerbation with a possible small right upper lobe pneumonia. It is possible that this may be aspiration from her previous vomiting earlier in the day. The patient is receiving a small IV fluid bolus. She is being placed on cefepime and azithromycin. Blood cultures have been performed. She is back on her oxygen. She is receiving a DuoNeb treatment. She is also receiving a small dose of Solu-Medrol IV. She has not run up or been nauseated since her arrival here. Head CT and CT scan of the cervical spine show no definitive acute pathology. Questionable abnormality in the trachea should be reevaluated at a later date or sooner if symptoms indicate. Admit for further management. Oxygen levels are improving with supplemental oxygen and the breathing treatment. - Results/Orders Results/Orders: Laboratory Tests 07/21/17 07/21/17 07/21/17 17:35 17:48 17:48 WBC 14.1 H RBC 4.28 Hgb 12.6 Hct 38.2 MCV 89.3 MCH 29.4 MCHC 33.0 RDW 13.2 Plt Count 248 MPV 7.6 Absolute Neuts (auto) 11.50 H Absolute Lymphs (auto) 1.80 Absolute Monos (auto) 0.70 Absolute Eos (auto) 0.10 Absolute Basos (auto) 0.10 Neutrophils % 81.6 H Lymphocytes % 12.5 L Monocytes % 4.7 Eosinophils % 0.7 L Basophils % 0.5 PT INR PTT (SP) Sodium Potassium Chloride Carbon Dioxide Anion Gap BUN Creatinine BUN/Creatinine Ratio POC Glucose 155 H Random Glucose Serum Osmolality Calcium Magnesium Total Bilirubin AST ALT Alkaline Phosphatase Creatine Kinase 29 CK-MB (CK-2) 1.1 CK-MB (CK-2) % Not Reportable Troponin I 0.02 B-Natriuretic Peptide 43.6 Serum Total Protein Albumin Globulin Albumin/Globulin Ratio Lipase 07/21/17 07/21/17 17:48 17:48 WBC RBC Hgb Hct MCV MCH MCHC RDW Plt Count MPV Absolute Neuts (auto) Absolute Lymphs (auto) Absolute Monos (auto) Absolute Eos (auto) Absolute Basos (auto) Neutrophils % Lymphocytes % Monocytes % Eosinophils % Basophils % PT 12.8 H INR 1.130 PTT (SP) 28.0 Sodium 139 Potassium 4.1 Chloride 108 Carbon Dioxide 23 Anion Gap 12.1 BUN 21 H Creatinine 0.93 BUN/Creatinine Ratio 22.6 H POC Glucose Random Glucose 164 H Serum Osmolality 284.2 Calcium 9.1 Magnesium 1.6 L Total Bilirubin 0.3 AST 17 ALT 12 Alkaline Phosphatase 86 Creatine Kinase CK-MB (CK-2) CK-MB (CK-2) % Troponin I B-Natriuretic Peptide Serum Total Protein 7.6 Albumin 3.5 Globulin 4.1 H Albumin/Globulin Ratio 0.9 L Lipase 19 L urinalysis and influenza are still pending. EKG shows a mild sinus tachycardia at [address] segment changes concerning for ischemia. Several PACs. Mild left atrial dilation. Normal QT interval. Head CT shows no acute pathology. She does have multiple chronic changes. CT scan of the cervical spine shows questionable soft tissue attenuation in the trachea versus secretions. She does have significant DJD of both temporomandibular joints. There is some loss of height at C7 which is indeterminate as to age. She does have some atelectasis at the pulmonary apices with questionable small infiltrate in the right apex per my evaluation. Chest x-ray shows cardiomegaly. Abdominal x-ray shows no evidence of obstruction or free air. Hardware from previous surgery is noted. Departure - Departure Clinical Impression: Acute exacerbation of chronic obstructive pulmonary disease (COPD), Fall at home Right upper lobe pneumonia Qualifiers: Pneumonia type: due to unspecified organism Qualified Code(s): J18.1 - Lobar pneumonia, unspecified organism Disposition: Admit Patient Referrals: Kai Montana MD [Primary Care Provider] - 1-2 Weeks Home Medications: Ambulatory Orders Atorvastatin Calcium [Lipitor] 20 mg PO BEDTIME 08/25/15 Clonazepam 0.5 mg PO BEDTIME PRN 08/25/15 Furosemide [Lasix] 40 mg PO DAILY 08/25/15 Lisinopril [Prinivil] 2.5 mg PO DAILY 08/25/15 Montelukast [Singulair] 10 mg PO BEDTIME 08/25/15 Mirtazapine [Remeron] 7.5 mg PO BEDTIME 12/08/15 Fluticasone/Salmeterol 250/50 [Advair 250/50 Diskus] 1 puff INH DAILY 05/19/16 Omeprazole Magnesium [Prilosec Otc] 20 mg PO BID #60 tab 05/20/16 Ibuprofen [Advil] 400 mg PO QAM PRN 10/09/16 SITagliptin [Januvia] 50 mg PO DAILY #30 tab 10/15/16 Benzonatate Perles [Tessalon Perles] 100 mg PO Q6H PRN 04/13/17 Guaifenesin [Mucinex] 600 mg PO BID 04/13/17 HYDROcodone 5MG/APAP 325MG [[place] 5/325] 1 ea PO Q6H PRN 04/13/17 Insulin Glargine [Toujeo Solostar] 20 unit SC DAILY 04/13/17 Ipratropium/Albuterol [Duoneb] 3 ml NEB Q6H PRN 04/13/17 Nitroglycerin [Nitrostat] 0.4 mg SL DAILY PRN 04/13/17 Potassium Chloride [Micro-K] 10 meq PO DAILY@0700 04/13/17 Promethazine HCl 25 mg PO Q6H PRN 04/13/17 Azithromycin Tab [Zithromax] 500 mg PO QD #10 tab 04/16/17 Bifidobacterium Infantis [Align] 4 mg PO DAILY #30 cap 04/16/17 Cefuroxime Axetil [Ceftin] 500 mg PO BID #14 tab 04/16/17 Meclizine HCl 25 mg PO BEDTIME #0 04/16/17 Decision To Admit - Decistion To Admit Decision to Admit Reason: Medical Nature Decision to Admit Date: 07/21/17 Decision to Admit Time: 19:48
[2017-07-21] MEDS ORDERED: ACETAMINOPHEN 325 MG TAB PO PRN (20:36)
[2017-07-21] MEDS ORDERED: DEXTROSE 50% 25 GM/50 ML SYG IV PRN (20:36)
[2017-07-21] MEDS ORDERED: MAGNESIUM HYDROXIDE 30 ML UD PO PRN (20:36)
[2017-07-21] MEDS ORDERED: HYDROcodone 5MG/APAP 325MG 1 EA TAB PO PRN (20:36)
[2017-07-21] MEDS ORDERED: SODIUM CHLORIDE 0.9% (FLUSH) 10 ML SYG IV PRN (20:36)
[2017-07-21] MEDS ORDERED: LEVALBUTEROL NEBS 1.25 MG/3 ML VIAL INH PRN (20:36)
[2017-07-21] MEDS ORDERED: GLUCAGON INJ 1 MG VIAL SUBCU PRN (20:36)
[2017-07-21] MEDS ORDERED: ONDANSETRON INJ 4 MG/2 ML VIAL IV PRN (20:36)
[2017-07-21] MEDS ORDERED: BENZONATATE PERLES 100 MG CAP PO PRN (20:43)
[2017-07-21] MEDS ORDERED: IV SET AND CAP CHANGE INJ INJ SCH (21:00)
--- NOTE | 2017-07-21 21:45 | HP ---
HISTORY OF PRESENT ILLNESS: This 77-year-old, white female is placed in the hospital overnight for observation after falling at home. She does not know the reason why she fell, but she apparently fell backwards and to the side with some injury to her head and neck. No specific loss of consciousness. She did not trip. She uses oxygen at 2 liters per minute at home, but has not been using it continuously at home over the last few days. Her appetite is diminished. Her weight is stable. In the Emergency Room, her physician felt that she might be having an early right upper lobe pneumonia after examination. The patient has recently returned from a week long cruise with her son on a ship out of [place]. She had an electric chair that was able to get her around the ship. She is now trying to recuperate from the activities oft the trip. She is somewhat short of breath. In the Emergency Room, she was found to have a white count elevated at 14,000 with moderate hypoxia. History of chronic obstructive pulmonary disease with a mild exacerbation in progress. She required CT exam of the spine. The patient is placed in the hospital overnight for observation for reevaluation in the morning and further studies to delineate some of the abnormalities, especially the possible mass found in the trachea under the sternal notch. PAST MEDICAL HISTORY: 1. Chronic obstructive pulmonary disease with history of asthma aggravated and contributed to by secondhand smoke. 2. Diabetes mellitus, type 2. 3. Hypertension. 4. Degenerative joint disease. 5. Osteoporosis. 6. History of seizure disorder with possible pseudoseizures present. 7. Rheumatoid arthritis. 8. Gastroesophageal reflux disease. 9. History of congestive heart failure with an unknown etiology with last echocardiogram in January of 2013 with an ejection fraction of 65%. 10. History of iron deficiency anemia. 11. History of diverticulosis. 12. History of restless leg syndrome. PAST SURGICAL HISTORY: 1. Hip replacements. 2. Knee replacements. 3. Hysterectomy. 4. Bladder suspension. 5. Breast reduction. 6. Hernia repair. 7. Back surgery. 8. Tonsillectomy. 9. Appendectomy. 10. Cholecystectomy. 11. Right cataract removal. CURRENT MEDICATIONS: Please refer to nursing notes. ALLERGIES: PLEASE REFER TO CHART. SOCIAL HISTORY: The patient is . She lives at home with her brothers. She denies smoking, but has been around secondhand smoke most of her life. REVIEW OF SYSTEMS: GENERAL: Weight is fairly stable. No fever or chills recently. HEENT: No hearing or visual disturbances. LUNGS: Shortness of breath evident upon exertion. CARDIOVASCULAR: No palpitations or chest pains. GASTROINTESTINAL: Decreased appetite. Some nausea and vomiting yesterday noted. No blood in the stools. EXTREMITIES: Some mild pedal edema when sitting upright for extended periods of time. NEUROLOGIC: No acute weakness, though generally somewhat weak. PHYSICAL EXAMINATION: VITAL SIGNS: Afebrile with temperature 99. Pulse 105. Blood pressure 162/77. Pulse oximetry 94% on room air. Weight stated at 63.5 kg, but no weighed. GENERAL: The patient is sleeping, but is easily arousable and is able to carry on a good conversation. She has good history, but is initially a little sleepy headed requiring some time to awaken completed. HEENT: Unremarkable. NECK: Supple with no adenopathy. LUNGS: Diminished breath sounds with a few rhonchi, especially in the upper lung khan bilaterally. CARDIOVASCULAR: Heart tones somewhat distant. Otherwise, within normal limits. ABDOMEN: Soft with some tenderness, especially in the right lower quadrant. No organomegaly, masses. EXTREMITIES: Trace of edema bilaterally. Fairly good range of motion. NEUROLOGIC: Generally weak in condition, but no focal weakness evident. LABORATORY: White count elevated at 14,100 with 82% neutrophils, hemoglobin 12.6 with it being 8.6 three months ago. INR 1.13. Chemistries show potassium 4.1, BUN 21, creatinine 0.93, glucose 164, liver enzymes unremarkable except magnesium 1.6, albumin 3.5. Troponin is 0.02, beta natriuretic peptide 43.6. Urinalysis pending. Blood cultures pending. Chest x-ray shows chronic obstructive pulmonary disease with some atelectatic changes, especially in the apices. There is an abnormal mass effect and lesion possibly in the trachea just beneath the sternal notch of the sternum with further investigation in the morning. CT head shows no acute findings. The neck does show what appears to be an old injury to the C7 vertebra. ASSESSMENT: 1. Acute fall at home from upright position of undetermined reason and with injury to the neck and the head with no specific abnormalities otherwise evident, for observation tonight. 2. Possible early right upper lobe pneumonia, to be observed with a repeat film in the morning after initiation of blood cultures and parenteral antibiotics and observe closely. 3. Leukocytosis with white count over 14,000. 4. Hypoxia. 5. Chronic obstructive pulmonary disease with an acute exacerbation. 6. Chronic cervical spine pain with an acute strain from the fall. 7. Diabetes mellitus, type 2, taking insulin dosings in the morning, to be reevaluated for in the morning. 8. History of hypertension. 9. Coronary artery disease with two myocardial infarctions in the past. 10. Possible tracheal mass beneath the sternal notch with further investigation to continue. PLAN: The patient is scheduled to be observed tonight with routine bronchial dilation and respiratory care. She is given a dose of Solu-Medrol initially and continue the prednisone. Blood cultures are taken and started on antibiotics because of the possibility of early pneumonia not fully appreciated on chest x-ray yet with followup in the morning. Will suggest ultrasound of the soft tissue of the neck to evaluate the suprasternal notch to check on a mass in the trachea in the morning. Switch from cefepime given in the Emergency Room to Rocephin and azithromycin in the hospital. Ambulation study to evaluate the need of oxygen. Observe closely and consider home when stable with reevaluation in the morning. #[id number] [facility]
[2017-07-21] MEDS: IPRATROPIUM/ALBUTEROL 3 ML VIAL INH SCH (22:35)
[2017-07-21] MEDS: SODIUM CHLORIDE 0.9% 1000ML 1,000 ML IVS PRN (22:39)
[2017-07-21] MEDS: INSULIN LISPRO 100 UNITS/ML PEN SUBCU SCH (23:30)
[2017-07-21] MEDS: AZITHROMYCIN 250 MG TAB PO SCH (23:34)
[2017-07-22] MEDS ORDERED: cefTRIAXone SODIUM 1 GM VIAL ONE ×2 (06:17→15:43)
[2017-07-22] MEDS ORDERED: SODIUM CHL 0.9% 100ML MINI-BAG 0 ML IVPB ONE (06:17)
[2017-07-22] MEDS: cefTRIAXone SODIUM 1 GM in SODIUM CHL 0.9% 50ML MIN-BAG+ 50 ML IVPB SCH ×2 (06:25→18:20)
[2017-07-22] MEDS ORDERED: SODIUM CHLORIDE 0.9% 50ML 50 ML ONE (06:27)
[2017-07-22] MEDS: INSULIN LISPRO 100 UNITS/ML PEN SUBCU SCH ×4 (07:45→21:09)
[2017-07-22] MEDS: predniSONE 10 MG TAB PO SCH (08:42)
[2017-07-22] MEDS: BIFIDOBACTERIUM INFANTIS 4 MG CAP PO SCH (08:42)
[2017-07-22] MEDS: AZITHROMYCIN 250 MG TAB PO SCH (08:42)
[2017-07-22] MEDS: IPRATROPIUM/ALBUTEROL 3 ML VIAL INH SCH ×4 (08:49→20:20)
--- NOTE | 2017-07-22 09:12 | RAD ---
EXAM DESCRIPTION: XR CHEST 2 VIEWS CLINICAL HISTORY: COPD. Pneumonia COMPARISON: 04/16/2017 TECHNIQUE: PA/lateral FINDINGS: Cardiomegaly. Large hiatal hernia. Prominent central pulmonary arteries suggest pulmonary arterial hypertension. There is some pleural parenchymal scarring at the right lung apex. Mild peribronchial thickening. No pulmonary edema, alveolar consolidation or effusion. No pneumothorax Multilevel degenerative change in the spine. Severe osteopenia. No diagnostic acute bony abnormality IMPRESSION: No focal infiltrate Mild peribronchial thickening which may relate to COPD as given in the clinical history Electronically signed by: Jarod Veloz MD 07/22/2017 9:[address] [facility]
[2017-07-22] MEDS: SODIUM CHLORIDE 0.9% 1000ML 1,000 ML IVS PRN (10:58)
--- NOTE | 2017-07-22 11:22 | US ---
EXAM DESCRIPTION: Soft Tissue,Head/Neck: ULTRASOUND. CLINICAL HISTORY: observe for mass in trachea beneath sternal notch COMPARISON: None Available. TECHNIQUE: Transcutaneous scanning: Two-dimensional and Doppler modes. FINDINGS: Patient scanned in the region of interest around the trachea. Internal trachea obscured by normal air attenuation/shadows. External trachea contour unremarkable. No discrete solid mass or cyst. No parenchymal edema or large calcification. IMPRESSION: Normal contour of external trachea and normal appearance of paratracheal soft tissues. Electronically signed by: Luis Barrera MD 07/22/2017 11:21 AM [employer]
[2017-07-22] MEDS: FLUTICASONE/SALMETEROL 250/50 14 PUFF/17 GM INH INH SCH (11:30)
[2017-07-22] MEDS ORDERED: NON-FORMULARY MEDICATION 1 EA MIS (Potassium Chloride [Micro-K] 10 MEQ) PO SCH (15:30)
[2017-07-22] MEDS ORDERED: FUROSEMIDE INJ 20 MG/2 ML VIAL ONE (15:42)
[2017-07-22] MEDS ORDERED: SODIUM CHL 0.9% 50ML MIN-BAG+ 50 ML IVPB ONE (15:42)
[2017-07-22] MEDS ORDERED: POTASSIUM CHLORIDE 10 MEQ TAB PO ONE (15:43)
--- NOTE | 2017-07-22 16:23 | PN ---
SUPERVISING PHYSICIAN: Scott Solorzano MD DATE: 07/22/17 SUBJECTIVE: The patient is lying in her hospital bed. She has no complaints of shortness of breath, nausea, vomiting, diarrhea or chest pain. She does complain of low back pain and shortness of breath if she increases her activity. OBJECTIVE: VITAL SIGNS: She is afebrile. Heart rate 84, blood pressure 158/77, respiratory rate 24. 02 saturation is 98%. RESPIRATORY: Diminished air sounds throughout but no audible wheezing. CARDIAC: Regular rate and rhythm. ABDOMEN: Soft, non-tender, nondistended. Bowel sounds are positive. EXTREMITIES: No cyanosis, clubbing, or edema. NEUROLOGICAL: She is awake, alert and oriented x3. LABORATORY: Her white count has normalized to 9.6, hemoglobin 12.7, hematocrit 38.9, platelet count 242,000 with neutrophils at 86.9%. Electrolytes are basically within normal limits with the exception of BUN which is 19. Blood sugars have been running between 149 and 257. Her preliminary blood cultures are negative to day. Soft tissue ultrasound of her neck shows normal contour of external trachea and normal appearance of paratracheal soft tissues. Chest x-ray shows no focal infiltrate with mild parabrachial thickening, may be related to chronic obstructive pulmonary disease. All other labs and films have been reviewed vis the EMR. ASSESSMENT: 1. Acute fall at home from upright position of undetermined reason and with injury to her neck and head with no specific abnormalities otherwise evident. 2. Chronic obstructive pulmonary disease with exacerbation with negative blood cultures and presently on parenteral antibiotics, 3. Leukocytosis that has now resolved. . 4. Hypoxia. 5. Chronic cervical spine pain with an acute strain from a fall at home. . 6. Diabetes mellitus, type 2. 7. Hypertension. 8. Coronary artery disease with two myocardial infarctions in the past. 9. Questionable tracheal mass in the neck with a negative soft tissue sonogram. PLAN: We will continue present supportive care. I am having the patient evaluated by the [facility] which may assist in her strengthening with physical therapy to get back to her previous level of function. We will continue her present care and treatment of her chronic obstructive pulmonary disease and will await the results of culture. Continue encouragement of good bronchial hygiene. Her home medications have been restarted. There may need to be a further workup on her questionable tracheal mass, although there was no evidence of any issues per sonogram so we will leave that all up to Dr. Montana. Hopefully she can be discharged tomorrow to the [facility] for strengthening and conditioning. We will continue to monitor the patient closely and followup as needed. Dr. Solorzano is the collaborating physician available for consultation. #[id number] [facility]
[2017-07-22] MEDS: FUROSEMIDE 40 MG TAB PO SCH ×2 (16:29→16:30)
[2017-07-22] MEDS ORDERED: MECLIZINE HCL 12.5 MG TAB ONE (20:10)
[2017-07-22] MEDS: MONTELUKAST 10 MG TAB PO SCH (21:00)
[2017-07-22] MEDS: guaiFENesin ER TAB 600 MG TAB PO SCH (21:00)
[2017-07-22] MEDS ORDERED: MECLIZINE HCL 25 MG PO SCH (21:00)
[2017-07-22] MEDS: MIRTAZAPINE 15 MG TAB PO SCH (21:01)
[2017-07-22] MEDS: SODIUM CHLORIDE 0.9% (FLUSH) 10 ML SYG IV SCH (21:02)
[2017-07-22] MEDS: ATORVASTATIN 20 MG TAB PO SCH (21:02)
[2017-07-23] MEDS ORDERED: SODIUM CHL 0.9% 50ML MIN-BAG+ 50 ML IVPB ONE ×2 (05:32→18:04)
[2017-07-23] MEDS ORDERED: cefTRIAXone SODIUM 1 GM VIAL ONE ×2 (05:33→18:05)
[2017-07-23] MEDS: cefTRIAXone SODIUM 1 GM in SODIUM CHL 0.9% 50ML MIN-BAG+ 50 ML IVPB SCH ×2 (06:28→18:10)
[2017-07-23] MEDS: IPRATROPIUM/ALBUTEROL 3 ML VIAL INH SCH ×4 (08:31→20:29)
[2017-07-23] MEDS: FLUTICASONE/SALMETEROL 250/50 14 PUFF/17 GM INH INH SCH (08:31)
[2017-07-23] MEDS: BIFIDOBACTERIUM INFANTIS 4 MG CAP PO SCH (09:39)
[2017-07-23] MEDS: FUROSEMIDE 40 MG TAB PO SCH (09:40)
[2017-07-23] MEDS: SITagliptin 50 MG TAB PO SCH (09:40)
[2017-07-23] MEDS: predniSONE 10 MG TAB PO SCH (09:40)
[2017-07-23] MEDS: AZITHROMYCIN 250 MG TAB PO SCH (09:41)
[2017-07-23] MEDS: SODIUM CHLORIDE 0.9% (FLUSH) 10 ML SYG IV SCH ×2 (09:41→20:40)
[2017-07-23] MEDS: guaiFENesin ER TAB 600 MG TAB PO SCH ×2 (10:38→20:32)
[2017-07-23] MEDS: INSULIN LISPRO 100 UNITS/ML PEN SUBCU SCH ×4 (12:07→20:40)
[2017-07-23] MEDS ORDERED: INSULIN DETEMIR 100 UNITS/ML PEN SUBCU ONE ×2 (12:10→13:37)
[2017-07-23] MEDS: INSULIN GLARGINE 20 UNIT SC SCH (13:36)
--- NOTE | 2017-07-23 17:42 | PN ---
DATE: 07/23/17 SUPERVISING PHYSICIAN: Scott Solorzano M.D. SUBJECTIVE: The patient [facility] and got quite anxious because she did not have any of her clothes here and her family was out of town. She became very agitated and wanted to stay an extra night before she goes to the rehab facility in [place]. She denied any chest pain, shortness of breath, nausea or vomiting. OBJECTIVE: VITAL SIGNS: She is afebrile, heart rate 77, blood pressure 166/76, respiratory rate 16, O2 sat is 95%. RESPIRATORY: Essentially clear to auscultation bilaterally. CARDIAC: Regular rate and rhythm. NEUROLOGIC: She is awake, alert and oriented times three. LABORATORY: White count is elevated up to 11,400 and hemoglobin has dropped 2.5 grams since admission from 12.6 to 9.1 and hematocrit is 27, neutrophils are 80.9%. Sodium 144, potassium 3.7, chloride 117, carbon dioxide 23, BUN 19, creatinine 0.82. All other labs and films have been reviewed via the EMR. ASSESSMENT: 1. Acute fall at home from upright position of undetermined reason and with injury to her neck and head with no specific abnormalities otherwise evident. 2. Chronic obstructive pulmonary disease with exacerbation with negative blood cultures and presently on parenteral antibiotics, 3. Leukocytosis that has now resolved. . 4. Hypoxia. 5. Chronic cervical spine pain with an acute strain from a fall at home. . 6. Diabetes mellitus, type 2. 7. Hypertension. 8. Coronary artery disease with two myocardial infarctions in the past. 9. Questionable tracheal mass in the neck with a negative soft tissue sonogram. 10. Hyperchloremia. 11. Anemia with a drop in hemoglobin of 2.5 grams since admission. PLAN: We will keep the patient an additional night and plan to [facility]. She has a history of chronic anemia and so I will recheck her hemoglobin in the morning to make sure it is stabilized before she is transferred. Will also recheck her chloride. Otherwise we will continue the present supportive care. Monitor her closely and followup as needed. Dr. Solorzano is the collaborating physician available for consultation. #[id number] [facility]
[2017-07-23] MEDS: CEFDINIR 300 MG CAP PO SCH (18:56)
[2017-07-23] MEDS: MONTELUKAST 10 MG TAB PO SCH (20:29)
[2017-07-23] MEDS: ATORVASTATIN 20 MG TAB PO SCH (20:29)
[2017-07-23] MEDS: MECLIZINE HCL 12.5 MG TAB PO SCH (20:29)
[2017-07-23] MEDS: MIRTAZAPINE 15 MG TAB PO SCH (20:29)
[2017-07-24] MEDS ORDERED: POTASSIUM CHLORIDE 10 MEQ TAB PO SCH (07:30)
[2017-07-24] MEDS: FLUTICASONE/SALMETEROL 250/50 14 PUFF/17 GM INH INH SCH (08:19)
[2017-07-24] MEDS: IPRATROPIUM/ALBUTEROL 3 ML VIAL INH SCH ×2 (08:19→15:50)
[2017-07-24] MEDS: AZITHROMYCIN 250 MG TAB PO SCH (10:56)
[2017-07-24] MEDS: guaiFENesin ER TAB 600 MG TAB PO SCH (10:56)
[2017-07-24] MEDS: SITagliptin 50 MG TAB PO SCH (10:56)
[2017-07-24] MEDS: BIFIDOBACTERIUM INFANTIS 4 MG CAP PO SCH (10:56)
[2017-07-24] MEDS: predniSONE 10 MG TAB PO SCH (10:56)
[2017-07-24] MEDS: FUROSEMIDE 40 MG TAB PO SCH (10:57)
[2017-07-24] MEDS: INSULIN LISPRO 100 UNITS/ML PEN SUBCU SCH ×2 (10:58→11:34)
[2017-07-24] MEDS: CEFDINIR 300 MG CAP PO SCH (11:11)
--- NOTE | 2017-07-24 11:18 | DS ---
SUPERVISING PHYSICIAN: Scott Solorzano M.D. DISCHARGE DIAGNOSIS: 1. Acute fall at home from upright position of undetermined reason and with injury to her neck and head with no specific abnormalities otherwise evident. 2. Chronic obstructive pulmonary disease with exacerbation with negative blood cultures and presently on parenteral antibiotics, 3. Leukocytosis that has now resolved. . 4. Hypoxia. 5. Chronic cervical spine pain with an acute strain from a fall at home. . 6. Diabetes mellitus, type 2. 7. Hypertension. 8. Coronary artery disease with two myocardial infarctions in the past. 9. Questionable tracheal mass in the neck with a negative soft tissue sonogram. HISTORY OF PRESENT ILLNESS: This is a 77 year-old white female who was admitted to the hospital for Observation after she fell at home. She is not sure why she fell, but she apparently fell backwards and to the side with some injury to her head and neck. No specific loss of consciousness. She did not trip. She uses oxygen at 2 liters per minute at home but had not been using it continuously over the last few days. Her appetite had diminished but her weight is stable. In the Emergency Room, it was evaluated that she may have a right upper lobe pneumonia. She had recently returned from a cruise from [place]. Her electric chair was able to get her around the ship and now she was trying to recuperate at home after the activities of the trip. She was short of breath and in the Emergency Room she was found to have an elevated white count of 14,000 with moderate hypoxia. She has a history of chronic obstructive pulmonary disease with a mild exacerbation in progress. Her CT exam of the spine was negative except for an old injury to the C7 vertebrae. Chest x-ray showed chronic obstructive pulmonary disease with some atelectatic changes, especially in the apices. There was an abnormal mass in the trachea region that is a soft tissue attenuation in the trachea that could be secretions but is nonspecific. A soft tissue ultrasound was done of that area and showed a normal contour of external trachea and normal appearance of paratracheal soft tissues. CT of the head was normal. HOSPITAL COURSE: She was placed on Rocephin and Azithromycin as well as breathing treatments for her exacerbation of her COPD. Her condition has improved but she is still quite weak. Her mobility as well as strength is less than what her normal functioning is. [facility] has accepted the patient for strengthening and physical therapy at their rehab facility. Her condition has normalized here in the hospital and she will be [facility]. DISCHARGE PLAN: The patient will be discharged to [facility] for strengthening and conditioning per their physical therapy. She is to continue on 3 additional days of Azithromycin 250 mg to complete her antibiotic regimen. She is to resume her previous diet as well as her home medications. After discharge from [facility], she needs to followup with Dr. Montana, her primary care physician, in 1 to 2 weeks after discharge. DISCHARGE MEDICATIONS: 1. Singulair. 2. Clonazepam. 3. Lipitor. 4. Remeron. 5. Advair. 6. Januvia. 7. Promethazine. 8. Micro-K. 9. DuoNeb. 10. Tessalon Perles. 11. Mucinex. 12. Toujeo insulin. 13. Hydrocodone. 14. Align. 15. Meclizine. 16. Furosemide. 17. Cyanocobalamin. 18. Prilosec. 19. Azithromycin 250 mg tabs times 2 additional doses[address] 20[address] Cefdin[address] Solorzano is the collaborating physician available for consultation. #[id number] [facility]
[2017-07-24] MEDS: INSULIN GLARGINE 20 UNIT SC SCH (11:34)
[2017-07-24] MEDS: SODIUM CHLORIDE 0.9% (FLUSH) 10 ML SYG IV SCH (11:34)
[2017-07-24] MEDS ORDERED: MECLIZINE HCL 12.5 MG TAB PO ONE (12:09)
[2017-07-24] MEDS: MECLIZINE HCL 12.5 MG TAB PO SCH (12:13)
[2017-07-24 14:30] VITALS: BP 184/80; TEMP 98.3; O2SAT 96
== END 2017-07-24 15:29 ==
LOC: ER 17:16 → MS 21:44
PROVIDERS: ADMIT Emergency Medicine; ATTEND Nurse Practitioner Acute Care
DX: J44.1 Chronic obstructive pulmonary disease with (acute) exacerbation (principal); S16.1XXA Strain of muscle, fascia and tendon at neck level, initial encounter; S09.8XXA Other specified injuries of head, initial encounter; D72.829 Elevated white blood cell count, unspecified; R09.02 Hypoxemia; G89.29 Other chronic pain; E11.9 Type 2 diabetes mellitus without complications; I10 Essential (primary) hypertension; I25.10 Atherosclerotic heart disease of native coronary artery without angina pectoris; I25.2 Old myocardial infarction; E87.8 Other disorders of electrolyte and fluid balance, not elsewhere classified; D64.9 Anemia, unspecified; I49.1 Atrial premature depolarization; M81.0 Age-related osteoporosis without current pathological fracture; M06.9 Rheumatoid arthritis, unspecified; K21.9 Gastro-esophageal reflux disease without esophagitis; G25.81 Restless legs syndrome; W18.39XA Other fall on same level, initial encounter; Y92.008 Other place in unspecified non-institutional (private) residence as the place of occurrence of the external cause; Z66 Do not resuscitate; Z99.81 Dependence on supplemental oxygen; Z79.51 Long term (current) use of inhaled steroids; Z79.891 Long term (current) use of opiate analgesic; Z79.4 Long term (current) use of insulin; Z79.899 Other long term (current) drug therapy; Z88.1 Allergy status to other antibiotic agents; Z88.6 Allergy status to analgesic agent; Z88.3 Allergy status to other anti-infective agents; Z88.8 Allergy status to other drugs, medicaments and biological substances; Z91.048 Other nonmedicinal substance allergy status
CPT/HCPCS: 36415 ×6; 36416 ×11; 70450; 71020; 72125; 74020; 76536; 80048 ×3; 80053; 81001; 82550; 82553; 82948 ×12; 83690; 83735; 83880 ×2; 84484; 85025 ×4; 85610; 85730; 87040 ×2; 87070; 87502; 93005; 94640 ×13; 94664; 94760 ×9; 96365; 96366 ×2; 96367 ×2; 96372 ×2; 96375; 96376; 99284; A4216 ×2; G0378; J0456; J0692; J0696 ×4; J1030; J1815 ×2; J7030 ×3; J7050 ×4; J7512 ×3; J7620 ×11; L0120; Q0144 ×3

== ENCOUNTER → 2017-09-15 | Outpatient (CLI) | payer MEDICARE, MEDICAID | LOC: NC 11:38 | PROVIDERS: ATTEND Family Medicine | DX: R30.0 Dysuria (principal) ==

== ENCOUNTER → 2018-01-11 | Outpatient (CLI) | payer MEDICARE, OTHER | LOC: GMAB 14:35 | PROVIDERS: ATTEND Family Medicine | DX: I10 Essential (primary) hypertension (principal) ==

== ENCOUNTER 2018-04-25 17:00 | Inpatient (IN) | payer MEDICARE, OTHER ==
[2018-04-25] MEDS ORDERED: IPRATROPIUM/ALBUTEROL 3 ML VIAL NEB ONE (17:38)
--- NOTE | 2018-04-25 17:48 | RAD ---
EXAM DESCRIPTION: Chest,2 Views CLINICAL HISTORY: cough COMPARISON: Previous study July 22, 2017 TECHNIQUE: PA/lateral FINDINGS: Cardiac silhouette is enlarged which may be cardiomegaly or pericardial effusion. Large hiatal hernia behind the heart is seen. Nodular infiltrative changes are seen in the left perihilar and left lower lobe region as well as left upper lobe. CT may be helpful to differentiate masses from pneumonic infiltrate. Right lung appears relatively clear with some perihilar and pericardiac scarring or bronchiectasis. Severe arthritic changes of the left shoulder. IMPRESSION: Nodules or nodular infiltrate in the left lung. See above. Large heart without congestive failure. Large hiatal hernia. Electronically signed by: Apollo Butt MD 04/25/2018 5:47 PM CDT
--- NOTE | 2018-04-25 18:07 | ED.PDOC ---
History of Present Illness - General Time Seen by Provider: 04/25/18 17:17 Source: patient Exam Limitations: no limitations - History of Present Illness Initial Comments: Patient presents from the [facility] with increasing dyspnea. She has a history of asthma and takes daily nebulizer treatments, however, she has developed an increasing cough. She says it is not productive. She does not know if she has had a fever. She has a history of frequent pneumonia. Denies chest pain. No other complaints. Timing/Duration: getting worse Severity: moderate Improving Factors: nothing Worsening Factors: nothing Associated Symptoms: denies symptoms Allergies/Adverse Reactions: Allergies Amitriptyline Allergy (Intermediate, Verified 04/02/17 00:47) Ciprofloxacin [From Cipro] Allergy (Intermediate, Verified 04/02/17 00:47) Codeine Allergy (Intermediate, Verified 04/02/17 00:47) Enalapril [From Vasotec] Allergy (Intermediate, Verified 04/02/17 00:47) Iodine Allergy (Intermediate, Verified 04/02/17 00:47) Naloxone [From Talwin Nx] Allergy (Intermediate, Verified 04/02/17 00:47) Penicillin G Allergy (Intermediate, Verified 04/02/17 00:47) Pentazocine [From Talwin Nx] Allergy (Intermediate, Verified 04/02/17 00:47) Tetanus Toxoid Allergy (Intermediate, Verified 04/02/17 00:47) Morphine Allergy (Unknown, Verified 07/22/17 01:57) Unknown Home Medications: Ambulatory Orders Atorvastatin Calcium [Lipitor] 20 mg PO BEDTIME 08/25/15 Clonazepam 0.5 mg PO BEDTIME PRN 08/25/15 Montelukast [Singulair] 10 mg PO DAILY 08/25/15 Mirtazapine [Remeron] 7.5 mg PO BEDTIME 12/08/15 Fluticasone/Salmeterol 250/50 [Advair 250/50 Diskus] 1 puff INH DAILY 05/19/16 SITagliptin [Januvia] 50 mg PO DAILY #30 tab 10/15/16 Benzonatate Perles [Tessalon Perles] 100 mg PO PRN PRN 04/13/17 Guaifenesin [Mucinex] 600 mg PO BID 04/13/17 HYDROcodone 5MG/APAP 325MG [[place] 5/325] 1 ea PO Q6H PRN 04/13/17 Insulin Glargine [Toujeo Solostar] 20 unit SC DAILY 04/13/17 Ipratropium/Albuterol [Duoneb] 3 ml NEB Q6H PRN 04/13/17 Potassium Chloride [Micro-K] 10 meq PO DAILY 04/13/17 Promethazine HCl 25 mg PO Q6H PRN 04/13/17 Bifidobacterium Infantis [Align] 4 mg PO DAILY #30 cap 04/16/17 Meclizine HCl 25 mg PO BEDTIME #0 04/16/17 Cyanocobalamin [B12] 1,000 mcg PO MONTHLY 07/22/17 Furosemide Tab [Lasix Tab] 20 mg PO DAILY 07/22/17 Omeprazole Magnesium [Prilosec Otc] 20 mg PO BID 07/22/17 Azithromycin [Zithromax] 500 mg PO DAILY 2 Days tab 07/24/17 Cefdinir [Omnicef] 300 mg PO DAILY #20 cap 07/24/17 Review of Systems - Review of Systems Constitutional: States: no symptoms reported EENTM: States: no symptoms reported Respiratory: States: see HPI Cardiology: States: no symptoms reported, other - has history of AMI Gastrointestinal/Abdominal: States: no symptoms reported Genitourinary: States: no symptoms reported Musculoskeletal: States: no symptoms reported Skin: States: no symptoms reported Neurological: States: no symptoms reported Endocrine: States: no symptoms reported Hematologic/Lymphatic: States: no symptoms reported Past Medical History (General) - Patient Medical History Hx Seizures: No Hx Stroke: No Hx Dementia: Yes Hx Asthma: Yes Hx of COPD: Yes Hx Cardiac Disorders: Yes Hx Congestive Heart Failure: Yes Hx Pacemaker: No Hx Hypertension: Yes Hx Thyroid Disease: No Hx Diabetes: No Hx Gastroesophageal Reflux: Yes Hx Renal Disease: No Hx Cancer: No Hx of HIV: No Hx Hepatitis C: No Hx MRSA: Yes - Last 4 MRSA Swabs have been negative MRSA Source:: Blood - Vaccination History Hx Tetanus, Diphtheria Vaccination: Yes Hx Influenza Vaccination: Yes Hx Pneumococcal Vaccination: Yes - Social History Hx Tobacco Use: Yes Hx Chewing Tobacco Use: No Hx Alcohol Use: No Hx Substance Use: No Hx Substance Use Treatment: No Hx Depression: No Hx Physical Abuse: No Hx Emotional Abuse: No Hx Suspected Abuse: No - Female History Patient : No Family Medical History - Family History Father Hx Family Asthma: Yes Hx Family Congestive Heart Failure: Yes Hx Family Hypertension: Yes Hx Family Stroke: Yes Hx Cardiac Disease: Yes Hx Family Diabetes: No Hx Family Cancer: No Mother Family History: Unknown Living Status: Hx Family Asthma: Yes Hx Family Congestive Heart Failure: Yes Hx Family Hypertension: Yes Hx Family Stroke: No Hx Cardiac Disease: Yes Hx Family Diabetes: Yes Hx Family Cancer: No Physical Exam - Physical Exam General Appearance: Alert Eye Exam: bilateral normal Ears, Nose, Throat: normal ENT inspection Neck: non-tender, full range of motion, supple Respiratory: rhonchi - all lung khan Cardiovascular/Chest: normal peripheral pulses, regular rate, rhythm, no edema Gastrointestinal/Abdominal: normal bowel sounds, non tender, soft Back Exam: normal inspection, no CVA tenderness Extremity: normal range of motion, non-tender, normal inspection Neurologic: insurance risk surveyor II-XII nml as tested, no motor/sensory deficits, alert Skin Exam: normal color Lymphatic: no adenopathy Progress - Progress Progress: 04/25/18 19:32 Laboratory Tests 04/25/18 04/25/18 04/25/18 17:23 17:55 17:55 WBC RBC Hgb Hct MCV MCH MCHC RDW Plt Count MPV Absolute Neuts (auto) Absolute Lymphs (auto) Absolute Monos (auto) Absolute Eos (auto) Neutrophils % Neutrophils % (Manual) Lymphocytes % Lymphocytes % (Manual) Monocytes % Monocytes % (Manual) Eosinophils % Basophils % Band Neutrophils Platelet Estimate Normal RBC Morphology Sodium 137 Potassium 4.4 Chloride 105 Carbon Dioxide 21 Anion Gap 15.4 BUN 57 H Creatinine 1.72 H BUN/Creatinine Ratio 33.1 H POC Glucose 175 H Random Glucose 181 H Serum Osmolality 294.2 Lactic Acid Calcium 8.5 Total Bilirubin 0.8 AST 15 ALT 9 L Alkaline Phosphatase 87 Creatine Kinase 31 CK-MB (CK-2) 1.8 CK-MB (CK-2) % Not Reportable Troponin I < 0.02 B-Natriuretic Peptide 37.2 Serum Total Protein 7.6 Albumin 3.3 Globulin 4.3 H Albumin/Globulin Ratio 0.8 L 04/25/18 04/25/18 17:55 18:26 WBC 25.2 H* RBC 3.54 L Hgb 10.5 L Hct 32.5 L MCV 91.9 MCH 29.6 MCHC 32.3 L RDW 13.7 Plt Count 216 MPV 8.3 Absolute Neuts (auto) Not Reportable Absolute Lymphs (auto) Not Reportable Absolute Monos (auto) Not Reportable Absolute Eos (auto) Not Reportable Neutrophils % Not Reportable Neutrophils % (Manual) 83.0 H Lymphocytes % Not Reportable Lymphocytes % (Manual) 4.0 Monocytes % Not Reportable Monocytes % (Manual) 2.0 Eosinophils % Not Reportable Basophils % Not Reportable Band Neutrophils 11.0 H* Platelet Estimate Normal Normal RBC Morphology Normal rbc morph Sodium Potassium Chloride Carbon Dioxide Anion Gap BUN Creatinine BUN/Creatinine Ratio POC Glucose Random Glucose Serum Osmolality Lactic Acid 1.4 Calcium Total Bilirubin AST ALT Alkaline Phosphatase Creatine Kinase CK-MB (CK-2) CK-MB (CK-2) % Troponin I B-Natriuretic Peptide Serum Total Protein Albumin Globulin Albumin/Globulin Ratio Patient has left sided pneumonia. Lactic acid 1.4. Given Rocephin 1 gram IV x one and Azithromycin 500 mg po x one. Admitted to inpatient. Departure - Departure Clinical Impression: Pneumonia Disposition: Admit Patient Condition: Fair Diet: diabetic diet Activity: as per physical therapy Referrals: Kai Montana MD [Active Staff] - 1-2 Weeks Home Medications: Ambulatory Orders Atorvastatin Calcium [Lipitor] 20 mg PO BEDTIME 08/25/15 Clonazepam 0.5 mg PO BEDTIME PRN 08/25/15 Montelukast [Singulair] 10 mg PO DAILY 08/25/15 Mirtazapine [Remeron] 7.5 mg PO BEDTIME 12/08/15 Fluticasone/Salmeterol 250/50 [Advair 250/50 Diskus] 1 puff INH DAILY 05/19/16 SITagliptin [Januvia] 50 mg PO DAILY #30 tab 10/15/16 Benzonatate Perles [Tessalon Perles] 100 mg PO PRN PRN 04/13/17 Guaifenesin [Mucinex] 600 mg PO BID 04/13/17 HYDROcodone 5MG/APAP 325MG [[place] 5/325] 1 ea PO Q6H PRN 04/13/17 Insulin Glargine [Toujeo Solostar] 20 unit SC DAILY 04/13/17 Ipratropium/Albuterol [Duoneb] 3 ml NEB Q6H PRN 04/13/17 Potassium Chloride [Micro-K] 10 meq PO DAILY 04/13/17 Promethazine HCl 25 mg PO Q6H PRN 04/13/17 Bifidobacterium Infantis [Align] 4 mg PO DAILY #30 cap 04/16/17 Meclizine HCl 25 mg PO BEDTIME #0 04/16/17 Cyanocobalamin [B12] 1,000 mcg PO MONTHLY 07/22/17 Furosemide Tab [Lasix Tab] 20 mg PO DAILY 07/22/17 Omeprazole Magnesium [Prilosec Otc] 20 mg PO BID 07/22/17 Azithromycin [Zithromax] 500 mg PO DAILY 2 Days tab 07/24/17 Cefdinir [Omnicef] 300 mg PO DAILY #20 cap 07/24/17
[2018-04-25] MEDS ORDERED: AZITHROMYCIN 250 MG TAB PO ONE (18:13)
[2018-04-25] MEDS ORDERED: cefTRIAXone SODIUM 1 GM in SODIUM CHL 0.9% 50ML MIN-BAG+ 50 ML IVPB ONE (18:13)
[2018-04-25] MEDS ORDERED: SODIUM CHL 0.9% 50ML MIN-BAG+ 50 ML IVPB ONE ×2 (18:23→22:25)
[2018-04-25] MEDS ORDERED: cefTRIAXone SODIUM 1 GM VIAL ONE ×2 (18:23→22:25)
[2018-04-25] MEDS ORDERED: SODIUM CHLORIDE 0.9% 1000ML 1,000 ML IVS ONE (18:56)
--- NOTE | 2018-04-25 20:37 | HP ---
SUPERVISING PHYSICIAN: Scott Solorzano MD CHIEF COMPLAINT: Cough, shortness of breath. HISTORY OF PRESENT ILLNESS: Ms. Ramirez is a 77-year-old, female that resides at home. She was brought to the Emergency Room today by EMS complaining of increasing shortness of breath. She has a longstanding history of asthma and utilizes a nebulizer treatment on a day to day basis as well as oxygen at night. She noticed she had developed a cough that had worsened over the last several days but unable to appreciated any sputum. She is unsure if she has had any fever. She also had several admissions in the past year for pneumonia. At time of admission she denied any chest pain and laboratory studies showed that she had a significant leukocytosis of 25,100 with a left shift and 11% bands. Her troponin was less than 0.02 and lactic acid was 1.14. BNP was normal at 37.2. Chest x-ray was then completed and per radiology interpretation there was not of nodules and nodular infiltrates in the left lung. On initial presentation to the Emergency Room she was running a fever of 100.6 with heart rate 95, blood pressure 116/75. Saturation 93% on nasal cannula on 3 liters at rest with initial respirations at 26 and after breathing treatments and oxygen her respirations had settled down at 18. With the clinical finding of leukocytosis, increasing shortness of breath, history of chronic obstructive pulmonary disease and multiple hospitalizations for pneumonia and findings on radiographic studies concerning for developing pneumonia, blood cultures were collected and she was started on treatment for community acquired pneumonia initially with Rocephin and azithromycin. She is now going to be admitted to the medical/surgical floor for further treatment of pneumonia. She is admitted in stable condition. PAST MEDICAL HISTORY: 1. Chronic obstructive pulmonary disease with history with a longstanding history of asthma exacerbated and contributed to by secondhand smoke. 2. Diabetes mellitus, type 2. 3. Hypertension. 4. Degenerative joint disease. 5. Osteoporosis. 6. History of seizure disorder with possible pseudoseizures in the past. 7. Rheumatoid arthritis. 8. Gastroesophageal reflux disease. 9. History of congestive heart failure with an unknown etiology with last echocardiogram in January of 2013 with an ejection fraction of 65%. 10. History of iron deficiency anemia. 11. History of diverticulosis. 12. History of restless leg syndrome. PAST SURGICAL HISTORY: 1. Hip replacements. 2. Knee replacements. 3. Hysterectomy. 4. Bladder suspension. 5. Breast reduction. 6. Hernia repair. 7. Back surgery. 8. Tonsillectomy. 9. Appendectomy. 10. Cholecystectomy. 11. Cataract removals, CURRENT MEDICATIONS: Please see an updated list that has been verified in nurses notes as they were not available at time of admission. . ALLERGIES: 1. Amitriptyline. 2. Ciprofloxacin. 3. Codeine. 4. Vasotec. 5. Iodine. 6. Naloxone. 7. Penicillin G. 8. Pentazocine. 9. Tetanus toxoid. 10. Morphine. FAMILY HISTORY: Noncontributory. SOCIAL HISTORY: The patient lives in [place], [place] with brothers. She is . She denies ever smoking but has been around secondhand smoke most of her life. She denies any alcohol or illicit drug use. REVIEW OF SYSTEMS: GENERAL: Denies any fever or chills at home and no changes in weight. HEENT: No hearing or visual disturbances. No headaches, nasal congestion, sore throat, earaches. RESPIRATORY: As noted in history of present illness. Increasing and worsening shortness of breath. The patient is 02 dependent. She did have increased shortness of breath, wheezing and a worsening cough. CARDIOVASCULAR: No reported chest pains, palpitations or syncopal episodes. GENITOURINARY: Denies any history of dysuria, hematuria, polyuria or other urinary symptoms. EXTREMITIES: She does have some lower extremity at times but denies any significant changes. NEUROLOGIC: No ataxia, syncopal episodes or seizures or other neurological deficits. PHYSICAL EXAMINATION: VITAL SIGNS: Temperature 100.6 in the Emergency Department, pulse 95, blood pressure 116/75, respirations 26, saturation 93% on nasal cannula at rest. After treatments, respiratory effort was 18 and saturation was 96% on nasal cannula. Admission weight 66.6 kg. GENERAL: On admission to the medical/surgical floor, the patient is very pleasant and appears to be in no acute distress, resting comfortably. She is alert. HEENT: Tympanic membranes are clear bilaterally. Oropharynx is pink and moist without any lesions. NECK: Supple, non-tender with full range of motion. No jugular venous distention. CHEST: Rhonchi noted throughout all lung khan with diminished sounds throughout the lower bases along with some inspiratory and expiratory wheezing in the bilateral upper apices, more prominent on the left than the right but no obvious increase in respiratory effort. CARDIOVASCULAR: Regular rate and rhythm without any notable murmurs, rubs, or gallops. ABDOMEN: Soft, non-tender, positive bowel sound. EXTREMITIES: No cyanosis, clubbing, or edema. NEUROLOGIC: Cranial nerves II through XII grossly intact. No motor or sensory deficits were noted. She was alert and oriented x3. INTEGUMENT: Skin normal, pink and dry with no lesions or rashes noted. LABORATORY: White count initially of 25,200 with hemoglobin 10.5, hematocrit 32.5 with platelet count 216,000. Differential did show a left shit with 11% bands. Chemistries showed normal electrolytes with potassium 4.0, BUN elevated at 57, creatinine 1.72. Lactic acid 1.4. Liver functions showed to be within normal limits. Troponin less than 0.02. BNP 37. Urinalysis pending. MICROBIOLOGY: Sputum culture pending. Blood cultures pending. RADIOLOGY: Chest x-ray initially in the Emergency Department per radiology interpretation showed nodules and nodular infiltrates in the left lung. This was followed up with a CT of the chest without contrast after admission to the medical/surgical floor and per radiology interpretation there is note of lung consolidation most consistent with multifocal pneumonia with consolidations noted in the left superior and inferior lingular lobes, additional patchy infiltrates were also seen in bilateral lung bases. There was note of a stable right lower lobe 5 mm lung nodule. No pleural effusions, no pneumothorax. The mediastinum was limited in evaluation and the hilar and mediastinal soft tissues as this was un-enhancing study but there was note of a large hiatal hernia. Please see that final report for full details. ASSESSMENT: 1. Acute exacerbation of chronic obstructive pulmonary disease with multifocal pneumonia, more prominent on the left and notable bibasilar presentation, community acquired. 2. Leukocytosis with fever secondary to #1. 3. Renal insufficiency with baseline creatinine around 0.8 to 1.0. This is more likely prerenal azotemic state secondary to developing pneumonia. 4. Diabetes mellitus type 2 on insulin therapy. 5. Hypertension. 6. Chronic degenerative disk disease. 7. Osteoporosis. 8. Past history of seizure disorder with possible pseudoseizures. 9. History of rheumatoid arthritis. 10. Gastroesophageal reflux disease. 11. History of congestive heart failure, although etiology is unknown with last echocardiogram noted to be in January 2013 with ejection fraction of 65%. 12. Iron-deficiency anemia. 13. History of diverticulosis. 14. History of restless leg syndrome. PLAN: The patient is going to be admitted to the medical/surgical floor for ongoing treatment of multifocal pneumonia community acquired as noted on CT findings with patient showing a leukocytosis. There is concern for early sepsis , although her lactic acid was normal at 1.4. Antibiotics were initiated in the Emergency Room after blood cultures were completed and will continue with one gram of Rocephin every 12 hours as well as Azithromycin 500 IV daily. She will be on DVT prophylaxis as per protocol. She will be on insulin sliding scale as per protocol. In regards to the wheezing and increasing shortness of breath, we will start with some steroids with Solu-Medrol 125 mg initially and monitor closely and continue as needed. Again, as she is diabetic we will start with just an initial dose of 125, she was having a significant amount of wheezing and shortness of breath. She will need close monitoring of her blood sugars, she is on sliding scale. She is on Januvia p.o. 15 mg as well as Toujeo 20 units subcu daily. We will resume those medications as soon as they have been confirmed in the medical record and again, monitor blood sugars closely. I have not continued her Solu-Medrol awaiting further clinical assessment given that she is diabetic and has a significant degree of pneumonia. No additional findings on patient. We will resume her home medications once those have been updated and verified. She will be on a diabetic ADA 1800 calorie diet. Activity will be increased as tolerated. Initial assessment with assistance. We will await a sputum culture and follow her blood cultures and treat accordingly. Will anticipate her length of stay to be at least 2 to 3 days. She will need aggressive pulmonary hygiene along with chest percussive therapy. Once she is clinically stable, she certainly can be discharged home to continue with outpatient management and to followup with her primary care physician, Dr. Tapia. #[id number] [facility]
[2018-04-25] MEDS ORDERED: DEXTROSE 50% 25 GM/50 ML SYG IV PRN (22:05)
[2018-04-25] MEDS ORDERED: ONDANSETRON INJ 4 MG/2 ML VIAL IV PRN (22:05)
[2018-04-25] MEDS ORDERED: GLUCAGON INJ 1 MG VIAL SUBCU PRN (22:05)
[2018-04-25] MEDS ORDERED: ACETAMINOPHEN 325 MG TAB PO PRN (22:05)
[2018-04-25] MEDS ORDERED: ALBUTEROL SULFATE 2.5 MG/3 ML VIAL NEB PRN (22:05)
[2018-04-25] MEDS ORDERED: KCL 20 MEQ/NS 1,000 ML IVS PRN (22:13)
[2018-04-25] MEDS ORDERED: methylPREDNISolone SODIUM SUC 125 MG/2 ML VIAL IV ONE (22:15)
[2018-04-25] MEDS ORDERED: HYDROcodone 5MG/APAP 325MG 1 EA TAB PO ONE (22:21)
[2018-04-25] MEDS ORDERED: KCL 20 MEQ/NS 1,000 ML IVS ONE (22:25)
[2018-04-25] MEDS: SODIUM CHLORIDE 0.9% (FLUSH) 10 ML SYG IV PRN (22:43)
[2018-04-25] MEDS: cefTRIAXone SODIUM 1 GM in SODIUM CHL 0.9% 50ML MIN-BAG+ 50 ML IVPB SCH (22:45)
[2018-04-25] MEDS: IV SET AND CAP CHANGE INJ INJ SCH (23:02)
[2018-04-25] MEDS: ENOXAPARIN SODIUM 30 MG/0.3 ML SYG SUBCU SCH (23:02)
--- NOTE | 2018-04-25 23:06 | CT ---
EXAM DESCRIPTION: Chest w/o Contrast CLINICAL HISTORY:77 years Female, follow up Chest xray Comparison: Correlation with recent chest x-ray performed earlier same day at 5:[address] chest 12/10/2010 TECHNIQUE: Contiguous axial CT images of the chest without administration of IV contrast. Sagittal and coronal reformats were obtained.This exam was performed according to our departmental dose-optimization program, which includes automated exposure control, adjustment of the mA and/or kV according to patient size and/or use of iterative reconstruction technique. FINDINGS: Lungs: Focal lung consolidates are seen in the left superior and inferior lingular lobe. Additional patchy opacities are seen at the bilateral lung bases. Stable right lower lobe 5 mm lung nodule (series 4 image 70). No pleural effusion. No pneumothorax. Heart: No pericardial effusion. A coronary artery stent is seen in the region of the LAD. Thoracic aorta: Diffuse aortic calcifications are noted. Non aneurysmal thoracic aorta. Mediastinum: Limited evaluation of the hilar and mediastinal soft tissues in this unenhanced study. Large hiatal hernia is identified. Tracheobronchial tree: Patent without intraluminal filling defect. Bones: Multilevel thoracic spine degenerative changes with loss of vertebral heights most pronounced at T9 and T11 vertebra. Finding at T9 vertebra is new when compared to previous study dating back to 2010, however finding at T11 vertebra is similar to the previous study. Additional degenerative changes at the bilateral shoulder joints. Soft tissues: Within normal limits Partially visualized upper abdomen: Cholecystectomy clips in the gallbladder fossa. IMPRESSION: Lung consolidates most consistent with multifocal pneumonia. After appropriate treatment, follow-up chest x-rays are recommended to ensure resolution. Electronically signed by: Kayleen Heath MD 04/25/2018 11:05 PM CDT
[2018-04-26] MEDS: SODIUM CHLORIDE 0.9% (FLUSH) 10 ML SYG IV PRN (05:59)
[2018-04-26] MEDS: PANTOPRAZOLE SODIUM IV 40 MG VIAL IV SCH (06:00)
--- NOTE | 2018-04-26 07:20 | RAD ---
Procedure: XR CHEST 2 VIEWS Exam Date: 04/26/2018 Ordering Provider: Maykel Lambert NP Clinical Indication: Pneumonia Comparison: 04/25/2018 CT chest Findings: Cardiomediastinal silhouette is stable. Aortic calcification. Patchy opacities in both lungs, left greater than right. These are not significantly changed from prior. No pleural effusions. No pneumothorax. No acute osseous abnormalities. Hiatal hernia. Impression: 1. Patchy opacities in both lungs, left greater than right, likely representing multifocal pneumonia. Electronically signed by: Frank Bates MD 04/26/2018 7:19 AM CDT
[2018-04-26] MEDS: INSULIN LISPRO 100 UNITS/ML PEN SUBCU SCH ×4 (07:42→21:06)
[2018-04-26] MEDS: IPRATROPIUM/ALBUTEROL 3 ML VIAL INH SCH ×4 (08:41→19:37)
[2018-04-26] MEDS ORDERED: NON-FORMULARY MEDICATION 1 EA MIS (Potassium Chloride [Micro-K] 10 MEQ) PO SCH (09:00)
[2018-04-26] MEDS ORDERED: SODIUM CHLORIDE 0.9% (FLUSH) 10 ML SYG IV SCH (09:00)
[2018-04-26] MEDS ORDERED: POTASSIUM CHLORIDE 10 MEQ TAB PO ONE (09:39)
[2018-04-26] MEDS ORDERED: SODIUM CHL 0.9% 50ML MIN-BAG+ 50 ML IVPB ONE ×2 (09:39→19:25)
[2018-04-26] MEDS ORDERED: cefTRIAXone SODIUM 1 GM VIAL ONE ×2 (09:40→19:25)
[2018-04-26] MEDS ORDERED: KCL 20 MEQ/NS 1,000 ML IVS ONE (09:42)
[2018-04-26] MEDS: AZITHROMYCIN 250 MG TAB PO SCH (09:45)
[2018-04-26] MEDS: guaiFENesin ER TAB 600 MG TAB PO SCH ×2 (09:46→20:49)
[2018-04-26] MEDS: BIFIDOBACTERIUM INFANTIS 4 MG CAP PO SCH (09:47)
[2018-04-26] MEDS: MONTELUKAST 10 MG TAB PO SCH (09:47)
[2018-04-26] MEDS: SITagliptin 50 MG TAB PO SCH (09:47)
[2018-04-26] MEDS: FUROSEMIDE 40 MG TAB PO SCH (09:47)
[2018-04-26] MEDS: INSULIN GLARGINE 20 UNIT SC SCH (09:56)
[2018-04-26] MEDS ORDERED: SODIUM CHLORIDE 0.9% 1000ML 1,000 ML IVS PRN (09:59)
[2018-04-26] MEDS: cefTRIAXone SODIUM 1 GM in SODIUM CHL 0.9% 50ML MIN-BAG+ 50 ML IVPB SCH ×2 (10:01→23:00)
--- NOTE | 2018-04-26 11:04 | PN ---
SUPERVISING PHYSICIAN: DATE: 04/26/18 SUBJECTIVE: The patient states she feels better than she did yesterday. She is still having a cough, but her shortness of breath is greatly improved from yesterday. She said she is tolerating the chest therapy well. OBJECTIVE: VITAL SIGNS: Blood pressure 123/73. Heart rate 61. Respiratory rate 18. Temperature 98.6. Oxygen saturation 98%. GENERAL: Ms. Ramirez is a 77-year-old female who is in mild respiratory distress at rest at this point. NEUROLOGIC: Alert and oriented. LUNGS: Bilateral rhonchi and expiratory wheezing. CARDIOVASCULAR: Regular rate and rhythm. Normal S1, S2. ABDOMEN: Soft. Positive bowel sounds. No tenderness to palpation. EXTREMITIES: Lower extremities with no edema. Pulses 2+. Capillary refill is less than 2 seconds. LABORATORY: White count 17.4, which is an improvement over the 25.2 yesterday. Hemoglobin 10.1, hematocrit 32.2, platelet count 191. Chemistries show sodium 140, potassium 4.6, chloride 111, CO2 19, BUN 58, creatinine 1.5, glucose 238, calcium 7.9. Chest x-ray done continues to support the diagnosis of multifocal pneumonia, left greater than right. ASSESSMENT: 1. Multifocal pneumonia which is community acquired. 2. Acute exacerbation of chronic obstructive pulmonary disease. 3. Acute kidney injury. 4. Diabetes mellitus, type 2. 5. Hypertension. 6. Degenerative disc disease. 7. Osteoporosis. 8. History of rheumatoid arthritis. 9. History of congestive heart failure. 10. Iron deficiency anemia. PLAN: With clinical improvement along with improvement in her WBCs, I will continue on Rocephin and azithromycin. She is still having some wheezing, however, she seems to be showing some improvement. She did receive a dose of Solu-Medrol yesterday and given her diabetes history, I really do not want to put her on scheduled steroids, so as long as she is improving clinically, I will hold off on those. We will continue all her medications at this time and reevaluate labs as well as chest x-ray tomorrow. We will continue aggressive pulmonary toileting as well. #[id number] [facility]
[2018-04-26] MEDS: MECLIZINE HCL 12.5 MG TAB PO SCH (20:48)
[2018-04-26] MEDS: ATORVASTATIN 20 MG TAB PO SCH (20:49)
[2018-04-26] MEDS: ENOXAPARIN SODIUM 30 MG/0.3 ML SYG SUBCU SCH (20:49)
[2018-04-26] MEDS: MIRTAZAPINE 15 MG TAB PO SCH (20:50)
[2018-04-26] MEDS: HYDROcodone 5MG/APAP 325MG 1 EA TAB PO PRN (20:55)
[2018-04-26] MEDS ORDERED: MECLIZINE HCL 25 MG PO SCH (21:00)
[2018-04-27] MEDS: PANTOPRAZOLE SODIUM IV 40 MG VIAL IV SCH (06:00)
--- NOTE | 2018-04-27 06:52 | RAD ---
EXAM DESCRIPTION: Chest,1 View CLINICAL HISTORY:77 years Female, pneumonia Comparison: April 26, 2018 FINDINGS: Patchy opacities in left mid lung and left lung base representing multifocal pneumonia. No pleural effusion. No pneumothorax. Cardiac and mediastinal silhouette is unremarkable. No acute osseous abnormality. Soft tissues are unremarkable. IMPRESSION: Patchy opacities left midlung the left lung base representing a focal pneumonia, unchanged from prior. Electronically signed by: Vasile Hernandez MD 04/27/2018 6:50 AM CDT
[2018-04-27] MEDS: INSULIN LISPRO 100 UNITS/ML PEN SUBCU SCH ×4 (08:18→21:08)
[2018-04-27] MEDS: FLUTICASONE/SALMETEROL 250/50 14 PUFF/17 GM INH INH SCH (08:20)
[2018-04-27] MEDS: IPRATROPIUM/ALBUTEROL 3 ML VIAL INH SCH ×4 (08:20→20:02)
[2018-04-27] MEDS ORDERED: SODIUM BICARBONATE VIAL 50 MEQ/50 ML VIAL IV ONE (08:49)
[2018-04-27] MEDS: INSULIN GLARGINE 20 UNIT SC SCH (09:07)
[2018-04-27] MEDS: POTASSIUM CHLORIDE 10 MEQ TAB PO SCH (09:57)
[2018-04-27] MEDS ORDERED: LACTATED RINGERS 1,000 ML IVS PRN (09:57)
[2018-04-27] MEDS: FUROSEMIDE 40 MG TAB PO SCH (09:58)
[2018-04-27] MEDS: methylPREDNISolone SODIUM SUC 40 MG/ML VIAL IV SCH ×4 (09:58→22:05)
[2018-04-27] MEDS: SITagliptin 50 MG TAB PO SCH (09:58)
[2018-04-27] MEDS: BIFIDOBACTERIUM INFANTIS 4 MG CAP PO SCH (09:58)
[2018-04-27] MEDS: MONTELUKAST 10 MG TAB PO SCH (09:58)
[2018-04-27] MEDS: AZITHROMYCIN 250 MG TAB PO SCH (09:58)
[2018-04-27] MEDS: guaiFENesin ER TAB 600 MG TAB PO SCH ×2 (09:58→20:53)
[2018-04-27] MEDS ORDERED: DEXTROSE 5% IV ONE (10:00)
[2018-04-27] MEDS ORDERED: SODIUM BICARBONATE IV ONE ×4 (10:00→11:00)
[2018-04-27] MEDS ORDERED: SODIUM CHLORIDE 0.9% IV ONE ×3 (10:00→11:00)
[2018-04-27] MEDS ORDERED: SODIUM BICARBONATE VIAL 50 MEQ/50 ML VIAL ONE (10:06)
[2018-04-27] MEDS ORDERED: SODIUM CHL 0.9% 50ML MIN-BAG+ 50 ML IVPB ONE ×2 (10:07→19:17)
[2018-04-27] MEDS ORDERED: SODIUM CHLORIDE 0.9% 100ML 100 ML IVPB ONE ×2 (10:07→10:18)
[2018-04-27] MEDS ORDERED: cefTRIAXone SODIUM 1 GM VIAL ONE ×2 (10:07→19:17)
[2018-04-27] MEDS ORDERED: FUROSEMIDE INJ 20 MG/2 ML VIAL IV ONE (11:40)
--- NOTE | 2018-04-27 11:57 | PN ---
SUPERVISING PHYSICIAN: Scott Solorzano MD DATE: 04/27/18 SUBJECTIVE: The patient states she does not feel as good this morning as she did yesterday. She states she is having a little bit of shortness of breath. No fever or chills to speak of, however. OBJECTIVE: VITAL SIGNS: Blood pressure 156/70. Heart rate 83. Respiratory rate 21. Temperature 97.3. Oxygen saturation 97%. GENERAL: Ms. Ramirez is a 77-year-old female who is in mild respiratory distress at this time. NEUROLOGIC: Alert and oriented. LUNGS: Bilateral wheezing. She has a rhonchus cough. CARDIOVASCULAR: Regular rate and rhythm. Normal S1, S2. ABDOMEN: Soft. Positive bowel sounds. EXTREMITIES: Lower extremities with no edema. Pulses 2+. LABORATORY: White count 14.2. Hemoglobin 9.1, hematocrit 28.7, platelet count 199. Arterial blood gases was drawn which showed pH 7.32, pCO2 32, pO2 119, bicarb 16.1, base excess -8.8. Chemistry showed sodium 138, potassium 4.7, chloride 112, CO2 14, BUN 40, creatinine 1.11, glucose 171, calcium 7.1. Chest x-ray is unchanged. ASSESSMENT: 1. Multifocal pneumonia. 2. Acute exacerbation of chronic obstructive pulmonary disease. 3. Acute kidney injury. 4. Diabetes mellitus, type 2. 5. Hypertension. 6. Degenerative disc disease. 7. Osteoporosis. 8. History of rheumatoid arthritis. 9. History of congestive heart failure. 10. Iron deficiency anemia. PLAN: She is having stepwise improvement in her labs. This morning, she is short of breath. She only got one dose of steroids before, so I am going to put her on scheduled Solu-Medrol. I am also going to give her a dose of furosemide this morning. I am going to change her IV fluids as her chloride is up a little bit. We will need to watch her sugars pretty closely as she shows to have metabolic acidosis on her chemistry and ABG shows that as well. I am supplementing her bicarb this morning as well and we will increase coverage of her blood sugars as necessary. At this point, her cultures remain negative, so there is no reason to change antibiotics at this time. Repeat labs as well as chest x-ray tomorrow. #[id number] [facility]
[2018-04-27] MEDS: cefTRIAXone SODIUM 1 GM in SODIUM CHL 0.9% 50ML MIN-BAG+ 50 ML IVPB SCH ×2 (12:00→22:05)
[2018-04-27] MEDS ORDERED: cloNIDine HCL 0.1 MG TAB ONE (15:00)
[2018-04-27] MEDS ORDERED: cloNIDine HCL 0.1 MG TAB PO ONE (15:06)
[2018-04-27] MEDS: ATORVASTATIN 20 MG TAB PO SCH (20:53)
[2018-04-27] MEDS: MECLIZINE HCL 12.5 MG TAB PO SCH (20:53)
[2018-04-27] MEDS: SODIUM CHLORIDE 0.9% (FLUSH) 10 ML SYG IV SCH (20:53)
[2018-04-27] MEDS: MIRTAZAPINE 15 MG TAB PO SCH (20:53)
[2018-04-27] MEDS: ENOXAPARIN SODIUM 30 MG/0.3 ML SYG SUBCU SCH (20:53)
[2018-04-27] MEDS: HYDROcodone 5MG/APAP 325MG 1 EA TAB PO PRN (21:07)
[2018-04-28] MEDS: methylPREDNISolone SODIUM SUC 40 MG/ML VIAL IV SCH ×3 (04:06→17:36)
[2018-04-28] MEDS: PANTOPRAZOLE SODIUM IV 40 MG VIAL IV SCH (06:06)
[2018-04-28] MEDS: INSULIN LISPRO 100 UNITS/ML PEN SUBCU SCH ×4 (07:15→20:56)
[2018-04-28] MEDS ORDERED: SODIUM CHL 0.9% 50ML MIN-BAG+ 50 ML IVPB ONE ×2 (07:19→19:25)
[2018-04-28] MEDS ORDERED: cefTRIAXone SODIUM 1 GM VIAL ONE ×2 (07:21→19:25)
[2018-04-28] MEDS: FLUTICASONE/SALMETEROL 250/50 14 PUFF/17 GM INH INH SCH (08:16)
[2018-04-28] MEDS: IPRATROPIUM/ALBUTEROL 3 ML VIAL INH SCH ×4 (08:16→20:16)
[2018-04-28] MEDS: MONTELUKAST 10 MG TAB PO SCH (08:24)
[2018-04-28] MEDS: BIFIDOBACTERIUM INFANTIS 4 MG CAP PO SCH (08:24)
[2018-04-28] MEDS: FUROSEMIDE 40 MG TAB PO SCH (08:25)
[2018-04-28] MEDS: SITagliptin 50 MG TAB PO SCH (08:25)
[2018-04-28] MEDS: guaiFENesin ER TAB 600 MG TAB PO SCH ×2 (08:25→20:27)
[2018-04-28] MEDS: POTASSIUM CHLORIDE 10 MEQ TAB PO SCH (08:26)
[2018-04-28] MEDS: cefTRIAXone SODIUM 1 GM in SODIUM CHL 0.9% 50ML MIN-BAG+ 50 ML IVPB SCH ×2 (09:04→22:18)
[2018-04-28] MEDS: SODIUM CHLORIDE 0.9% (FLUSH) 10 ML SYG IV SCH ×2 (09:05→20:28)
[2018-04-28] MEDS: AZITHROMYCIN 250 MG TAB PO SCH (09:09)
[2018-04-28] MEDS: INSULIN GLARGINE 20 UNIT SC SCH (09:13)
--- NOTE | 2018-04-28 19:17 | PN ---
DATE: 04/28/18 SUPERVISING PHYSICIAN: Scott Solorzano M.D. SUBJECTIVE: The patient is sitting in bed. She complains of a dry cough and is having a difficult time coughing any sputum up. She also gets short of breath when she gets into a "coughing spell." Otherwise denies chest pain, nausea or vomiting. She admits to feeling some better today. OBJECTIVE: VITAL SIGNS: She is afebrile, heart rate 72, blood pressure 165/71, respiratory rate 18, O2 sat is 96% on 2 liters nasal cannula. RESPIRATORY: Essentially clear at the apices, somewhat diminished at the bases. CARDIAC: Regular rate and rhythm. GASTROINTESTINAL: Abdomen is soft, nondistended, non- tender. Bowel sounds are positive. EXTREMITIES: No cyanosis, clubbing or edema. NEUROLOGIC: She is awake, alert and oriented times three. LABORATORY: Blood sugars have run between 136 and 327. All other labs and films have been reviewed via the EMR. ASSESSMENT: 1. Multifocal pneumonia. 2. Acute exacerbation of chronic obstructive pulmonary disease. 3. Acute kidney injury. 4. Diabetes mellitus, type 2. 5. Hypertension. 6. Degenerative disc disease. 7. Osteoporosis. 8. History of rheumatoid arthritis. 9. History of congestive heart failure. 10. Iron deficiency anemia. PLAN: We will continue present supportive care. I have discontinued her IV steroids. She will start on oral steroids tomorrow. I have also ordered lab and an x-ray. Clinically she has improved and will monitor how she does on her oral prednisone. Continue to encourage good pulmonary hygiene. Will monitor closely and follow as needed. Dr. Solorzano is the collaborating physician available for consultation. #[id number] [facility]
[2018-04-28] MEDS: MECLIZINE HCL 12.5 MG TAB PO SCH (20:27)
[2018-04-28] MEDS: ATORVASTATIN 20 MG TAB PO SCH (20:27)
[2018-04-28] MEDS: HYDROcodone 5MG/APAP 325MG 1 EA TAB PO SCH (20:27)
[2018-04-28] MEDS: ENOXAPARIN SODIUM 30 MG/0.3 ML SYG SUBCU SCH (20:27)
[2018-04-28] MEDS: MIRTAZAPINE 15 MG TAB PO SCH (20:28)
[2018-04-28] MEDS: IV SET AND CAP CHANGE INJ INJ SCH (22:19)
[2018-04-29] MEDS: BENZOCAINE-MENTH LOZ (CEPACOL) 1 EA LOZ MT PRN ×2 (04:49→11:21)
[2018-04-29] MEDS: PANTOPRAZOLE SODIUM IV 40 MG VIAL IV SCH (06:28)
--- NOTE | 2018-04-29 07:00 | RAD ---
EXAM DESCRIPTION: Chest,2 Views CLINICAL HISTORY:77 years Female, pna Comparison: April 27, 2018 FINDINGS: Improved aeration compared to prior with minimal persistent left basilar patchy opacities. Large hiatal hernia. Cardiac silhouette is enlarged. Electronically signed by: Vasile Hernandez MD 04/29/2018 6:58 AM CDT
[2018-04-29] MEDS: FLUTICASONE/SALMETEROL 250/50 14 PUFF/17 GM INH INH SCH (07:36)
[2018-04-29] MEDS: IPRATROPIUM/ALBUTEROL 3 ML VIAL INH SCH ×4 (07:36→20:23)
[2018-04-29] MEDS ORDERED: methylPREDNISolone SODIUM SUC 125 MG/2 ML VIAL IM ONE (08:13)
[2018-04-29] MEDS ORDERED: MAGNESIUM SULFATE PREMIX 2GM 2 GM in PREMIX BAG 1 BAG IVPB ONE (08:18)
[2018-04-29] MEDS: INSULIN LISPRO 100 UNITS/ML PEN SUBCU SCH ×4 (08:36→20:58)
[2018-04-29] MEDS ORDERED: SODIUM CHL 0.9% 50ML MIN-BAG+ 50 ML IVPB ONE ×2 (08:40→20:06)
[2018-04-29] MEDS ORDERED: MAGNESIUM SULFATE PREMIX 2GM 50 ML IVPB ONE (08:41)
[2018-04-29] MEDS ORDERED: methylPREDNISolone SODIUM SUC 125 MG/2 ML VIAL ONE (08:42)
[2018-04-29] MEDS ORDERED: cefTRIAXone SODIUM 1 GM VIAL ONE ×2 (08:42→20:06)
[2018-04-29] MEDS: AZITHROMYCIN 250 MG TAB PO SCH (08:55)
[2018-04-29] MEDS: BIFIDOBACTERIUM INFANTIS 4 MG CAP PO SCH (08:55)
[2018-04-29] MEDS: MONTELUKAST 10 MG TAB PO SCH (08:55)
[2018-04-29] MEDS: FUROSEMIDE 40 MG TAB PO SCH (08:55)
[2018-04-29] MEDS: SITagliptin 50 MG TAB PO SCH (08:55)
[2018-04-29] MEDS: guaiFENesin ER TAB 600 MG TAB PO SCH ×2 (08:56→20:48)
[2018-04-29] MEDS ORDERED: methylPREDNISolone SODIUM SUC 125 MG/2 ML VIAL IV ONE (09:00)
[2018-04-29] MEDS: predniSONE 20 MG TAB PO SCH (09:40)
[2018-04-29] MEDS: SODIUM CHLORIDE 0.9% (FLUSH) 10 ML SYG IV SCH ×2 (09:40→20:48)
[2018-04-29] MEDS: POTASSIUM CHLORIDE 10 MEQ TAB PO SCH (09:40)
[2018-04-29] MEDS: INSULIN GLARGINE 20 UNIT SC SCH (09:52)
[2018-04-29] MEDS: cefTRIAXone SODIUM 1 GM in SODIUM CHL 0.9% 50ML MIN-BAG+ 50 ML IVPB SCH ×2 (11:23→22:17)
--- NOTE | 2018-04-29 11:36 | PN ---
DATE: 04/29/18 SUPERVISING PHYSICIAN: Scott Solorzano M.D. SUBJECTIVE: The patient is sitting up in bed. She complains of a hacking cough. Her shortness of breath has improved but she felt like she coughed all night long. Her primary nurse said she had much more wheezing this morning than she did yesterday, but her vital signs have been stable and the patient just feels very weak. OBJECTIVE: VITAL SIGNS: Temperature 97.9, heart rate 100, respiratory rate 23, O2 sat is 96% on 2 liters nasal cannula. RESPIRATORY: Diminished at the bases. She does have a few expiratory wheezes in the left upper chest area. CARDIAC : Regular rate and rhythm. GASTROINTESTINAL: Abdomen is soft, nondistended, non -tender. Bowel sounds are positive. NEUROLOGIC: She is awake, alert and oriented times three. LABORATORY: WBCs have normalized to 8.2, hemoglobin 9.8, hematocrit 30.3. Chemistries are basically within normal limits with the exception of her magnesium is low at 1.6. Blood sugars have run between 107 and 237. Preliminary blood cultures show no growth after 3 days. Chest x-ray shows improved aeration compared to prior with minimal persistent left basilar patchy opacities and a large hiatal hernia, and her cardiac silhouette is enlarged. All other labs and films have been reviewed via the EMR. ASSESSMENT: 1. Multifocal pneumonia. 2. Acute exacerbation of chronic obstructive pulmonary disease. 3. Acute kidney injury. 4. Diabetes mellitus, type 2. 5. Hypertension. 6. Degenerative disc disease. 7. Osteoporosis. 8. History of rheumatoid arthritis. 9. History of congestive heart failure of unknown etiology with mild exacerbation during this hospital visit. 10. Iron deficiency anemia. PLAN: We will continue on present supportive care. Due to her coughing and extra wheezing today I have given her 1 dose of IV Solu-Medrol, but she will continue on her p.o. prednisone. I have given her some magnesium replacement. I will recheck her labs and chest x-ray in the morning. Will continue with good pulmonary hygiene. Will monitor the patient closely and follow as needed. Dr. Solorzano is the collaborating physician available for consultation. #[id number] [facility]
[2018-04-29] MEDS ORDERED: PROMETHAZINE W/CODEINE SYR 5 ML UD PO PRN (13:50)
[2018-04-29] MEDS: CHLORPHENIRAMINE W/HYDROCODONE 5 ML UD PO PRN (14:57)
[2018-04-29] MEDS: HYDROcodone 5MG/APAP 325MG 1 EA TAB PO SCH (20:48)
[2018-04-29] MEDS: ENOXAPARIN SODIUM 30 MG/0.3 ML SYG SUBCU SCH (20:48)
[2018-04-29] MEDS: MIRTAZAPINE 15 MG TAB PO SCH (20:48)
[2018-04-29] MEDS: ATORVASTATIN 20 MG TAB PO SCH (20:48)
[2018-04-29] MEDS: MECLIZINE HCL 12.5 MG TAB PO SCH (20:48)
[2018-04-30] MEDS: PANTOPRAZOLE SODIUM IV 40 MG VIAL IV SCH (06:28)
--- NOTE | 2018-04-30 06:37 | RAD ---
PROCEDURE: XR Chest, 2 Views CLINICAL INDICATION: The patient is 77 years old and is Female; pna TECHNIQUE: Frontal and lateral views of the chest. COMPARISON: Prior study from one day earlier. FINDINGS: LUNGS: Diffusely prominent interstitial markings are again noted. There appears to be scarring at the LEFT base. No discrete pulmonary infiltrate is identified. There is flattening of the hemidiaphragms on the lateral view with increased A-P diameter and biapical lucency. This is compatible with the presence of chronic obstructive pulmonary disease. There is biapical pleuroparenchymal scarring. Pulmonary vascularity is within normal limits. PLEURAL SPACE: There is persistent blunting of the RIGHT costophrenic sulcus which may be from a RIGHT pleural effusion. There is NO pneumothorax. HEART: The heart size is globular and enlarged. MEDIASTINUM: There is a very large hiatal hernia. The mediastinal contour is unremarkable. BONES/JOINTS: Advanced degenerative changes of the shoulders are noted. There are degenerative changes of the spine identified. There is decreased bone mineral density. IMPRESSION: 1. There is a very large hiatal hernia. 2. Diffusely prominent interstitial markings are again noted. Chronic obstructive pulmonary disease. 3. There appears to be scarring at the LEFT base. 4. There is persistent blunting of the RIGHT costophrenic sulcus which may be from a RIGHT pleural effusion. 5. The heart size is globular and enlarged. 6. No discrete pulmonary infiltrate is identified. Electronically signed by: Bhanu Lowe MD 04/30/2018 6:35 AM CDT
[2018-04-30] MEDS: FLUTICASONE/SALMETEROL 250/50 14 PUFF/17 GM INH INH SCH (07:44)
[2018-04-30] MEDS: IPRATROPIUM/ALBUTEROL 3 ML VIAL INH SCH ×4 (07:44→20:30)
[2018-04-30] MEDS: INSULIN LISPRO 100 UNITS/ML PEN SUBCU SCH ×4 (07:59→21:10)
[2018-04-30] MEDS ORDERED: SODIUM CHL 0.9% 50ML MIN-BAG+ 50 ML IVPB ONE ×2 (08:09→20:29)
[2018-04-30] MEDS ORDERED: cefTRIAXone SODIUM 1 GM VIAL ONE ×2 (08:10→20:30)
[2018-04-30] MEDS: predniSONE 20 MG TAB PO SCH (08:49)
[2018-04-30] MEDS: AZITHROMYCIN 250 MG TAB PO SCH (08:49)
[2018-04-30] MEDS: BIFIDOBACTERIUM INFANTIS 4 MG CAP PO SCH (08:49)
[2018-04-30] MEDS: POTASSIUM CHLORIDE 10 MEQ TAB PO SCH (08:49)
[2018-04-30] MEDS: INSULIN GLARGINE 20 UNIT SC SCH (08:49)
[2018-04-30] MEDS: FUROSEMIDE 40 MG TAB PO SCH (08:49)
[2018-04-30] MEDS: MONTELUKAST 10 MG TAB PO SCH (08:49)
[2018-04-30] MEDS: guaiFENesin ER TAB 600 MG TAB PO SCH ×2 (08:49→21:08)
[2018-04-30] MEDS: SODIUM CHLORIDE 0.9% (FLUSH) 10 ML SYG IV SCH ×2 (08:50→21:09)
[2018-04-30] MEDS: SITagliptin 50 MG TAB PO SCH (08:50)
[2018-04-30] MEDS: cefTRIAXone SODIUM 1 GM in SODIUM CHL 0.9% 50ML MIN-BAG+ 50 ML IVPB SCH ×2 (10:44→23:58)
[2018-04-30] MEDS: CHLORPHENIRAMINE W/HYDROCODONE 5 ML UD PO PRN (12:04)
--- NOTE | 2018-04-30 16:12 | PN ---
DATE: 04/30/18 SUPERVISING PHYSICIAN: Scott Solorzano M.D. SUBJECTIVE: The patient is lying in her hospital; bed. She says she feels much better but she still gets quite short of breath with any exertion. Her coughing is better since she has the cough syrup. She denies chest pain, nausea , vomiting or diarrhea or constipation. OBJECTIVE: VITAL SIGNS: Temperature 98.3, heart rate 82, respiratory rate 176/75, respiratory rate 20, O2 sat is 96%. RESPIRATORY: Essentially clear to auscultation bilaterally. She has diminished breath sounds throughout. She is slightly tachypneic with speaking. She speaks in short phrases and is noticeably short of breath with speaking. CARDIAC: Regular rate and rhythm. GASTROINTESTINAL: Abdomen is soft, nondistended, non-tender. Bowel sounds are positive. NEUROLOGIC: She is awake, alert and oriented times three. LABORATORY: WBCs 8.8 with stable hemoglobin 9.9, hematocrit 30.6. She has a left shift on differential. Blood sugars have run between 107 and 310. Electrolytes are basically within normal limits. Magnesium normal today at 1.9 after supplementation. Preliminary blood cultures show no growth after 4 days. Chest x-ray shows: 1. Large hiatal hernia. 2. Diffusely prominent interstitial markings again noted with chronic obstructive pulmonary disease. 3. Scarring of the left lung base. 4. Persistent blunting of the right costophrenic sulcus which may be from a right pleural effusion. 5. Heart size is globular and enlarged. 6. No discrete pulmonary infiltrate is identified. All other labs and films have been reviewed via the EMR. ASSESSMENT: 1. Multifocal pneumonia, improving. 2. Acute exacerbation of chronic obstructive pulmonary disease. 3. Acute kidney injury that has improved. 4. Diabetes mellitus, type 2. 5. Hypertension. 6. Degenerative disc disease. 7. Osteoporosis. 8. History of rheumatoid arthritis. 9. History of congestive heart failure of unknown etiology with mild exacerbation during this hospital visit that has improved. 10. Iron deficiency anemia. PLAN: We will continue present supportive care. Clinically she has improved and her lab is fairly stable so we will hold on the lab and x-ray for tomorrow. She can be discharged tomorrow with a steroid taper and some antibiotics. We will do an ambulation study today as well as have her ambulate in the hooks with a walker. I will have PT evaluate for safely in the morning. Am also going to do bladder training so the Zheng catheter can be discontinued and we will continue good pulmonary hygiene. She is on her p.o. steroids at this time. We will continue to monitor closely and follow as needed. Dr. Solorzano is the collaborating physician available for consultation. #[id number] [facility]
[2018-04-30] MEDS: MECLIZINE HCL 12.5 MG TAB PO SCH (21:05)
[2018-04-30] MEDS: MIRTAZAPINE 15 MG TAB PO SCH (21:06)
[2018-04-30] MEDS: ENOXAPARIN SODIUM 30 MG/0.3 ML SYG SUBCU SCH (21:08)
[2018-04-30] MEDS: ATORVASTATIN 20 MG TAB PO SCH (21:08)
[2018-04-30] MEDS: HYDROcodone 5MG/APAP 325MG 1 EA TAB PO SCH (21:09)
[2018-05-01] MEDS: PANTOPRAZOLE SODIUM IV 40 MG VIAL IV SCH (06:02)
[2018-05-01] MEDS: INSULIN LISPRO 100 UNITS/ML PEN SUBCU SCH (07:15)
[2018-05-01] MEDS: IPRATROPIUM/ALBUTEROL 3 ML VIAL INH SCH (08:08)
[2018-05-01] MEDS: FLUTICASONE/SALMETEROL 250/50 14 PUFF/17 GM INH INH SCH (08:09)
[2018-05-01] MEDS: INSULIN GLARGINE 20 UNIT SC SCH (08:30)
[2018-05-01] MEDS: SITagliptin 50 MG TAB PO SCH (08:31)
[2018-05-01] MEDS: FUROSEMIDE 40 MG TAB PO SCH (08:31)
[2018-05-01] MEDS: POTASSIUM CHLORIDE 10 MEQ TAB PO SCH (08:31)
[2018-05-01] MEDS: MONTELUKAST 10 MG TAB PO SCH (08:32)
[2018-05-01] MEDS: guaiFENesin ER TAB 600 MG TAB PO SCH (08:32)
[2018-05-01] MEDS: AZITHROMYCIN 250 MG TAB PO SCH (08:32)
[2018-05-01] MEDS: predniSONE 20 MG TAB PO SCH (08:32)
[2018-05-01] MEDS: SODIUM CHLORIDE 0.9% (FLUSH) 10 ML SYG IV SCH (08:32)
[2018-05-01] MEDS: BIFIDOBACTERIUM INFANTIS 4 MG CAP PO SCH (08:36)
[2018-05-01 09:31] VITALS: O2SAT 98
[2018-05-01] MEDS: cefTRIAXone SODIUM 1 GM in SODIUM CHL 0.9% 50ML MIN-BAG+ 50 ML IVPB SCH (10:16)
[2018-05-01 10:18] VITALS: BP 162/69; TEMP 98
--- NOTE | 2018-05-01 20:33 | DS ---
SUPERVISING PHYSICIAN: Jarod Tapia M.D. ADMISSION DIAGNOSIS: 1. Acute exacerbation of chronic obstructive pulmonary disease with multifocal pneumonia more prominent on the left than right with a notable bibasilar presentation likely community acquired. 2. Leukocytosis with a fever secondary to #1. 3. Renal insufficiency with a baseline creatinine of 0.81 more likely prerenal azotemic state secondary to developing pneumonia. 4. Diabetes mellitus type 2 on insulin therapy. 5. Hypertension. 6. Degenerative disc disease. 7. Osteoporosis. 8. 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 9. History of rheumatoid arthritis 10. Gastroesophageal reflux disease. 11. History of congestive heart failure, unknown etiology although last echocardiogram noted to be in January 2013 showing an ejection fraction of 65%. 12. Chronic iron deficiency anemia. 13. History of diverticulosis. 14. History of restless leg syndrome. DISCHARGE DIAGNOSIS: 1. Multifocal pneumonia, improving with treatment with parenteral antibiotics and transitioning to oral antibiotics showing to be stable. 2. Sepsis secondary to multifocal pneumonia as evidenced by a temperature of 100.6, tachycardia with a rate of 95 with leukocytosis of 25,200 and bandemia of 11% on admission, resolving and improving with aggressive management with parenteral antibiotics and IV fluids. 3. Acute exacerbation of chronic obstructive pulmonary disease secondary to # 1 from community acquired pneumonia. 4. Acute kidney injury improving back to baseline with fluids. 5. Diabetes mellitus type 2, stable. 6. Hypertension, stable. 7. Chronic degenerative disc disease. 8. Chronic osteoporosis. 9. History of chronic rheumatoid arthritis. 10. History of congestive heart failure with unknown etiology with some mild exacerbation during hospitalization showing improvement after treatment with Lasix. 11. Chronic iron deficiency anemia secondary to chronic illness and advanced age. REASON FOR HOSPITALIZATION: Ms. Ramirez is a 77-year-old, female that resides at home. She initially was brought to the Emergency Room on 04/25/18 by EMS complaining of increasing shortness of breath. She does have a longstanding history of asthma and COPD and utilizes a nebulizer treatment on a daily basis as well as oxygen at night. She had noticed that she had been developing a cough that had worsened over the last several days before admission but unable to produce any sputum. She is unsure if she actually had any fever prior to admission and has noted that she has been admitted in the past year for pneumonia on multiple occasions. On this admission, she denied any chest pains but laboratory studies showed that she had a significant leukocytosis of 25,100 with a left shift and 11% bands. Her troponin was within normal limits. Lactic acid was normal 1.14 as well as BNP at 37.2. Her chest x-ray initially completed in the E. R. showed per radiology interpretation there was note of some nodules and nodular infiltrates in the left lung. On initial presentation to the Emergency Room she was running a fever of 100.6 with heart rate 95, blood pressure 116/75. Saturation 95% on 3 liters nasal cannula. She was having respirations of 26 but after breathing treatments and oxygen her respirations had settled down at 18. With the clinical finding of leukocytosis, increasing shortness of breath, history of chronic obstructive pulmonary disease and multiple hospitalizations for pneumonia and findings on radiographic studies concerning for developing pneumonia, blood cultures were collected and she was started on treatment for community acquired pneumonia initially with Rocephin and azithromycin. She was then admitted to the medical/surgical floor for ongoing treatment. She was in stable condition at time of admission. LABORATORY STUDIES: White count on admission was 25,200 with a left shift and 11% bands. Hemoglobin was 10.5, hematocrit 32.5. At discharge after treatment , white count had normalized to 8.8, hemoglobin was stable at 9.9, hematocrit 30.6 with differential showing to have resolved and returning to baseline with platelet count 221,000. Blood gases on admission showed she had a pH of 7.32 with bicarb 16, pO2 of 119 and pCO2 of 32, satting 99% on nasal cannula at rest. Initial chemistries showed normal electrolytes with BUN 57, creatinine 1.72, glucose 181, lactic acid 1.4, magnesium 1.6, at discharge was 1.9. Liver functions all were within normal limits. Troponin was less than 0.02 with BNP of 37.2. At discharge after treatment electrolytes were within normal limits. BUN had returned to near baseline status at 30 with creatinine down to 1.98. Blood sugars were ranging between 102 up to 268. MICROBIOLOGY: Sputum culture was pending at discharge. Blood cultures remained negative after 5 days with no growth. RADIOLOGY: Initially in the Emergency Room she did have a chest x-ray and per radiology interpretation showed nodules or nodular infiltrate in the left lung, large heart without any congestive failure. There is a large hiatal hernia. This was followed-up with a CT of the chest without contrast and per radiology interpretation there was note of large lung consolidates most consistent with multifocal pneumonia. Additional chest x-ray completed on 04/30/18, last x-ray per radiology interpretation noted of 2 view chest a very large hiatal hernia and diffusely prominent interstitial markings again noted with chronic obstructive pulmonary disease with what appears to be scarring to the left base with persistent blunting of the right costophrenic angle which may be from right pleural effusion. There was no pulmonary infiltrates identified. Please see that report for full details. PHYSICAL ASSESSMENT: VITAL SIGNS: Temperature 98, pulse 69, blood pressure 162/69, respirations 20, satting 98% on nasal cannula at 1 liter. GENERAL: The patient is very pleasant. She is alert. Appears to be in no acute distress, resting comfortably. CHEST: Lungs were fairly clear to auscultation, just continue to be diminished throughout. No notable wheezing was noted. HEART: Regular rate and rhythm. ABDOMEN: Soft, non-tender. Positive bowel sounds. EXTREMITIES: No clubbing, cyanosis or edema. NEUROLOGIC: She is alert and oriented times three. HOSPITAL COURSE: Ms. Ramirez was admitted on 04/25/18 as noted for multifocal pneumonia, community acquired, with exacerbation of COPD. She was started on aggressive pulmonary hygiene, antibiotic coverage with Rocephin and azithromycin. She finished a full course of azithromycin 500 mg IV and p.o. She continued on IV antibiotics including Rocephin along with aggressive pulmonary hygiene. She did slowly progress clinically but on day of discharge was showing good improvement and was able to transition to p.o. medications for continued outpatient management. She was transitioned to p.o. prednisone and was showing good clinical stabilization and improvement, and is now going to be discharged to have outpatient management continued with p.o. prednisone and continued coverage with Cefdinir. PLAN: Ms. Ramirez was discharged on 05/01/18 with instructions to followup with Dr. Tapia in the following week or Licha Hale if needed sooner. She was to resume her home medications as previously instructed. She was to take new medications as directed. She was to increase activity as tolerated and to wear her oxygen as needed. Diet was diabetic diet as tolerated. She was encouraged to monitor her blood sugars while on prednisone. MEDICATIONS AT DISCHARGE: 1. Align 4 mg daily, #30. 2. Cefdinir 300 mg twice daily for an additional 6 days, 10 days total. 3. Prednisone taper 40 mg with 40 mg for 3 days, then 20 mg daily for 3 days, then 10 mg daily for 5 days total. All other medications were continued. Followup appointment was scheduled for at 1400. Condition on discharge was stable and improved. [facility][id number] [facility]
== END 2018-05-01 11:19 | disposition home health service (06) | DRG 871 ==
LOC: ER 17:00 → MS 20:36 → OBSVTOIN 20:36
PROVIDERS: ADMIT Nurse Practitioner Family; ATTEND Nurse Practitioner Family
DX: A41.9 Sepsis, unspecified organism (principal); J18.9 Pneumonia, unspecified organism; J44.0 Chronic obstructive pulmonary disease with (acute) lower respiratory infection; J44.1 Chronic obstructive pulmonary disease with (acute) exacerbation; N17.9 Acute kidney failure, unspecified; E11.9 Type 2 diabetes mellitus without complications; Z79.4 Long term (current) use of insulin; I11.0 Hypertensive heart disease with heart failure; I50.9 Heart failure, unspecified; M19.90 Unspecified osteoarthritis, unspecified site; M81.0 Age-related osteoporosis without current pathological fracture; G40.909 Epilepsy, unspecified, not intractable, without status epilepticus; M06.9 Rheumatoid arthritis, unspecified; K21.9 Gastro-esophageal reflux disease without esophagitis; D50.0 Iron deficiency anemia secondary to blood loss (chronic); Z99.81 Dependence on supplemental oxygen; K44.9 Diaphragmatic hernia without obstruction or gangrene; G25.81 Restless legs syndrome; Z96.653 Presence of artificial knee joint, bilateral; Z96.643 Presence of artificial hip joint, bilateral

== ENCOUNTER → 2018-06-22 | Outpatient (CLI) | payer MEDICARE, OTHER | LOC: GMAM 17:41 | PROVIDERS: ATTEND Family Medicine | DX: R53.83 Other fatigue (principal) ==

== ENCOUNTER → 2018-06-27 | Outpatient (CLI) | payer MEDICARE, OTHER ==
--- NOTE | 2018-06-27 19:25 | MRI ---
EXAM DESCRIPTION: Lumbar Spine w/o Contrast : Magnetic Resonance Imaging. CLINICAL HISTORY: LOW BACK PAIN COMPARISON: Radiographs lumbar spine 10/16/2013. TECHNIQUE: Multiplanar, multiple standard sequences, non contrast MRI, lumbar spine. FINDINGS: Bilateral posterior transpedicular fusion L3-S1. Artifact from the hardware causes minimal limitation of the study. Minimal edema in the bilateral paraspinal muscles from L3 to S1. More to the right than the left. No fluid collection or soft tissue mass. No fluid collection in the spinal canal. Desiccation of the L5-S1 disc. With minimal posterior bulge. Posterior decompression. Left foramen is patent with borderline right foraminal stenosis. Bilateral disc space narrowing more on the right lateral ventricle left lateral aspect. Partial fusion of the bilateral facets. L4-5 disc partially desiccated. Trace anterolisthesis. Posterior canal decompression. Fusion of the right side of the disc space. Minimal right foraminal narrowing. Left foramen patent. L3-4 disc space significantly narrowed to the left of midline with minimal depression of the superior endplate. No posterior disc bulge. Anterior spurs. Posterior decompression. Marked narrowing possibly borderline stenosis on the right. Mild narrowing of the left foramen. L2-3: Diffuse desiccation of the disc with less disc involvement of the right of midline. Anterior and left side Modic type II endplate reactive changes. Hypertrophy of the endplates anteriorly and to the left and laterally with left foraminal stenosis. Moderate to severe right foraminal narrowing. Minimal flavum ligament hypertrophy and facet arthrosis. Mild canal narrowing. L1-2: Left side disc space loss and Modic type II endplate reactive changes. Borderline foraminal stenosis. Mild narrowing on the right. Posterior flavum ligaments with minimal hypertrophy and minimal facet arthrosis with mild canal narrowing. T12-L1: Minimal disc desiccation no posterior bulge. Minimal anterior bulge. Minimal facet arthrosis. Canal and bilateral foramina are patent. Conus terminates at L1. L1-L3 dextroscoliosis. L4-S1 levoscoliosis. Paravertebral soft tissues postsurgical atrophy and paraspinal muscle edema as described above. Minimal left psoas muscle atrophy abutting the concave side of the scoliosis.. Normal marrow signal in the remaining vertebral bodies and the posterior elements. Vertebral bodies are not compressed at any level. IMPRESSION: 1. Bilateral posterior transpedicular fusion L3-S1. Hardware appears intact. Minimal paraspinal muscle edema abutting the posterior aspect of the screws mostly to the right of midline at the L3 and 4 levels but no definite fluid collection. This may reflect an acute paraspinal muscle strain. No soft tissue mass or atrophy. No intraspinal soft tissue mass or fluid collection. 2. Borderline right foraminal stenosis at L5-S1. Correlate for right L5 radiculopathy. 3. Minimal depression of the superior L3 endplate of unknown significance. Minimal L2-3 disc expansion with no marrow edema in the endplate. Moderate narrowing versus borderline stenosis right foramen. Correlate for right L3 radiculopathy. 4. Anterior left side L2-3 Modic type II endplate reactive changes with large spur formation on the anterior and left lateral disc space. Left foraminal stenosis moderate to severe right foraminal narrowing. No canal stenosis. Correlate for bilateral L2 radiculopathy. 5. Borderline left foraminal stenosis at L1-2. Moderate left side spondylosis. Electronically signed by: Luis Barrera MD 06/27/2018 7:23 PM [facility]
== END ==
LOC: MRI 10:00
PROVIDERS: ATTEND Family Medicine
DX: M48.061 Spinal stenosis, lumbar region without neurogenic claudication (principal); Z98.1 Arthrodesis status

== ENCOUNTER → 2018-11-23 | Outpatient (CLI) | payer MEDICARE, OTHER | LOC: NC 12:12 | PROVIDERS: ATTEND Family Medicine | DX: J43.8 Other emphysema (principal); I10 Essential (primary) hypertension; I50.9 Heart failure, unspecified; E11.42 Type 2 diabetes mellitus with diabetic polyneuropathy ==

== ENCOUNTER → 2018-12-05 | Outpatient (CLI) | payer MEDICARE, MEDICAID | LOC: NC 10:31 | PROVIDERS: ATTEND Family Medicine | DX: I11.0 Hypertensive heart disease with heart failure (principal); I50.9 Heart failure, unspecified; I25.10 Atherosclerotic heart disease of native coronary artery without angina pectoris; E11.42 Type 2 diabetes mellitus with diabetic polyneuropathy; I25.2 Old myocardial infarction; M19.91 Primary osteoarthritis, unspecified site ==

== ENCOUNTER → 2019-01-04 | Outpatient (CLI) | payer MEDICARE, MEDICAID | LOC: NC 10:15 | PROVIDERS: ATTEND Family Medicine | DX: I11.0 Hypertensive heart disease with heart failure (principal); I50.9 Heart failure, unspecified; E11.42 Type 2 diabetes mellitus with diabetic polyneuropathy ==

== ENCOUNTER → 2019-01-23 | Outpatient (CLI) | payer MEDICARE, MEDICAID | LOC: GMAE 18:31 | PROVIDERS: ATTEND Family Medicine | DX: J06.9 Acute upper respiratory infection, unspecified (principal); E03.9 Hypothyroidism, unspecified; R63.4 Abnormal weight loss ==

== ENCOUNTER → 2019-02-01 | Outpatient (CLI) | payer MEDICARE, MEDICAID | LOC: GMAM 16:06 | PROVIDERS: ATTEND Family Medicine | DX: E53.8 Deficiency of other specified B group vitamins (principal); E55.9 Vitamin D deficiency, unspecified ==

== ENCOUNTER → 2019-06-06 | Outpatient (CLI) | payer MEDICARE, MEDICAID | LOC: GMAM 17:32 | PROVIDERS: ATTEND Family Medicine | DX: E53.8 Deficiency of other specified B group vitamins (principal); D64.9 Anemia, unspecified; E55.9 Vitamin D deficiency, unspecified; I10 Essential (primary) hypertension; E11.9 Type 2 diabetes mellitus without complications ==

== ENCOUNTER 2020-02-05 22:09 | Observation (INO) | payer MEDICARE, MEDICAID ==
--- NOTE | 2020-02-05 22:44 | RAD ---
EXAM DESCRIPTION: X-ray, left knee, two views CLINICAL HISTORY: left knee pain after it buckled and pt fell COMPARISON: None FINDINGS: AP and lateral views of the left knee. Postoperative changes of left total knee arthroplasty prosthesis. Adjacent to the lateral aspect of the femoral component, there is a minimally displaced fracture of the lateral femoral condyle/epicondyle, which appears acute. Anatomic alignment. No additional fracture seen. No evidence of subsidence. No joint effusion. IMPRESSION: Acute appearing lateral femoral condyle/epicondyle periprosthetic fracture. Electronically signed by: Jose Levine MD 02/05/2020 10:43 PM CDT
--- NOTE | 2020-02-05 23:07 | ED.PDOC ---
History of Present Illness - General Chief Complaint: Lower Extremity Injury Stated Complaint: Left knee pain Time Seen by Provider: 02/05/20 22:18 Source: patient, RN notes reviewed, Vital Signs reviewed, EMS notes reviewed Exam Limitations: no limitations - History of Present Illness Initial Comments: Patient is an 79-year-old white female who was getting out of her car, stepped and her knee gave out and she fell to the ground. Patient complains of left knee pain. Throbbing in nature. Moderate in intensity. Worse with movement. No radiation of the pain. Occurred: just prior to arrival Severity: moderate Pain Location: lower extremity - Left knee Method of Injury: other - Patient's knee gave way and buckled and she fell to the ground. She fell onto grassy dirt. Improving Factors: nothing Worsening Factors: movement Loss of Consciousness: no loss of consciousness Associated Symptoms (Fall): denies symptoms Allergies/Adverse Reactions: Allergies Amitriptyline Allergy (Intermediate, Verified 02/05/20 23:04) Ciprofloxacin [From Cipro] Allergy (Intermediate, Verified 02/05/20 23:04) Codeine Allergy (Intermediate, Verified 02/05/20 23:04) Enalapril [From Vasotec] Allergy (Intermediate, Verified 02/05/20 23:04) Iodine Allergy (Intermediate, Verified 02/05/20 23:04) Naloxone [From Talwin Nx] Allergy (Intermediate, Verified 02/05/20 23:04) Penicillin G Allergy (Intermediate, Verified 02/05/20 23:04) Pentazocine [From Talwin Nx] Allergy (Intermediate, Verified 02/05/20 23:04) Tetanus Toxoid Allergy (Intermediate, Verified 02/05/20 23:04) Morphine Allergy (Unknown, Verified 02/05/20 23:04) Unknown Home Medications: Ambulatory Orders Atorvastatin Calcium [Lipitor] 20 mg PO BEDTIME 08/25/15 Clonazepam 0.5 mg PO BEDTIME 08/25/15 Montelukast [Singulair] 10 mg PO DAILY 08/25/15 Mirtazapine [Remeron] 7.5 mg PO BEDTIME 12/08/15 Fluticasone/Salmeterol 250/50 [Advair 250/50 Diskus] 1 puff INH DAILY 05/19/16 SITagliptin [Januvia] 50 mg PO DAILY #30 tab 10/15/16 Insulin Glargine [Toujeo Solostar] 20 unit SC DAILY 04/13/17 Potassium Chloride [Micro-K] 10 meq PO DAILY 04/13/17 Promethazine HCl 25 mg PO Q6H PRN 04/13/17 Meclizine HCl 25 mg PO BEDTIME #0 04/16/17 Cyanocobalamin [B12] 1,000 mcg PO MONTHLY 07/22/17 Furosemide Tab [Lasix Tab] 20 mg PO DAILY 07/22/17 Omeprazole Magnesium [Prilosec Otc] 20 mg PO DAILY 07/22/17 Albuterol Sulfate [Ventolin Hfa] 1 puff IN BID 04/26/18 Wutwjyzrqps-Faxdxzvgoktv-Tlpxw [Trelegy Ellipta 100-62.5-25 Mcg/INH] 1 puff IN DAILY 04/26/18 rOPINIRole HCL [Requip] 1 mg PO BEDTIME 04/26/18 predniSONE 40 mg PO DAILY #12 tab 05/01/18 Hydroxychloroquine Sulfate [Hydroxychloroquine Sulfat] 200 mg PO DAILY 02/05/20 Leflunomide 10 mg PO DAILY 02/05/20 Tizanidine HCl 2 mg PO BEDTIME 02/05/20 Review of Systems - Review of Systems Constitutional: States: no symptoms reported EENTM: States: no symptoms reported Respiratory: States: no symptoms reported Cardiology: States: no symptoms reported Gastrointestinal/Abdominal: States: no symptoms reported Genitourinary: States: no symptoms reported Musculoskeletal: States: joint pain - Left knee, joint swelling - Left knee Skin: States: no symptoms reported Neurological: States: no symptoms reported Endocrine: States: no symptoms reported Hematologic/Lymphatic: States: no symptoms reported All other Systems: Reviewed and Negative Past Medical History (General) - Patient Medical History Hx Seizures: Yes Hx Stroke: No Hx Dementia: Yes Hx Asthma: Yes Hx of COPD: Yes Hx Cardiac Disorders: Yes - HX MN, stents Hx Congestive Heart Failure: Yes Hx Pacemaker: No Hx Hypertension: Yes Hx Thyroid Disease: No Hx Diabetes: Yes Hx Gastroesophageal Reflux: Yes Hx Renal Disease: No Hx Cancer: No Hx of HIV: No Hx Hepatitis C: No Hx MRSA: No MRSA Source:: Blood Surgical History: appendectomy, cholecystectomy, tonsillectomy, Hysterectomy - Vaccination History Hx Tetanus, Diphtheria Vaccination: No - allergic Hx Influenza Vaccination: Yes Hx Pneumococcal Vaccination: Yes - Social History Hx Tobacco Use: No Hx Chewing Tobacco Use: No Hx Alcohol Use: No Hx Substance Use: No Hx Substance Use Treatment: No Hx Depression: No Hx Physical Abuse: No Hx Emotional Abuse: No Hx Suspected Abuse: No - Female History Patient : No Family Medical History - Family History Father Hx Family Asthma: Yes Hx Family Congestive Heart Failure: Yes Hx Family Hypertension: Yes Hx Family Stroke: Yes Hx Cardiac Disease: Yes Hx Family Diabetes: No Hx Family Cancer: No Mother Family History: Unknown Living Status: Hx Family Asthma: Yes Hx Family Congestive Heart Failure: Yes Hx Family Hypertension: Yes Hx Family Stroke: No Hx Cardiac Disease: Yes Hx Family Diabetes: Yes Hx Family Cancer: No Physical Exam - Physical Exam General Appearance: Alert, Comfortable, Well Developed, Well Groomed, Well Hydrated, Well Nourished, Other - Mild distress Head Injury: no evidence of injury Eye Exam: bilateral normal ENT Exam: hearing grossly normal, no evidence of ENT injury, no dental injury Neck Exam: non-tender, full range of motion, normal alignment, normal inspection Cardiovascular/Respiratory: regular rate, rhythm, no M/R/G, normal peripheral pulses, no JVD Gastrointestinal/Abdominal: normal bowel sounds, non tender, soft, no organom egaly Back Exam: normal inspection, no CVA tenderness, no vertebral tenderness Extremity Exam: tenderness - Left knee with associated swelling decreased range of motion secondary to swelling. Neurologic: district supervisor II-XII nml as tested, no motor/sensory deficits, alert, normal mood/affect, oriented x 3 Skin Exam: normal color, warm/dry - [place] Coma Score Best Eye Response ([place]): (4) open spontaneously Best Verbal Response ([place]): (5) oriented Best Motor Response ([place]): (6) obeys commands [place] Total: 15 Progress - Progress Progress: Differential diagnosis: Knee dislocation, femur fracture, hardware failure, knee sprain among others. 02/05/20 23:20 Patient with a lateral condyle the fracture on her femur. Patient is adamant about not being admitted as she has a for her brother at 10 AM in the morning. I have agreed with patient to place her in a long-leg knee immobilizer. I discussed this also with her son who is here and staying with her. Plan on discharge home in a wheelchair. Patient does have a wheelchair at home. She understands that she is completely nonweightbearing. She will call her PCP in the morning to arrange for home health and will call Dr. ramos in the morning for orthopedic follow-up in the next 1 to 2 days. Both the patient and the son understand the risk associated with going home but chooses to be discharge for personal reasons. Tk Wong M.D. #[id number] - Results/Orders Results/Orders: EXAM DESCRIPTION: X-ray, left knee, two views CLINICAL HISTORY: left knee pain after it buckled and pt fell COMPARISON: None FINDINGS: AP and lateral views of the left knee. Postoperative changes of left total knee arthroplasty prosthesis. Adjacent to the lateral aspect of the femoral component, there is a minimally displaced fracture of the lateral femoral condyle/epicondyle, which appears acute. Anatomic alignment. No additional fracture seen. No evidence of subsidence. No joint effusion. IMPRESSION: Acute appearing lateral femoral condyle/epicondyle periprosthetic fracture. Electronically signed by: Jose Levine MD 02/05/2020 10:43 PM Departure - Departure Clinical Impression: Fracture of condyle of left femur Qualifiers: Encounter type: initial encounter Fracture type: closed Fracture alignment: displaced Qualified Code(s): S72.412A - Displaced unspecified condyle fracture of lower end of left femur, initial encounter for closed fracture Time of Disposition: 23:24 Disposition: Discharge to Home or Self Care Condition: Fair Departure Forms: ED Discharge - Pt. Copy, Patient Portal Self Enrollment Instructions: DI for Femoral Fracture Diet: resume usual diet Activity: other - No walking on left leg at all. Referrals: CRISTO ABBOTT MD [Primary Care Provider] - 1-2 Days Roque Ramos MD [Active Staff] - 1-2 Days Home Medications: Ambulatory Orders Atorvastatin Calcium [Lipitor] 20 mg PO BEDTIME 08/25/15 Clonazepam 0.5 mg PO BEDTIME 08/25/15 Montelukast [Singulair] 10 mg PO DAILY 08/25/15 Mirtazapine [Remeron] 7.5 mg PO BEDTIME 12/08/15 Fluticasone/Salmeterol 250/50 [Advair 250/50 Diskus] 1 puff INH DAILY 05/19/16 SITagliptin [Januvia] 50 mg PO DAILY #30 tab 10/15/16 Insulin Glargine [Toujeo Solostar] 20 unit SC DAILY 04/13/17 Potassium Chloride [Micro-K] 10 meq PO DAILY 04/13/17 Promethazine HCl 25 mg PO Q6H PRN 04/13/17 Meclizine HCl 25 mg PO BEDTIME #0 04/16/17 Cyanocobalamin [B12] 1,000 mcg PO MONTHLY 07/22/17 Furosemide Tab [Lasix Tab] 20 mg PO DAILY 07/22/17 Omeprazole Magnesium [Prilosec Otc] 20 mg PO DAILY 07/22/17 Albuterol Sulfate [Ventolin Hfa] 1 puff IN BID 04/26/18 Gvoipwqtnct-Kfpvrglmdbxw-Ujvzg [Trelegy Ellipta 100-62.5-25 Mcg/INH] 1 puff IN DAILY 04/26/18 rOPINIRole HCL [Requip] 1 mg PO BEDTIME 04/26/18 predniSONE 40 mg PO DAILY #12 tab 05/01/18 Hydroxychloroquine Sulfate [Hydroxychloroquine Sulfat] 200 mg PO DAILY 02/05/20 Leflunomide 10 mg PO DAILY 02/05/20 Tizanidine HCl 2 mg PO BEDTIME 02/05/20
[2020-02-05] MEDS ORDERED: fentaNYL CITRATE INJ 50 MCG/ML 2 ML AMP IM ONE (23:26)
[2020-02-05] MEDS ORDERED: ONDANSETRON ODT 8 MG TAB SL ONE (23:27)
[2020-02-06] MEDS ORDERED: ONDANSETRON INJ 4 MG/2 ML VIAL IV ONE (00:11)
[2020-02-06] MEDS ORDERED: SODIUM CHLORIDE 0.9% (FLUSH) 10 ML SYG IV PRN ×2 (00:11→00:20)
[2020-02-06] MEDS ORDERED: ONDANSETRON INJ 4 MG/2 ML VIAL IV PRN (00:23)
--- NOTE | 2020-02-06 00:27 | RAD ---
CHEST 1 VIEW on 02/06/2020 CLINICAL INDICATION: Fall, preop left femur fracture fixation COMPARISON: 04/30/2018 FINDINGS: There is a large hiatal hernia. Dextroscoliosis and degenerative changes are noted in the spine. Heart is borderline in size. Mild chronic interstitial changes are noted. Lungs are otherwise clear. Degenerative changes are noted in the shoulders. IMPRESSION: 1. Large hiatal hernia. 2. No acute cardiopulmonary disease. Electronically signed by: Horace Venegas 02/06/2020 12:26 AM CDT
[2020-02-06] MEDS ORDERED: IV SET AND CAP CHANGE INJ INJ SCH (00:30)
--- NOTE | 2020-02-06 00:43 | HP ---
SUPERVISING PHYSICIAN: Scott Solorzano MD CHIEF COMPLAINT: Left knee pain. HISTORY OF PRESENT ILLNESS: This is an 79-year-old female with a history of a left total knee arthroplasty who was getting out of her car, stepped and states that her knee kind of twisted and she fell on the ground. She complains of left knee pain and came to the Emergency Room. In the ER, her workup included x-rays which revealed a lateral femoral condyle/epicondyle periprosthetic fracture. She has had some nausea associated with this. She was given some fentanyl as well as some Zofran in the Emergency Room. Initially, she was going to be placed in a brace and sent home due to the fact that her brother has a today, however, it was felt that she could not manage at home, so she was admitted for consultation with Dr. Barboza. The patient is alert and oriented. She still complains of some left lateral knee pain, but otherwise no distress. PAST MEDICAL HISTORY: 1. Chronic obstructive pulmonary disease. 2. Diabetes mellitus, type 2. 3. Hypertension. 4. Degenerative joint disease. 5. Osteoporosis. 6. History of seizure disorder. 7. Rheumatoid arthritis. 8. Gastroesophageal reflux disease. 9. History of congestive heart failure. 10. Iron deficiency anemia. 11. History diverticulosis. 12. Restless leg syndrome. PAST SURGICAL HISTORY: 1. Hip replacements. 2. Knee replacements. 3. Hysterectomy. 4. Bladder suspension. 5. Breast reduction. 6. Hernia repair. 7. Back surgery. 8. Tonsillectomy. 9. Appendectomy. 10. Cholecystectomy. 11. Cataract surgery. HOME MEDICATIONS: 1. Januvia 50 mg p.o. daily. 2. Prednisone. 3. Meclizine 25 mg p.o. at bedtime. 4. Tizanidine 2 mg p.o. at bedtime. 5. Requip 1 mg p.o. at bedtime. 6. Promethazine 25 mg q.6h. p.r.n. for nausea. 7. Micro-K 10 mEq p.o. daily. 8. Prilosec 20 mg p.o. daily. 9. Singulair 10 mg p.o. daily. 10. Remeron 7.5 mg p.o. at bedtime. 11. Leflunomide 10 mg p.o. daily. 12. Toujeo 20 units q daily. 13. Hydroxychloroquine 200 mg p.o. daily. 14. Lasix 20 mg p.o. daily. 15. Fluticasone/salmeterol 250/50 1 puff daily. 16. Trelegy 1 puff daily. 17. B12 1000 mcg p.o. monthly. 18. Clonazepam 0.5 mg p.o. at bedtime. 19. Lipitor 20 mg p.o. at bedtime. 20. Albuterol HFA 1 puff inhaled b.i.d. ALLERGIES: 1. Amitriptyline. 2. Ciprofloxacin. 3. Codeine. 4. Vasotec. 5. Iodine. 6. Naloxone. 7. Penicillin G. 8. Pentazocine. 9. Tetanus toxoid. 10. Morphine. FAMILY HISTORY: Reviewed and noncontributory. SOCIAL HISTORY: She has never smoked herself, but was around secondhand smoke for years. No alcohol, no illicit drugs. REVIEW OF SYSTEMS: Other than the left knee pain her system review is negative. PHYSICAL EXAMINATION: VITAL SIGNS: Blood pressure 162/81. Heart rate 71. Respiratory rate 15. Temperature 97.1. Oxygen saturation 98%. GENERAL: Ms. Ramirez is an 79-year-old female in no active distress currently. NEUROLOGIC: The patient is alert. LUNGS: Clear to auscultation bilaterally. CARDIOVASCULAR: Regular rate and rhythm. Normal S1, S2. ABDOMEN: Soft. Positive bowel sounds. GENITOURINARY: Deferred. EXTREMITIES: Lower extremities with no edema. The left lower extremity is in a rigid brace. Peripheral pulses are 2+. Capillary refill is less than 2 seconds. LABORATORY: Labs reviewed show hemoglobin 9.9, hematocrit 29.0. Chemistry shows sodium 128, potassium 3.4, chloride 97, glucose 142, magnesium 1.6. ASSESSMENT: 1. Acute lateral femoral condyle/epicondyle periprosthetic fracture. 2. Diabetes mellitus, type 2. 3. Chronic obstructive pulmonary disease with no acute exacerbation. 4. Hypertension. PLAN: The patient will be admitted and pain control will be provided. The patient's home medications will be restarted as well. We will await evaluation by Dr. Barboza for any kind of intervention. We will hold off on DVT prophylaxis until we know more from Dr. Barboza. She is NPO for now. [facility][id number] [facility]
[2020-02-06] MEDS ORDERED: METOPROLOL TARTRATE INJ 5 MG/5 ML VIAL IV ONE ×3 (00:45→01:48)
[2020-02-06] MEDS: fentaNYL CITRATE INJ 50 MCG/ML 2 ML AMP IV PRN ×2 (06:19→10:27)
[2020-02-06] MEDS ORDERED: PROMETHAZINE HCL 25 MG TAB PO PRN (07:58)
[2020-02-06] MEDS ORDERED: CYANOCOBALAMIN 1000 MCG PO SCH (08:00)
[2020-02-06] MEDS ORDERED: NON-FORMULARY MEDICATION 1 EA MIS (Omeprazole Magnesium [Prilosec Otc] 20 MG) PO SCH (09:00)
[2020-02-06] MEDS ORDERED: NON-FORMULARY MEDICATION 1 EA MIS (Potassium Chloride [Micro-K] 10 MEQ) PO SCH (09:00)
[2020-02-06] MEDS ORDERED: predniSONE 20 MG TAB PO SCH (09:00)
[2020-02-06] MEDS: ALBUTEROL INH (ER DISPENSE) 1 EA INH INH SCH ×2 (10:00→21:30)
--- NOTE | 2020-02-06 11:34 | CT ---
EXAM DESCRIPTION: Lower Extremity CLINICAL HISTORY: 79 years Female, fracture COMPARISON: Radiographs of the left knee dated 02/05/2020. TECHNIQUE: CT of the left knee was performed without intravenous contrast administration. 3-D, Sagittal and coronal reconstructions were reviewed. This exam was performed according to our departmental dose-optimization program, which includes automated exposure control, adjustment of the mA and/or kV according to patient size and/or use of iterative reconstruction technique. FINDINGS: Limited examination due to streak artifact from total knee arthroplasty. The hardware appears intact. A transversely oriented fracture is identified through the distal femur immediately above the femoral prosthesis. No significant displacement of the fracture fragments. Moderate-sized lipohemarthrosis is noted. Diffuse soft tissue swelling is also identified. Remainder of the visualized bones appear normal. Atherosclerotic calcifications of the visualized vasculature. IMPRESSION: A transversely oriented fracture is identified through the distal femur immediately above the femoral prosthesis. Moderate-sized lipohemarthrosis is noted. Electronically signed by: Bonnie Nichole MD 02/06/2020 11:32 AM CDT
[2020-02-06] MEDS: OMEPRAZOLE CAP 20 MG CAP PO SCH (14:30)
[2020-02-06] MEDS: POTASSIUM CHLORIDE 10 MEQ TAB PO SCH (14:30)
[2020-02-06] MEDS: INSULIN GLARGINE 20 UNIT SC SCH (14:31)
[2020-02-06] MEDS: FUROSEMIDE 40 MG TAB PO SCH (14:31)
[2020-02-06] MEDS: SITagliptin 50 MG TAB PO SCH (14:31)
[2020-02-06] MEDS: MONTELUKAST 10 MG TAB PO SCH (14:31)
[2020-02-06] MEDS: NON-FORMULARY MEDICATION 1 EA MIS (Leflunomide [Leflunomide] 10 MG) PO SCH (14:32)
[2020-02-06] MEDS: HYDROcodone 5MG/APAP 325MG 1 EA TAB PO PRN (15:03)
[2020-02-06] MEDS: NON-FORMULARY MEDICATION 1 EA MIS (Fluticasone-Umeclidinium-Vilan [Trelegy Ellipta 100-62. IN SCH (17:49)
[2020-02-06] MEDS ORDERED: ATORVASTATIN 20 MG TAB PO ONE (19:51)
[2020-02-06] MEDS ORDERED: MECLIZINE HCL 12.5 MG TAB ONE (19:51)
[2020-02-06] MEDS ORDERED: tiZANidine 4 MG TAB ONE (19:51)
[2020-02-06] MEDS ORDERED: MIRTAZAPINE 15 MG TAB ONE (19:52)
[2020-02-06] MEDS ORDERED: ATORVASTATIN 20 MG TAB PO SCH (21:00)
[2020-02-06] MEDS ORDERED: MECLIZINE HCL 25 MG PO SCH (21:00)
[2020-02-06] MEDS ORDERED: MECLIZINE HCL 12.5 MG TAB PO SCH (21:00)
[2020-02-06] MEDS ORDERED: TIZANIDINE HCL 2 MG PO SCH (21:00)
[2020-02-06] MEDS ORDERED: tiZANidine 4 MG TAB PO SCH (21:00)
[2020-02-06] MEDS ORDERED: MIRTAZAPINE 15 MG TAB PO SCH (21:00)
[2020-02-07] MEDS: HYDROcodone 5MG/APAP 325MG 1 EA TAB PO PRN ×2 (05:37→13:16)
[2020-02-07] MEDS: OMEPRAZOLE CAP 20 MG CAP PO SCH (06:29)
[2020-02-07] MEDS: ALBUTEROL INH (ER DISPENSE) 1 EA INH INH SCH (07:38)
[2020-02-07] MEDS: NON-FORMULARY MEDICATION 1 EA MIS (Fluticasone-Umeclidinium-Vilan [Trelegy Ellipta 100-62. IN SCH (09:03)
[2020-02-07] MEDS: FUROSEMIDE 40 MG TAB PO SCH (09:04)
[2020-02-07] MEDS: POTASSIUM CHLORIDE 10 MEQ TAB PO SCH (09:04)
[2020-02-07] MEDS: INSULIN GLARGINE 20 UNIT SC SCH (09:04)
[2020-02-07] MEDS: SITagliptin 50 MG TAB PO SCH (09:04)
[2020-02-07] MEDS: MONTELUKAST 10 MG TAB PO SCH (09:05)
[2020-02-07] MEDS: NON-FORMULARY MEDICATION 1 EA MIS (Leflunomide [Leflunomide] 10 MG) PO SCH (09:06)
[2020-02-07] MEDS: fentaNYL CITRATE INJ 50 MCG/ML 2 ML AMP IV PRN (09:19)
[2020-02-07 10:51] VITALS: BP 155/66; TEMP 97.8; O2SAT 95
--- NOTE | 2020-02-08 08:25 | CONS ---
CHIEF COMPLAINT: Left knee pain. HISTORY OF PRESENT ILLNESS: Cristian is an 79-year-old female with a history of pain in the left knee. This was onset after she got out of the car on 02/06/20. She had pain that was isolated there and did not have any other pain. She was seen in the Emergency Room and x-rays revealed a fracture near the prosthesis from her previous total knee arthroplasty. PAST MEDICAL HISTORY: 1. Chronic obstructive pulmonary disease. 2. Diabetes. 3. Hypertension. 4. Degenerative joint disease. 5. Seizures. 6. Rheumatoid arthritis. 7. Gastroesophageal reflux disease. 8. Congestive heart failure. 9. Anemia. 10. Diverticulosis. 11. Restless legs. PAST SURGICAL HISTORY: 1. Bilateral knee replacement. 2. Bilateral hip replacement. 3. Hysterectomy. 4. Bladder suspension. 5. Breast reduction. 6. Hernia repair. 7. Tonsillectomy. 8. Appendectomy. 9. Cholecystectomy. 10. Cataract removal. MEDICATIONS: 1. Januvia. 2. Prednisone. 3. Meclizine. 4. Tizanidine. 5. Requip. 6. Promethazine. 7. Prilosec. 8. Singulair. 9. Remeron. 10. Leflunomide. 11. Toujeo. 12. Hydroxychloroquine. 13. Lasix. 14. Fluticasone. 15. Trelegy. 16. Multivitamins. 17. Lipitor. 18. Albuterol. ALLERGIES: 1. Amitriptyline. 2. Ciprofloxacin. 3. Codeine. 4. Vasotec. 5. Iodine. 6. Naloxone. 7. Penicillin G. 8. Pentazocine. 9. Tetanus toxoid. 10. Morphine. SOCIAL HISTORY: The patient does not drink, smoke or use any illicit drugs. FAMILY HISTORY: None pertinent to today's complaint. REVIEW OF SYSTEMS: Negative except as indicated in the History of Present Illness. PHYSICAL EXAMINATION: MENTAL STATUS: The patient is awake, alert, and is able to give a good history and participate in the physical. The patient is oriented to person, place and time. SKIN: Normal tone and turgor. HEENT: Normocephalic, atraumatic. Pupils equal, round and reactive. Mucosal membranes are moist. NECK: Normal range of motion. No thyromegaly, no lymphadenopathy. CHEST: Normal respiratory excursion. CARDIAC: Regular rate and rhythm. No murmurs, rubs or gallops. MUSCULOSKELETAL: Everything is negative per the patient's report except the left lower extremity shows some swelling and pain around the knee. She has no overall malalignment or deformity. Sensation in the extremity is intact. Range of motion is unable to be tested secondary to discomfort. The bilateral upper extremities show full active range of motion. The right lower extremity shows no evidence of deformity. Sensation is intact. It is warm and well perfused and has full range of motion. RADIOLOGY: X-rays and CT scan have been done that show minimally displaced fracture of the lateral condylar region of the total knee arthroplasty. There has been no change in position or alignment of the extremity. ASSESSMENT: 1. Periprosthetic fracture. PLAN: The plan at this point is for bracing with non-weightbearing. I think that given the nature of her fracture that no intervention is needed. She will be placed in a brace and will be placed for detention care. She will followup with us in about 10 days for x-rays. #[id number] [facility]
--- NOTE | 2020-02-26 14:39 | DS ---
SUPERVISING PHYSICIAN: Scott Solorzano MD DISCHARGE DIAGNOSES: 1. Acute lateral femoral condyle/epicondyle periprosthetic fracture. 2. Diabetes mellitus, type 2. 3. Chronic obstructive pulmonary disease with no acute exacerbation. 4. Hypertension. HISTORY OF PRESENT ILLNESS: This is an 79-year-old female with a history of a left total knee arthroplasty who was getting out of her car. She twisted her knee and fell on the ground. There were complains of left knee pain and came to the Emergency Room. In the ER, her workup included x-rays that revealed a lateral femoral condyle/epicondyle periprosthetic fracture. She had some nausea associated with this. She was given fentanyl as well as some Zofran in the Emergency Room. She was actually to be put in a brace and sent home but her brother had to go to a and it was felt that she could stay overnight with a consultation by Dr. Barboza and to go home the next day. HOSPITAL COURSE: She was placed in observation in the hospital and pain control was provided. Her home medications will be restarted. Dr. Barboza saw the patient in consultation. She was placed in a brace for non-weightbearing and it was decided that she would benefit from going to a long-term care facility. It was decided that the patient would be discharged to [facility] for rehabilitation and physical therapy. LABORATORY: CBC was unremarkable. Sodium slightly low at 128, potassium 3.4, chloride 97. She had a calcium of 8.2 and magnesium of 1.46. She did receive supplementation of potassium and magnesium. Her radiology reports are as per the history of present illness. DISCHARGE PLAN: The patient will be discharged to [facility] for physical therapy and rehabilitation. She is discharged in good condition. She is to resume her usual diet and followup with Dr. Barboza in 10 days as [address] Garcia in the next one to two weeks. She is to be discharged on her routine medications. There are no new medications prescribed. She is to return to the hospital or followup with Dr. Barboza or Dr. Garcia for any problems or complications. DISCHARGE MEDICATIONS: 1. Singulair. 2. Clonazepam. 3. Lipitor. 4. Remeron. 5. Advair. 6. Januvia. 7. Promethazine. 8. Potassium chloride. 9. Toujeo. 10. Meclizine. 11. Rifamide. 12. Cyanocobalamin. 13. Prilosec. 14. Requip. 15. Albuterol sulfate. 16. Trelegy Ellipta. 17. Prednisone. 18. Tizanidine. 19. Leflunomide. 20. Hydroxychloroquine. #[id number] [facility]
== END 2020-02-07 14:14 ==
LOC: ER 22:09 → MS 02-06 00:41
PROVIDERS: ADMIT Nurse Practitioner; ATTEND Nurse Practitioner Acute Care
DX: S72.422A Displaced fracture of lateral condyle of left femur, initial encounter for closed fracture (principal); M97.12XA Periprosthetic fracture around internal prosthetic left knee joint, initial encounter; M25.062 Hemarthrosis, left knee; E11.9 Type 2 diabetes mellitus without complications; J44.9 Chronic obstructive pulmonary disease, unspecified; I11.0 Hypertensive heart disease with heart failure; I50.9 Heart failure, unspecified; I25.10 Atherosclerotic heart disease of native coronary artery without angina pectoris; F03.90 Unspecified dementia, unspecified severity, without behavioral disturbance, psychotic disturbance, mood disturbance, and anxiety; K21.9 Gastro-esophageal reflux disease without esophagitis; G40.909 Epilepsy, unspecified, not intractable, without status epilepticus; M06.9 Rheumatoid arthritis, unspecified; M81.0 Age-related osteoporosis without current pathological fracture; G25.81 Restless legs syndrome; D50.9 Iron deficiency anemia, unspecified; K44.9 Diaphragmatic hernia without obstruction or gangrene; I25.2 Old myocardial infarction; W18.39XA Other fall on same level, initial encounter; Y93.89 Activity, other specified; Y92.008 Other place in unspecified non-institutional (private) residence as the place of occurrence of the external cause; Z96.653 Presence of artificial knee joint, bilateral; Z96.643 Presence of artificial hip joint, bilateral; Z66 Do not resuscitate; Z79.4 Long term (current) use of insulin; Z79.1 Long term (current) use of non-steroidal anti-inflammatories (NSAID); Z79.51 Long term (current) use of inhaled steroids; Z79.899 Other long term (current) drug therapy; Z88.1 Allergy status to other antibiotic agents; Z88.6 Allergy status to analgesic agent; Z88.8 Allergy status to other drugs, medicaments and biological substances; Z88.0 Allergy status to penicillin; Z88.7 Allergy status to serum and vaccine; Z95.5 Presence of coronary angioplasty implant and graft; Z77.22 Contact with and (suspected) exposure to environmental tobacco smoke (acute) (chronic)
CPT/HCPCS: 29530; 96374; 96375; 96376 ×2; 96372; J3010 ×4; J2060; A4216; 36415; 82550; 80048; 82553; 85025; 85730; 85610; 84484; 80076; 87070; 71045; 73562; 73700; 94760 ×2; 94664; 94640 ×2; 99285; 93005 ×2; G0378

== ENCOUNTER → 2020-03-13 | Outpatient (CLI) | payer MEDICARE, MEDICAID ==
--- NOTE | 2020-03-13 14:05 | RAD ---
EXAM DESCRIPTION: Knee x-ray Left 2 Views CLINICAL HISTORY: 79 years, Female, PERIPROSTHETIC FRACTURE COMPARISON: Previous x-ray left knee February 21, 2020 TECHNIQUE: Two x-ray views of the left knee FINDINGS: Total left knee arthroplasty. Fractured distal femoral metaphysis unchanged in alignment compared to previous. Fracture line is not as well seen suggesting partial healing. Lateral view shows normal position of the patella. No significant joint effusion. Anatomic alignment of tibial and femoral components. IMPRESSION: Healing fracture of the distal left femur. Electronically signed by: Apollo Butt MD 03/13/2020 2:03 PM CDT
== END ==
LOC: RAD 10:13
PROVIDERS: ATTEND Orthopaedic Surgery
DX: M97.12XD Periprosthetic fracture around internal prosthetic left knee joint, subsequent encounter (principal); S72.402D Unspecified fracture of lower end of left femur, subsequent encounter for closed fracture with routine healing

== ENCOUNTER → 2020-04-14 | Outpatient (CLI) | payer MEDICARE, MEDICAID ==
--- NOTE | 2020-04-14 15:39 | RAD ---
Frontal and lateral views of the left knee. Indication: PERIPROSTHETIC FX LEFT Comparison: March 13, 2020 Impression: Left total knee arthroplasty and patellar resurfacing changes redemonstrated in addition to a periprosthetic fracture of the distal femur. Fracture alignment appears stable. Mild sclerosis about the fracture sites as well as mild periostitis. The fracture remains incompletely united at this time with mild progressive union. Electronically signed by: Mike Nazario MD 04/14/2020 3:38 PM CDT
== END | disposition home or self-care (01) ==
LOC: RAD 09:45
PROVIDERS: ATTEND Orthopaedic Surgery
DX: M97.12XD Periprosthetic fracture around internal prosthetic left knee joint, subsequent encounter (principal)

== ENCOUNTER → 2020-05-21 | Outpatient (CLI) | payer MEDICARE, MEDICAID ==
[~2020-05-21] MED LIST: ACETAMINOPHEN 500 MG TAB ONE; ACETAMINOPHEN 500 MG TAB PO SCH; FAMOTIDINE IV PREMIX 50 ML IVPB SCH; IRON DEXTRAN IVPB ONE; SODIUM CHLORIDE 0.9% IVPB ONE
== END ==
LOC: INFRM 08:00
PROVIDERS: ATTEND Internal Medicine Hematology & Oncology
DX: D64.9 Anemia, unspecified (principal)
CPT/HCPCS: 96365; 96367; J1750; J3490; J7050

== ENCOUNTER → 2020-05-27 | Outpatient (CLI) | payer MEDICARE, MEDICAID ==
[~2020-05-27] MED LIST changes: -ACETAMINOPHEN 500 MG TAB ONE; +ACETAMINOPHEN 500 MG TAB PO ONE; -ACETAMINOPHEN 500 MG TAB PO SCH; +IRON DEXTRAN 500 MG in SODIUM CHLORIDE 0.9% 500ML 500 ML IVPB ONE; -IRON DEXTRAN IVPB ONE; -SODIUM CHLORIDE 0.9% IVPB ONE
== END ==
LOC: INFRM 14:46
PROVIDERS: ATTEND Internal Medicine Hematology & Oncology
DX: D64.9 Anemia, unspecified (principal)
CPT/HCPCS: 96365; 96366; 96367; J1750; J3490; J7040

== ENCOUNTER → 2020-07-03 | Outpatient (CLI) | payer MEDICARE, MEDICAID | LOC: NC 13:32 | PROVIDERS: ATTEND Internal Medicine Hematology & Oncology | DX: D50.9 Iron deficiency anemia, unspecified (principal); D64.9 Anemia, unspecified; I50.9 Heart failure, unspecified; M06.9 Rheumatoid arthritis, unspecified; E53.8 Deficiency of other specified B group vitamins ==